=== PATIENT | male | born 1985 | race Caucasian/White ===

== ENCOUNTER 2023-07-17 13:23 | Outpatient (AMB) | payer OTHER, SELFPAY ==
--- NOTE | 2023-07-17 13:49 | AM.OFFWIN_ITS ---
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 Patient is reporting shortness of breath, sore throat. Symptoms present for the past few days. In addition patient has been almost having a panic attack. He reports symptoms of nervousness and difficulty breathing. He was taking Zoloft, gabapentin and clonidine for his symptoms. His insurance changed and he has been out of medications for the past 2 weeks. Has not seen his therapist recently. Physical Exam Vital Signs: Last Vital Signs Temp 97.3 F 07/17/23 13:53 Pulse 119 H 07/17/23 13:53 BP 112/70 07/17/23 13:53 Pulse Ox 85 L 07/17/23 13:53 Oxygen Delivery Method Room Air 07/17/23 13:53 BMI result Body Mass Index 32.1 Const General: cooperative and healthy appearing Nutritional Appearance: well nourished Orientation/consciousness: patient oriented x3 Limitations: no limitations HEENT Head: Yes normal to inspection Eyes General: appearance normal, both eyes and all related structures Neck Neck: Yes normal visual inspection Chest Chest palpation & inspection: normal palpation of entire chest wall Resp Effort & Inspection: normal respiratory effort Cardio Other: S1, S2, tachycardia Neuro General: patient oriented x3 Results AMB Rapid Strep AMB Rapid Strep Positive Last Edit by Hollie Woods MA on 07/17/23 14:10 Results Reviewed Results Reviewed: Laboratory Last Values Strep Scn [facility] Positive 07/17/23 14:09 Assessment & Plan Assessment & Plan (1) Upper respiratory tract infection: Code(s): J06.9 - Acute upper respiratory infection, unspecified Plan: Azithromycin called in. Strep test was positive. (2) Panic attack: Code(s): F41.0 - Panic disorder [episodic paroxysmal anxiety] Plan: His medications were refilled. Patient was seen by the community navigator and advised given. I have agreed to see him as a primary care provider. Patient will see me in the [place] office in the coming 2 weeks. Medications: New clonidine HCl 0.1 mg PO BID 60 tabs 0RF gabapentin 600 mg PO TID 90 tabs 0RF sertraline 100 mg PO QAM 30 tabs 0RF albuterol sulfate 90 mcg/actuation (Ventolin HFA) 1 inh inhalation QID PRN 8.5 grams 1RF shortness of breath or wheezing azithromycin take 500 mg today (day 1), then 250 mg for 4 days (days 2-5) PO 6 tabs 0RF Coding Level of Care Code New Pt Level 4 (95852) Diagnoses Upper respiratory tract infection J06.9 Panic attack F41.0
[2023-07-17 13:53] VITALS: BP 112/70; PULSE 119; TEMP 36.3; O2SAT 85; BMI 32.1
== END 2023-07-17 15:08 | disposition home or self-care (01) ==
PROVIDERS: Visit Provider Internal Medicine
DX: J06.9 Acute upper respiratory infection, unspecified (principal); F41.0 Panic disorder [episodic paroxysmal anxiety]
CPT/HCPCS: 99204

== ENCOUNTER 2023-08-02 10:56 | Outpatient (AMB) | payer OTHER, SELFPAY ==
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
[2023-08-02 11:42] VITALS: BP 100/66; PULSE 95; O2SAT 97; BMI 31.3
== END 2023-08-02 15:45 | disposition home or self-care (01) ==
PROVIDERS: Visit Provider Internal Medicine
DX: F41.1 Generalized anxiety disorder (principal)
CPT/HCPCS: 99214

== ENCOUNTER 2023-08-30 10:36 | Outpatient (AMB) | payer OTHER, SELFPAY ==
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
== END 2023-08-30 14:25 | disposition home or self-care (01) ==
LOC: HO.HOP 10:36
PROVIDERS: PCP Internal Medicine; Visit Provider Clinical Nurse Specialist Psychiatric/Mental Health
DX: F33.1 Major depressive disorder, recurrent, moderate (principal); F41.1 Generalized anxiety disorder; F41.0 Panic disorder [episodic paroxysmal anxiety]; R53.83 Other fatigue
CPT/HCPCS: 99204

== ENCOUNTER → 2023-08-30 10:36 | Outpatient (BNVA) | payer OTHER, SELFPAY | PROVIDERS: PCP Internal Medicine; Visit Provider Clinical Nurse Specialist Psychiatric/Mental Health | DX: F33.1 Major depressive disorder, recurrent, moderate (principal); F41.1 Generalized anxiety disorder; F41.0 Panic disorder [episodic paroxysmal anxiety] | CPT/HCPCS: 99202 ==

== ENCOUNTER 2023-09-05 13:57 | Outpatient (AMB) | payer OTHER, SELFPAY ==
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
[2023-09-05 14:03] VITALS: BP 120/70; PULSE 87; O2SAT 93; BMI 31.9
== END 2023-09-05 14:27 | disposition home or self-care (01) ==
PROVIDERS: PCP Internal Medicine; Visit Provider Internal Medicine
DX: F33.1 Major depressive disorder, recurrent, moderate (principal); M54.50 Low back pain, unspecified; G89.29 Other chronic pain
CPT/HCPCS: 99214; G2211

== ENCOUNTER 2023-09-27 10:43 | Outpatient (AMB) | payer OTHER, SELFPAY ==
--- NOTE | 2023-09-27 11:04 | A.OFFPSYCH_ITS ---
Intake Intake Visit Reasons: Depression Allergies No Known Allergies Allergy (Verified 09/05/23 14:34) Medication List - Last Reconciled 09/28/23 by Layla Harris APRN albuterol sulfate 90 mcg/actuation (Ventolin HFA) 1 inh inhalation QID PRN aripiprazole 2.5 mg (1/2 x 5 mg) PO BID clonazepam 0.5 mg orally take 1/2 tablet in morning if needed and take one tablet at bedtime; clonidine HCl 0.1 mg PO BEDTIME gabapentin 600 mg PO TID sertraline 200 mg (2 x 100 mg) PO QAM HPI- Psychiatric Chief Complaint: Depression HPI Narrative: pt reports improvements in mood and anxiety; feels less overwhelmed and less pressure; he still ruminates and feels bad about himself sometimes but is starting to see how stress and fatigue make that worse; increased self care and ability to verbalize feelings/needs. He reports no side effects. he continues to have anxiety and ruminate especially at [facility]. He is still anxious although the frequency and intensity is less. no SI or HI. no denis; no psychosis. Past Psychiatric History: treated for depression and anxiety at age 21 outpatient for short period Subjective Subjective Subjective Medication Compliance: Yes Side effects from medications: No Review of Systems Medical Review of Systems: unchanged Mental Status Exam Mental Status Exam Patient Appearance: Well Grooomed and Appropriate Patient Orientation: Person, Place, Time and Situation Level of Consciousness: Awake Patient Behavior: Appropriate Mood Description: Anxious Affect Description: Anxious Patient Cognition Impaired: No Ability to Follow Directions: Good Speech Pattern: Clear Memory Description: Intact Hallucinations: None Delusions: Not Present Thought Process: Intact, Rumination and Goal Oriented Thought Content: positive for Intact and positive for Goal Oriented Judgement: Good Assessment and Plan Assessment & Plan (1) Generalized anxiety disorder with panic attacks: Status: Acute Code(s): F41.1 - Generalized anxiety disorder; F41.0 - Panic disorder [episodic paroxysmal anxiety] (2) Major depressive disorder, recurrent, moderate: Status: Acute Code(s): F33.1 - Major depressive disorder, recurrent, moderate (3) Fatigue: Status: Acute Qualifiers: Fatigue type: chronic, unspecified Qualified Code(s): R53.82 - Chronic fatigue, unspecified Code(s): R53.83 - Other fatigue Plan increase zoloft to 200mg daily increase abilify to 2.5 mg BID continue clonidine 0.1mg at bedtime continue gabapentin 600mg tid continue clonazepam 0.5 mg take 1/2 ta in am and 1 tab in PM Medications: Changed From sertraline will need to fill early due to change of dose 150 mg (1.5 x 100 mg) PO QAM 45 tabs 0RF To sertraline will need to fill early due to change of dose 200 mg (2 x 100 mg) PO QAM 60 tabs 0RF From aripiprazole 2.5 mg (1/2 x 5 mg) PO BEDTIME 45 tabs 0RF To aripiprazole 2.5 mg (1/2 x 5 mg) PO BID 90 tabs 1RF Refilled clonidine HCl 0.1 mg PO BEDTIME 30 tabs 0RF clonazepam 0.5 mg orally take 1/2 tablet in morning if needed and take one tablet at bedtime; 45 tabs 0RF gabapentin 600 mg PO TID 90 tabs 0RF Counseling and coordination of Care Pt. Self Management counseling: Maintenance-social rhythm, Mindfulness, Sleep hygiene, Behavior activation and Cognitive restructuring Medication management counseling: Effectiveness, Side effects, Dosing range, Duration, Drug interaction and Adherence Diagnosis and Prognosis Counseling: Accuracy of diagnosis, Prognosis over time, Impact of diagnosis on life functions, Impact of family relationship, Problematic behaviors secondary to diagnosis and Adequacy of current interventions Details: I spent 30 minutes reviewing the record, seeing the patient and documenting in the medical record. Counseling provided to the patient/caregiver as outlined below. Addressed patient/caregiver concerns regarding current medication regime including eff ective adherence. Addressed patient/caregiver concerns regarding diagnosis and prognosis including accuracy of diagnosis, prognosis over time, impact of diagnosis. Addressed patient/caregiver concerns regarding impact of recent stressors. 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 mother very young age 16 when she had pt. bio father when pt age 8. pt oldest of 5 - has 2 sister and 2 brothers. pt graduated from and finished 2.5 yrs at [employer]. 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 He is and has 2 young children age 1.5 and 6 months . Has conflict with ; the family lives with his mother which can be stressful at times. Substance History: no substance abuse hx; uses etoh 1 x every few months, no THC, no opiates, no cocaine or other illicit drugs Trauma History: yes- childhood Coding Level of Care Code Est Pt Level 4 (96373) Diagnoses Generalized anxiety disorder with panic attacks F41.1; F41.0 Major depressive disorder, recurrent, moderate F33.1 Chronic fatigue R53.82 Fatigue type: chronic, unspecified
== END 2023-09-27 12:02 | disposition home or self-care (01) ==
LOC: HO.HOP 10:43
PROVIDERS: PCP Internal Medicine; Visit Provider Clinical Nurse Specialist Psychiatric/Mental Health
DX: F41.1 Generalized anxiety disorder (principal); F41.0 Panic disorder [episodic paroxysmal anxiety]; F33.1 Major depressive disorder, recurrent, moderate; R53.82 Chronic fatigue, unspecified
CPT/HCPCS: 99214

== ENCOUNTER 2023-09-27 10:43 | Outpatient (REF) | payer OTHER, SELFPAY | END 2023-09-27 10:44 | disposition home or self-care (01) | LOC: HO.LAB 10:43 | PROVIDERS: PCP Internal Medicine; Visit Provider Clinical Nurse Specialist Psychiatric/Mental Health | DX: F41.1 Generalized anxiety disorder (principal); F41.0 Panic disorder [episodic paroxysmal anxiety]; F33.1 Major depressive disorder, recurrent, moderate | CPT/HCPCS: 99212 ==

== ENCOUNTER 2023-10-25 10:30 | Outpatient (AMB) | payer OTHER, SELFPAY ==
--- NOTE | 2023-10-25 10:35 | MHC.OFFVISPS ---
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 He is not having any side effects; no sedation no dizziness, no nausea or vomiting. no SI or hI . Did not get blood work done but says he will today Past Psychiatric History: treated for depression and anxiety at age 21 outpatient for short period Subjective Subjective Subjective Medication Compliance: Yes Side effects from medications: No Review of Systems Medical Review of Systems: unchanged Mental Status Exam Mental Status Exam Patient Appearance: Well Grooomed, Perspiring and Appropriate Patient Orientation: Person, Place, Time and Situation Level of Consciousness: Awake Patient Behavior: Appropriate Mood Description: Anxious Affect Description: Anxious Ability to Follow Directions: Good Speech Pattern: Clear and Coherent Memory Description: Intact Hallucinations: None Delusions: Not Present Thought Process: Intact Thought Content: positive for Intact Judgement: Good Assessment and Plan Assessment & Plan (1) Major depressive disorder, recurrent, moderate: Status: Acute Code(s): F33.1 - Major depressive disorder, recurrent, moderate (2) Generalized anxiety disorder with panic attacks: Status: Acute Code(s): F41.1 - Generalized anxiety disorder; F41.0 - Panic disorder [episodic paroxysmal anxiety] Plan move abilify 5 mg to one in am increase clonidine o.1mg to two tabs at bedtime continue zoloft 200mg daily clonazepam 0.5mg take 1/2 qd and 1 at bedtime prn panic gabapentin 600mg tid Medications: Changed From aripiprazole 2.5 mg (1/2 x 5 mg) PO BID 90 tabs 1RF To aripiprazole 5 mg PO DAILY 30 tabs 2RF From clonidine HCl 0.1 mg PO BEDTIME 30 tabs 0RF To clonidine HCl 0.2 mg (2 x 0.1 mg) PO BEDTIME 60 tabs 2RF Refilled clonazepam 0.5 mg orally take 1/2 tablet in morning if needed and take one tablet at bedtime; 45 tabs 1RF gabapentin 600 mg PO TID 90 tabs 0RF On Hold sertraline will need to fill early due to change of dose Hold Comment: no refill need now 200 mg (2 x 100 mg) PO QAM 60 tabs 0RF Orders: Orders Hemoglobin A1c Today F33.1 - Major depressive disorder, recurrent, moderate, Z79.899 - Other intermission coordinator (current) drug therapy Counseling and coordination of Care Pt. Self Management counseling: Mod caffeine/ETOH intake and Sleep hygiene Medication management counseling: Effectiveness, Side effects, Dosing range, Duration, Drug interaction and Adherence Diagnosis and Prognosis Counseling: Accuracy of diagnosis, Prognosis over time and Adequacy of current interventions Details: I spent 30 minutes reviewing the record, seeing the patient and documenting in the medical record. Counseling provided to the patient/caregiver as outlined below. Addressed patient/caregiver concerns regarding current medication regime including effective adherence. Addressed patient/caregiver concerns regarding diagnosis and prognosis including accuracy of diagnosis, prognosis over time, impact of diagnosis. Addressed patient/caregiver concerns regarding impact of recent stressors. 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 mother very young age 17 when she had pt. bio father when pt age 8. pt oldest of 5 - has 2 sister and 2 brothers. pt graduated from and finished 2.5 yrs at [employer]. 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 He is and has 2 young children age 1.5 and 6 months . Has conflict with ; the family lives with his mother which can be stressful at times. Substance History: no substance abuse hx; uses etoh 1 x every few months, no THC, no opiates, no cocaine or other illicit drugs Trauma History: yes- childhood Coding Level of Care Code Est Pt Level 4 (45330) Diagnoses Major depressive disorder, recurrent, moderate F33.1 Generalized anxiety disorder with panic attacks F41.1; F41.0
== END 2023-10-25 10:56 | disposition home or self-care (01) ==
LOC: HO.HOP 10:30
PROVIDERS: PCP Internal Medicine; Visit Provider Clinical Nurse Specialist Psychiatric/Mental Health
DX: F33.1 Major depressive disorder, recurrent, moderate (principal); F41.1 Generalized anxiety disorder; F41.0 Panic disorder [episodic paroxysmal anxiety]
CPT/HCPCS: 99214

== ENCOUNTER 2023-10-25 10:30 | Outpatient (REF) | payer OTHER, SELFPAY | END 2023-10-25 10:31 | disposition home or self-care (01) | LOC: HO.LAB 10:30 | PROVIDERS: PCP Internal Medicine; Visit Provider Clinical Nurse Specialist Psychiatric/Mental Health | DX: F33.1 Major depressive disorder, recurrent, moderate (principal); F41.1 Generalized anxiety disorder; F41.0 Panic disorder [episodic paroxysmal anxiety] | CPT/HCPCS: 99212 ==

== ENCOUNTER 2023-11-03 12:11 | Emergency (ER) | payer OTHER, SELFPAY ==
--- NOTE | ~2023-11-03 | XR_ITS ---
EXAMINATION: XR CHEST CLINICAL INFORMATION: Reason for Exam cough COMPARISON: None TECHNIQUE: 2 views of the chest FINDINGS: Lines and tubes: None. Streaky left basilar airspace opacities likely reflecting atelectasis. No pleural effusion. No pneumothorax. Normal cardiomediastinal silhouette. XR/XR chest 2V IMPRESSION: Streaky left basilar airspace opacities likely reflecting atelectasis.
[2023-11-03 12:21] VITALS: BP 120/54; PULSE 89; RESP 16; TEMP 36.6; O2SAT 96; BMI 32.1
--- NOTE | 2023-11-03 12:21 | ED.URI ---
HPI - URI/Sore Throat General Chief Complaint: General Medical Stated Complaint: Diff breathing Time Seen by Provider: 11/03/23 12:49 Source: patient Mode of arrival: ambulatory Limitations: no limitations History of Present Illness ED Provider: SHORTY KOLB Narrative: 38 yo male with PMH of anxiety, chronic back pain, depression her with c/o 1 week cough, shortness of breath, chills, fatigue. Thought he was getting better but then felt worse again. Has hx of asthma does not have inhaler. Notes he is not feeling well. No travel, no sick contacts. Taking aleve on and off for symptoms. Trying to go to work but is tired. MD elicited complaint: cough Pertinent past history: asthma Onset (ago): week(s) (1) Consistency: intermittent Severity: moderate Description of mucous: clear and watery Able to tolerate fluids by mouth: Yes Exacerbating factors: exertion Relieving factors: nothing Associated symptoms: chills, myalgias, rhinorrhea, cough and shortness of breath Treatments prior to arrival: other (aleve) Related Data Previous Rx's ?Medication ?Instructions ?Recorded albuterol sulfate 90 mcg/actuation 1 inh inhalation QID PRN shortness 07/17/23 aerosol inhaler (Ventolin HFA) of breath or wheezing #8.5 grams aripiprazole 5 mg tablet 5 mg PO DAILY #30 tabs 10/25/23 clonazepam 0.5 mg tablet 0.5 mg PO .COMPLEX #45 tabs 10/25/23 clonidine HCl 0.1 mg tablet 0.2 mg (2 x 0.1 mg) PO BEDTIME #60 10/25/23 tabs gabapentin 600 mg tablet 600 mg PO TID #90 tabs 10/25/23 sertraline 100 mg tablet 200 mg (2 x 100 mg) PO QAM #60 tabs 10/25/23 albuterol sulfate 90 mcg/actuation 2 puff inhalation QID PRN 11/03/23 aerosol inhaler (Ventolin HFA) shortness of breath or wheezing #6.7 grams amoxicillin 875 mg-potassium 1 tab PO BID #14 tabs 11/03/23 clavulanate 125 mg tablet doxycycline hyclate 100 mg capsule 100 mg PO BID 7 days #14 caps 11/03/23 ondansetron 4 mg disintegrating 4 mg PO Q8H PRN nausea and 11/03/23 tablet vomiting #20 tabs prednisone 20 mg tablet 40 mg (2 x 20 mg) PO DAILY 4 days 11/03/23 #8 tabs Allergies Allergy/AdvReac Type Severity Reaction Status Date / Time No Known Allergies Allergy Verified 11/03/23 12:24 Review of Systems Review of Systems: Constitutional : No Fever, pos Chills, pos sweats ENT/Mouth : No Hoarseness, No sore throat, No Rhinorrhea Eyes: No Redness, No Discharge, No Vision Changes Cardiovascular : No Chest Pain, positive SOB, positive Dyspnea on Exertion, No Edema Respiratory : positive Cough, pos Sputum, positive Wheezing, Gastrointestinal : No Nausea, No Vomiting, No Diarrhea, No abdominal Pain Genitourinary : No Dysuria, No Hematuria Musculoskeletal : No joint pain, pos Myalgias Skin : No rash Neuro : pos Weakness, No Numbness, No Headache Psych : No anxiety, depression All other systems reviewed and are negative [facility] Past Medical History Attestation statement: The following information was validated with the patient. Source: old records reviewed Medical History Chronic lower back pain Generalized anxiety disorder Surgical History No pertinent past surgical history Family History Family History Mother Mental health disorder Social History Social History Housing: Apartment Alcohol intake: never Patient Tobacco Use Status: Current everyday Tobacco user Tobacco use type: Cigarette Cigarette Packs Per Day: 0.5 Cigarettes Per Day: 7 Smoked in Last 30 Days: Yes e-Cigarette/Vaping Use: Former Use Second Hand Smoke Exposure: Yes Use of substances other than those prescribed or required for medical reasons: No Advance Directives: No Do you have a plan to hurt others: No Plan service: No Current occupational status: employed 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 Oriented X3. No acute distress. Eyes: Pupils equal, round and reactive to light. ENT: Pharynx normal. Neck: Normal inspection. Neck supple. no tonsilar swelling or exudates CVS: Normal heart rate and rhythm. Pulses normal. Respiratory: No respiratory distress. Breath sounds diminished R base - rales noted Abdomen: Soft and nontender. Skin: Skin warm and dry. mildly pale skin color. Normal skin turgor. Extremities: No lower extremity edema. No calf ttp Neuro: Oriented X 3. No motor deficit. No sensory deficit. Course Course Course Narrative: This is a Rapid Medical Exam performed in triage by Roma Zavala PA-C. Full HPI, ROS and PE to be performed by primary ED provider. 38 year-old M w/ PMHx substance use, BRE, presenting to the ED c/o fatigue, generalized weakness, cough x1 week. Also reports CP, SOB. denies abdominal pain, N/V PE: pale, clammy Plan: Labs, UA, Viral testing, CXR Medications Administered Discontinued Medications Generic Name Dose Route Start Last Admin Trade Name Freq PRN Reason Stop Dose Admin Acetaminophen 975 mg 11/03/23 13:20 11/03/23 13:38 Acetaminophen 325 Mg Tablet PO 11/03/23 13:21 975 mg ONCE ONE Administration Albuterol Sulfate 2 puff 11/03/23 13:20 11/03/23 13:38 Albuterol Sulfate 90 Mcg 8 Gm Inhaler INHALE 11/03/23 13:21 2 puff ONCE ONE Administration Amoxicillin/Clavulanate Potassium 875 mg 11/03/23 14:12 11/03/23 14:19 Amoxicillin/Potassium Clav 875 Mg Tablet PO 11/03/23 14:13 875 mg ONCE ONE Administration Doxycycline Monohydrate 100 mg 11/03/23 14:12 11/03/23 14:19 Doxycycline Monohydrate 100 Mg Capsule PO 11/03/23 14:13 100 mg ONCE ONE Administration Prednisone 40 mg 11/03/23 13:20 11/03/23 13:38 Prednisone 20 Mg Tablet PO 11/03/23 13:21 40 mg ONCE ONE Administration Medical Decision Making Medical Decision Making MDM Narrative: 38 yo male with PMH of anxiety, chronic back pain, depression her with c/o cough, weakness, dyspnea at this time concern for viral syndrome vs pneumonia - will obtain basic labs, CXR, viral panel, start on steroids, inhaler and possible antibiotics. PERC negative Differential Diagnosis Differential Diagnoses: The differential diagnosis associated with the presentation includes viral syndrome, pneumonia Admission/Observation Consideration of admission/observation: Escalation of care including admission/observation considered tolerating, PO not hypoxic can be managed as outpatient Lab Data [facility] Lab Attestation statement: I reviewed the patient's lab results. 11/03/23 13:18 11/03/23 13:18 Labs: Lab Results 11/03/23 11/03/23 Range/Units 13:18 13:28 WBC 10.7 (4.8-10.8) X10*3/uL RBC 4.94 (4.60-5.80) X10*6/uL Hgb 13.3 L (14.0-18.0) g/dl Hct 40.1 L (42.0-52.0) % MCV 81.2 (80.0-98.0) fL MCH 26.9 L (27.0-33.0) pg MCHC 33.2 (31.0-36.0) g/dl RDW 13.2 (11.0-16.0) % Plt Count 346 (160-400) X10*3/uL MPV 8.8 L (9.4-12.4) fL Immature Gran % (Auto) 0.4 (0.0-0.4) % Neut % (Auto) 71.0 (45-73) % Lymph % (Auto) 18.9 L (20-40) % [place] % (Auto) 7.3 (2-11) % Eos % (Auto) 1.5 (0-4) % Baso % (Auto) 0.9 (0-2) % Lymph # (Auto) 2.0 (1.2-4.9) X10*3/uL [place] # (Auto) 0.8 (0.1-1.2) X10*3/uL Eos # (Auto) 0.2 (0.0-0.4) X10*3/uL Baso # (Auto) 0.1 (0.0-0.2) X10*3/uL Abs Immat Gran (auto) 0.04 H (0.00-0.03) X10*3/uL Absolute Neuts (auto) 7.6 (2.0-8.3) x10*3/uL Absolute Nucleated RBC 0.000 (0.0-0.012) X10*3/uL Nucleated RBC % (auto) 0.0 (0.0-0.2) /100WBC Sodium 140 (135-145) mmol/L Potassium 4.4 (3.3-5.1) mmol/L Chloride 104 (96-108) mmol/L Carbon Dioxide 25 (22-29) mmol/L Anion Gap 15 (12-20) BUN 11 (9-16) mg/dL Creatinine 0.88 (0.5-1.4) mg/dL Estim Creat Clear Calc 149.6 Estimated GFR > 60 Random Glucose 108 (60-115) mg/dL Calcium 9.8 (8.4-10.2) mg/dL Magnesium 2.0 (1.6-2.6) mg/dL Total Bilirubin 0.3 (0.0-1.0) mg/dL Direct Bilirubin 0.1 (0.0-0.5) mg/dL AST 17 (5-37) U/L ALT 14 (0-40) U/L Alkaline Phosphatase 84 (39-117) U/L Troponin I High Sens < 2.7 (<3.5-35.0) ng/L Total Protein 8.2 H (6.5-8.0) g/dL Albumin 4.1 (3.5-5.0) g/dL Urine Color Dark Yellow Urine Appearance Clear Urine pH 6.0 (5.0-9.0) Ur Specific [place] 1.025 (1.005-1.025) Urine Protein Negative (Neg-Trace) mg/dL Urine Glucose (UA) Negative (Negative) mg/dL Urine Ketones Trace (Negative) mg/dL Urine Blood Negative (Negative) Urine Nitrite Negative (Negative) Ur Leukocyte Esterase Negative (Negative) Influenza Type A (PCR) NEGATIVE (Negative) Influenza Type B (PCR) NEGATIVE (Negative) RSV RNA Qual (PCR) NEGATIVE (Negative) SARS-CoV-2 RNA (RT-PCR) NEGATIVE (Negative) Independent Interpretation I performed an independent interpretation of an: EKG and Plain X-Ray (pneumonia) Interpretation: Rate: 78 Rhythm: NSR [place]: left Normal P waves. Normal RUSTY. Normal QRS complex. ST T wave : no CODY, flat t waves v1 qTC: 446 prior studies: no acute ischemia The study has been interpreted contemporaneously by me. . Radiology Impression Discussion of test interpretation with radiology: I have reviewed the radiologist's reading. External Record Review External record reviewed: Office record Prescription Management I considered prescription management with: Antibiotic and Other Discharge Plan Discharge Clinical Impression: Pneumonia Qualifiers: Pneumonia type: due to unspecified organism Laterality: right Lung location: lower lobe of lung Qualified Code(s): J18.9 - Pneumonia, unspecified organism Patient Disposition: Home, Self-Care Instructions: Pneumonia (ED) Additional Instructions: labs reassuring CXR concerning for pneumonia flu covid rsv negative EKG and test for heart no acute ischemia rest stay hydrated next dose of antibiotics tonight - take a probiotic next dose of steroids tomorrow On amoxicillin-clavulanate, softer bowel movements are to be expected. Call your provider if you move your bowels more than 4 times a day, your bowel movements are almost all liquid, or you get a rash.? On doxycycline, do not take pills immediately before going to bed and swallow pills with plenty of water. Avoid direct sunlight, iron, antacids, and Pepto Bismol. Call your provider if you develop new ringing in your ears, new problems hearing, dizziness, difficulty swallowing, rash, abdominal discomfort, nausea, or diarrhea.? Prescriptions: New amoxicillin-pot clavulanate 875-125 mg tablet 1 tab PO BID Qty: 14 0RF albuterol sulfate [Ventolin HFA] 90 mcg/actuation HFA aerosol inhaler 2 puff inhalation QID PRN (Reason: shortness of breath or wheezing) Qty: 6.7 1RF doxycycline hyclate 100 mg capsule 100 mg PO BID 7 Days Qty: 14 0RF prednisone 20 mg tablet 40 mg PO DAILY 4 Days Qty: 8 0RF ondansetron 4 mg tablet,disintegrating 4 mg PO Q8H PRN (Reason: nausea and vomiting) Qty: 20 0RF No Action albuterol sulfate [Ventolin HFA] 90 mcg/actuation HFA aerosol inhaler 1 inh inhalation QID PRN (Reason: shortness of breath or wheezing) Qty: 8.5 1RF clonidine HCl 0.1 mg tablet 0.2 mg PO BEDTIME Qty: 60 2RF aripiprazole 5 mg tablet 5 mg PO DAILY Qty: 30 2RF gabapentin 600 mg tablet 600 mg PO TID Qty: 90 0RF sertraline 100 mg tablet 200 mg PO QAM Qty: 60 0RF Hold Instructions: no refill need now Rx Instructions: will need to fill early due to change of dose clonazepam 0.5 mg tablet 0.5 mg PO .COMPLEX Qty: 45 1RF Rx Instructions: 0.5 mg orally take 1/2 tablet in morning if needed and take one tablet at bedtime; Stand Alone Forms: Work/School Release Interventions: ED Discharge Assessment Last Done: 11/03/23 14:44 Discharge Date/Time: 11/03/23 14:45 Print Language: Haitian
--- NOTE | 2023-11-03 12:22 | ECG_ITS ---
Test Reason : cp Blood Pressure : / mmHG Vent. Rate : 078 BPM Atrial Rate : 078 BPM P-R Int : 170 ms QRS Dur : 080 ms QT Int : 392 ms P-R-T Axes : 056 -42 015 degrees QTc Int : 446 ms Normal sinus rhythm Left axis deviation Inferior infarct , age undetermined Abnormal ECG No previous ECGs available Referred By: Roma Zavala Electronically Signed By:MARTHA JEFFREY
[2023-11-03 12:39] VITALS: BP 120/54; PULSE 89; RESP 16; TEMP 36.6; O2SAT 96
--- NOTE | 2023-11-03 13:02 | PC.NURSE ---
Pt comes to ED with c/o difficulty breathing and chest pain from coughing. Pt smoke 1/5 ppd. VSS, afebrile, A&Ox3 CXR done, awaiting results. Pt with poor vascular access, heat pack in place to attempteding
--- NOTE | 2023-11-03 13:09 | PC.NURSE ---
Pt comes to ED with c/o difficulty breathing and chest pain from coughing. Pt smoke 1/5 ppd. VSS, afebrile, A&Ox3 CXR done, awaiting results. Pt with poor vascular access, heat pack in place for re-attempt at obtaining blood labs.
[2023-11-03 13:22] LABS: MANUAL DIFF FLAG NO
[2023-11-03 13:23] LABS: Basophils Absolute Auto 0.1 X10*3/uL (0.0-0.2); Basophils Percent Auto 0.9 % (0-2); Eosinophils Absolute Auto 0.2 X10*3/uL (0.0-0.4); Eosinophils Percent Auto 1.5 % (0-4); Hematocrit 40.1 % (42.0-52.0); Hemoglobin 13.3 g/dl (14.0-18.0); Imm Gran Abs Auto 0.04 X10*3/uL (0.00-0.03); Imm Gran Pct Auto 0.4 % (0.0-0.4); Lymphocytes Percent Auto 18.9 % (20-40); Mean Corpuscular HGB Conc 33.2 g/dl (31.0-36.0); Mean Corpuscular Hemoglobin 26.9 pg (27.0-33.0); Mean Corpuscular Volume 81.2 fL (80.0-98.0); Mean Platelet Volume 8.8 fL (9.4-12.4); Monocytes Absolute Auto 0.8 X10*3/uL (0.1-1.2); Monocytes Percent Auto 7.3 % (2-11); Neutrophils Absolute Auto 7.6 x10*3/uL (2.0-8.3); Platelet Count 346 X10*3/uL (160-400); Red Blood Count 4.94 X10*6/uL (4.60-5.80); Red Cell Distribution Width 13.2 % (11.0-16.0); White Blood Count 10.7 X10*3/uL (4.8-10.8)
[2023-11-03 13:36] LABS: Appearance Urine Clear; Color Urine Dark Yellow; Glucose Urine UA Negative (Negative); Leukocyte Esterase Urine Negative (Negative); Nitrite Urine Negative (Negative); Specific Gravity - Urine 1.025 (1.005-1.025); Urine Blood Negative (Negative); Urine Ketones Trace mg/dL (Negative); Urine Protein Negative (Neg-Trace)
[2023-11-03] MEDS: predniSONE 20 MG TABLET 40 MG PO (13:38)
[2023-11-03] MEDS: Acetaminophen 325 MG TABLET 975 MG PO (13:38)
[2023-11-03] MEDS: Albuterol Sulfate 90 MCG 8 GM INHALER 2 PUFF INHALE (13:38)
[2023-11-03 13:49] LABS: Alanine Aminotransferase 14 U/L (0-40); Albumin Level 4.1 g/dL (3.5-5.0); Alkaline Phosphatase 84 U/L (39-117); Anion Gap 15 (12-20); Aspartate Amino Transferase 17 U/L (5-37); Bilirubin Direct 0.1 mg/dL (0.0-0.5); Bilirubin Total 0.3 mg/dL (0.0-1.0); Blood Urea Nitrogen 11 mg/dL (9-16); Calcium 9.8 mg/dL (8.4-10.2); Carbon Dioxide 25 mmol/L (22-29); Chloride 104 mmol/L (96-108); Creatinine Clr Calc Pharmacy 149.6; Estimated Glomerular Filt Rate > 60; Glucose Random 108 mg/dL (60-115); Potassium 4.4 mmol/L (3.3-5.1); Sodium 140 mmol/L (135-145); Total Protein 8.2 g/dL (6.5-8.0)
[2023-11-03 13:58] LABS: Troponin-I High Sensitivity < 2.7 ng/L (<3.5-35.0)
[2023-11-03 13:59] LABS: Influenza A PCR NEGATIVE (Negative); Influenza B PCR NEGATIVE (Negative); Resp Syncy Virus RNA Qual PCR NEGATIVE (Negative); SARS COV2 PCR INHOUSE NEGATIVE (Negative)
[2023-11-03] MEDS: Amoxicillin/Potassium Clav 875 MG TABLET PO (14:19)
[2023-11-03] MEDS: Doxycycline Monohydrate 100 MG CAPSULE PO (14:19)
[2023-11-03 14:32] VITALS: BP 107/62; PULSE 64; RESP 14; O2SAT 91
[2023-11-03 14:44] VITALS: BP 113/64; PULSE 76; RESP 16; TEMP 36.9; O2SAT 96
== END 2023-11-03 14:45 | disposition home or self-care (01) ==
PROVIDERS: Physician Assistant; Emergency Provider Emergency Medicine; PCP Internal Medicine
DX: J18.9 Pneumonia, unspecified organism (principal); R06.02 Shortness of breath; Z03.818 Encounter for observation for suspected exposure to other biological agents ruled out; R05.9 Cough, unspecified; F17.210 Nicotine dependence, cigarettes, uncomplicated; Z79.899 Other long term (current) drug therapy
CPT/HCPCS: 0241U; 71046; 80048; 80076; 81003; 83735; 84484; 85025; 93005; 99284; 99285

== ENCOUNTER → 2023-11-03 12:22 | Outpatient (BNV) | payer OTHER, SELFPAY | PROVIDERS: Emergency Provider Emergency Medicine; PCP Internal Medicine; Visit Provider Internal Medicine | DX: R07.9 Chest pain, unspecified (principal); R94.31 Abnormal electrocardiogram [ECG] [EKG] | CPT/HCPCS: 93010 ==

== ENCOUNTER 2023-12-13 13:00 | Outpatient (AMB) | payer OTHER, SELFPAY ==
--- NOTE | 2023-12-13 13:09 | MHC.OFFVISPS ---
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 Required: No Allergies No Known Allergies Allergy (Verified 11/03/23 12:24) Medication List - Last Reconciled 12/13/23 by Layla Harris APRN albuterol sulfate 90 mcg/actuation (Ventolin HFA) 2 puffs inhalation QID PRN albuterol sulfate 90 mcg/actuation (Ventolin HFA) 1 inh inhalation QID PRN amoxicillin-pot clavulanate 875-125 mg 1 tab PO BID aripiprazole 5 mg PO DAILY clonazepam 0.5 mg orally take 1/2 tablet in morning if needed and take one tablet at bedtime; clonidine HCl 0.2 mg (2 x 0.1 mg) PO BEDTIME doxycycline hyclate 100 mg PO BID 7 days gabapentin 600 mg PO TID ondansetron 4 mg PO Q8H PRN prednisone 40 mg (2 x 20 mg) PO DAILY 4 days sertraline 200 mg (2 x 100 mg) PO QAM HPI- Psychiatric Chief Complaint: depression HPI Narrative: pt reports improved mood overall; he continues to ruminate daily; he sometimes has trouble falling asleep due to worrying. He has less anxiety but still has periods when he feels panicky. He utilizes the clonazepam prn with good relief; he recently flew on a plane and took 1mg clonazepam due to severe anxiety but did not continue taking 1mg . Discussed importance of taking the lowest possible amount and he verbalized agreement and understanding. No SI no HI. discussed increasing abilify to 7.5mg daily for ruminating and he agrees Past Psychiatric History: treated for depression and anxiety at age 21 outpatient for short period Subjective Subjective Subjective Medication Compliance: Yes Side effects from medications: No Review of Systems Medical Review of Systems: unchanged Mental Status Exam Mental Status Exam Patient Appearance: Well Grooomed and Appropriate Patient Orientation: Person, Place, Time and Situation Level of Consciousness: Awake and Appropriate Patient Behavior: Appropriate Mood Description: Anxious (slightly) Affect Description: Anxious (slightly) Patient Cognition Impaired: No Ability to Follow Directions: Good Speech Pattern: Clear Hallucinations: None Delusions: Not Present Thought Process: Intact and Rumination Thought Content: positive for Intact and positive for Preoccupation (worry) Judgement: Fair Assessment and Plan Assessment & Plan (1) Major depressive disorder, recurrent, moderate: Status: Acute Code(s): F33.1 - Major depressive disorder, recurrent, moderate (2) Generalized anxiety disorder with panic attacks: Status: Acute Code(s): F41.1 - Generalized anxiety disorder; F41.0 - Panic disorder [episodic paroxysmal anxiety] Plan increase aripiprazole to 7.5 mg daily Medications: New aripiprazole 7.5 mg (1/2 x 15 mg) PO DAILY 45 tabs 2RF Refilled sertraline will need to fill early due to change of dose 200 mg (2 x 100 mg) PO QAM 60 tabs 2RF gabapentin 600 mg PO TID 90 tabs 2RF clonazepam 0.5 mg orally take 1/2 tablet in morning if needed and take one tablet at bedtime; 45 tabs 2RF clonidine HCl 0.2 mg (2 x 0.1 mg) PO BEDTIME 60 tabs 2RF Discontinued aripiprazole Discontinued Reason: Doctor's Order 5 mg PO DAILY 30 tabs 2RF Counseling and coordination of Care Pt. Self Management counseling: Maintenance-social rhythm, Mod caffeine/ETOH intake, Sleep hygiene, Behavior activation and General coping skills Medication management counseling: Effectiveness, Side effects, Dosing range, Duration, Drug interaction and Adherence Diagnosis and Prognosis Counseling: Accuracy of diagnosis, Prognosis over time, Impact of diagnosis on life functions, Impact of family relationship, Problematic behaviors secondary to diagnosis and Adequacy of current interventions Details: I spent 30 minutes reviewing the record, seeing the patient and documenting in the medical record. Counseling provided to the patient/caregiver as outlined below. Addressed patient/caregiver concerns regarding current medication regime including effective adherence. Addressed patient/caregiver concerns regarding diagnosis and prognosis including accuracy of diagnosis, prognosis over time, impact of diagnosis. Addressed patient/caregiver concerns regarding impact of recent stressors. 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 mother very young age 16 when she had pt. bio father when pt age 8. pt oldest of 5 - has 2 sister and 2 brothers. pt graduated from and finished 2.5 yrs at [employer]. 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 He is and has 2 young children age 1.5 and 6 months . Has conflict with ; the family lives with his mother which can be stressful at times. Substance History: no substance abuse hx; uses etoh 1 x every few months, no THC, no opiates, no cocaine or other illicit drugs Trauma History: yes- childhood Coding Level of Care Code Est Pt Level 4 (79725) Diagnoses Major depressive disorder, recurrent, moderate F33.1 Generalized anxiety disorder with panic attacks F41.1; F41.0
== END 2023-12-13 13:56 | disposition home or self-care (01) ==
LOC: HO.HOP 13:01
PROVIDERS: PCP Internal Medicine; Visit Provider Clinical Nurse Specialist Psychiatric/Mental Health
DX: F33.1 Major depressive disorder, recurrent, moderate (principal); F41.1 Generalized anxiety disorder; F41.0 Panic disorder [episodic paroxysmal anxiety]
CPT/HCPCS: 99214

== ENCOUNTER → 2023-12-13 13:00 | Outpatient (BNVA) | payer OTHER, SELFPAY | PROVIDERS: PCP Internal Medicine; Visit Provider Clinical Nurse Specialist Psychiatric/Mental Health | DX: F33.1 Major depressive disorder, recurrent, moderate (principal); F41.1 Generalized anxiety disorder; F41.0 Panic disorder [episodic paroxysmal anxiety]; Z71.89 Other specified counseling; Z79.899 Other long term (current) drug therapy | CPT/HCPCS: 99212 ==

== ENCOUNTER 2024-03-20 15:38 | Outpatient (AMB) | payer OTHER, SELFPAY ==
--- NOTE | 2024-03-20 17:15 | A.OFFPSYCH_ITS ---
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 Allergies No Known Allergies Allergy (Verified 11/03/23 12:24) Medication List - Last Reconciled 03/21/24 by Layla Harris APRN albuterol sulfate 90 mcg/actuation (Ventolin HFA) 2 puffs inhalation QID PRN albuterol sulfate 90 mcg/actuation (Ventolin HFA) 1 inh inhalation QID PRN amoxicillin-pot clavulanate 875-125 mg 1 tab PO BID aripiprazole 7.5 mg (1/2 x 15 mg) PO DAILY clonazepam 0.5 mg orally take 1/2 tablet in morning if needed and take one tablet at bedtime; clonidine HCl 0.2 mg PO BEDTIME doxycycline hyclate 100 mg PO BID 7 days gabapentin 600 mg PO TID ondansetron 4 mg PO Q8H PRN prednisone 40 mg (2 x 20 mg) PO DAILY 4 days sertraline 200 mg (2 x 100 mg) PO QAM HPI- Psychiatric Chief Complaint: consult follow up HPI Narrative: pt reports he is stable. reports medication are helping; denies side effects. He reports he is participating in therapy. Past Psychiatric History: treated for depression and anxiety at age 21 outpatient for short period Subjective Subjective Subjective Medication Compliance: Yes Side effects from medications: No Review of Systems Medical Review of Systems: unchanged Mental Status Exam Mental Status Exam Patient Orientation: Person, Place, Time and Situation Level of Consciousness: Appropriate Patient Behavior: Appropriate Mood Description: Calm Affect Description: Calm Patient Cognition Impaired: No Ability to Follow Directions: Good Speech Pattern: Clear Memory Description: Intact Hallucinations: None Delusions: Not Present Thought Process: Intact and Goal Oriented Thought Content: positive for Intact and positive for Goal Oriented Judgement: Good Telehealth Telehealth Telehealth Platform: Telephone Location of provider rendering services: practice address Location of patient: other (work in the [facility] [employer], [facility]) Patient Identification confirmed using: Name, : Yes Telehealth method: voice only Patient verbally consented to treatment: Yes Patient verbally consented to billing insurance company: Yes Patient informed of any privacy concerns related to visit: Yes Minutes spent on Phone/Video with Pt.: 15 Assessment and Plan Assessment & Plan (1) Major depressive disorder, recurrent, moderate: Status: Acute Code(s): F33.1 - Major depressive disorder, recurrent, moderate (2) Generalized anxiety disorder with panic attacks: Status: Acute Code(s): F41.1 - Generalized anxiety disorder; F41.0 - Panic disorder [episodic paroxysmal anxiety] Medications: Changed From sertraline will need to fill early due to change of dose 200 mg (2 x 100 mg) PO QAM 60 tabs 2RF To sertraline 200 mg (2 x 100 mg) PO QAM 60 tabs 2RF Refilled clonidine HCl 0.2 mg PO BEDTIME 30 tabs 2RF gabapentin 600 mg PO TID 90 tabs 2RF Counseling and coordination of Care Pt. Self Management counseling: Sleep hygiene and General coping skills Medication management counseling: Effectiveness, Side effects, Dosing range, Duration, Drug interaction and Adherence Diagnosis and Prognosis Counseling: Accuracy of diagnosis, Prognosis over time, Impact of diagnosis on life functions and Adequacy of current interventions Details: I spent 25 minutes reviewing the record, seeing the patient and documenting in the medical record. Counseling provided to the patient/caregiver as outlined below. Addressed patient/caregiver concerns regarding current medication regime including effective adherence. Addressed patient/caregiver concerns regarding diagnosis and prognosis including accuracy of diagnosis, prognosis over time, impact of diagnosis. Addressed patient/caregiver concerns regarding impact of recent stressors. 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 mother very young age 16 when she had pt. bio father when pt age 8. pt oldest of 5 - has 2 sister and 2 brothers. pt graduated from and finished 2.5 yrs at [employer]. 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 He is and has 2 young children age 1.5 and 6 months . Has conflict with ; the family lives with his mother which can be stressful at times. Substance History: no substance abuse hx; uses etoh 1 x every few months, no THC, no opiates, no cocaine or other illicit drugs Trauma History: yes- childhood Coding Level of Care Code Tele Est Pt Level 3 (79206) Diagnoses Major depressive disorder, recurrent, moderate F33.1 Generalized anxiety disorder with panic attacks F41.1; F41.0
== END 2024-03-20 15:42 | disposition home or self-care (01) ==
LOC: HO.HOP 15:38
PROVIDERS: PCP Internal Medicine; Visit Provider Clinical Nurse Specialist Psychiatric/Mental Health
DX: F33.1 Major depressive disorder, recurrent, moderate (principal); F41.1 Generalized anxiety disorder; F41.0 Panic disorder [episodic paroxysmal anxiety]
CPT/HCPCS: 99213

== ENCOUNTER → 2024-05-15 11:58 | Outpatient (BNVA) | payer OTHER, SELFPAY | PROVIDERS: PCP Internal Medicine; Visit Provider Clinical Nurse Specialist Psychiatric/Mental Health | DX: F33.1 Major depressive disorder, recurrent, moderate (principal); F41.1 Generalized anxiety disorder; F41.0 Panic disorder [episodic paroxysmal anxiety]; Z71.89 Other specified counseling | CPT/HCPCS: 99212 ==

== ENCOUNTER 2024-06-30 14:36 | Emergency (ER) | payer OTHER, SELFPAY ==
--- NOTE | ~2024-06-30 | XR_ITS ---
CLINICAL HISTORY: cough 1 view chest x-ray Comparison: CR/SD/SR - XR CHEST 2V - 11/03/23 12:36 EDT Findings: Bronchial wall thickening, which can be seen with asthma, reactive airways process or viral illness. Patchy opacities in the left lower lobe and lingula suggesting infiltrates. Heart size is normal. No acute fracture. IMPRESSION: 1. Patchy opacities in the left lower lobe and lingula suggesting infiltrates. 2. Mild central bronchial wall thickening. This document has been electronically signed by: Lyn Levy DO on 06/30/2024 16:52:28
[2024-06-30 15:36] VITALS: BP 122/52; PULSE 71; RESP 18; TEMP 37.1; O2SAT 98; BMI 31.5
--- NOTE | 2024-06-30 15:38 | ED.GENADULT ---
HPI - General Adult General Chief complaint: Upper Respiratory Symptoms Stated complaint: diff breathing Time Seen by Provider: 06/30/24 19:54 Related Data Previous Rx's ?Medication ?Instructions ?Recorded albuterol sulfate 90 mcg/actuation 1 inh inhalation QID PRN shortness 07/17/23 aerosol inhaler (Ventolin HFA) of breath or wheezing #8.5 grams albuterol sulfate 90 mcg/actuation 2 puff inhalation QID PRN 11/03/23 aerosol inhaler (Ventolin HFA) shortness of breath or wheezing #6.7 grams amoxicillin 875 mg-potassium 1 tab PO BID #14 tabs 11/03/23 clavulanate 125 mg tablet doxycycline hyclate 100 mg capsule 100 mg PO BID 7 days #14 caps 11/03/23 prednisone 20 mg tablet 40 mg (2 x 20 mg) PO DAILY 4 days 11/03/23 #8 tabs ondansetron 4 mg disintegrating 4 mg PO Q8H PRN nausea and 11/20/23 tablet vomiting #20 tabs aripiprazole 15 mg tablet 7.5 mg (1/2 x 15 mg) PO DAILY #45 05/15/24 tabs clonazepam 0.5 mg tablet 0.5 mg PO .COMPLEX #45 tabs 05/15/24 clonidine HCl 0.2 mg tablet 0.2 mg PO BEDTIME #30 tabs 05/15/24 gabapentin 600 mg tablet 600 mg PO TID #90 tabs 05/15/24 sertraline 100 mg tablet 200 mg (2 x 100 mg) PO QAM #60 tabs 05/15/24 Allergies Allergy/AdvReac Type Severity Reaction Status Date / Time No Known Allergies Allergy Verified 06/30/24 15:37 [facility] Past Medical History Medical History (Updated 06/30/24 @ 20:15 by WINTER Nash) 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 Chronic lower back pain Surgical History No pertinent past surgical history Family History Family History Mother Mental health disorder Social History Social History Housing: Apartment Alcohol intake: never Patient Tobacco Use Status: Current everyday Tobacco user Tobacco use type: Cigarette Cigarette Packs Per Day: 0.5 Cigarettes Per Day: 7 e-Cigarette/Vaping Use: Former Use Second Hand Smoke Exposure: Yes service: No Current occupational status: employed 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 The patient is a 39-year-old male with a history of tobacco abuse, anxiety, depression who presents with cough x1 month. Patient states the cough is worsened over the past 2 weeks. He does not have a formal diagnosis of asthma or COPD. On exam was lungs are clear, has an active cough that is dry. We will be screening basic labs a viral panel and a chest x-ray. The patient is stable and can return to the waiting room pending his full medical assessment. Medical Decision Making Lab Data 06/30/24 16:06 06/30/24 16:06 Labs: Lab Results 06/30/24 Range/Units 16:06 WBC 7.8 (4.8-10.8) X10*3/uL RBC 4.70 (4.60-5.80) X10*6/uL Hgb 12.0 L (14.0-18.0) g/dl Hct 37.8 L (42.0-52.0) % MCV 80.4 (80.0-98.0) fL MCH 25.5 L (27.0-33.0) pg MCHC 31.7 (31.0-36.0) g/dl RDW 14.2 (11.0-16.0) % Plt Count 283 (160-400) X10*3/uL MPV 8.7 L (9.4-12.4) fL Immature Gran % (Auto) 0.3 (0.0-0.4) % Neut % (Auto) 58.5 (45-73) % Lymph % (Auto) 30.5 (20-40) % [place] % (Auto) 6.3 (2-11) % Eos % (Auto) 3.4 (0-4) % Baso % (Auto) 1.0 (0-2) % Lymph # (Auto) 2.4 (1.2-4.9) X10*3/uL [place] # (Auto) 0.5 (0.1-1.2) X10*3/uL Eos # (Auto) 0.3 (0.0-0.4) X10*3/uL Baso # (Auto) 0.1 (0.0-0.2) X10*3/uL Abs Immat Gran (auto) 0.02 (0.00-0.03) X10*3/uL Absolute Neuts (auto) 4.6 (2.0-8.3) x10*3/uL Absolute Nucleated RBC 0.000 (0.0-0.012) X10*3/uL Nucleated RBC % (auto) 0.0 (0.0-0.2) /100WBC Sodium 139 (135-145) mmol/L Potassium 4.1 (3.3-5.1) mmol/L Chloride 104 (96-108) mmol/L Carbon Dioxide 26 (22-29) mmol/L Anion Gap 13 (12-20) BUN 10 (9-16) mg/dL Creatinine 0.78 (0.5-1.4) mg/dL Estim Creat Clear Calc 170.5 Estimated GFR > 60 Random Glucose 139 H (60-115) mg/dL Calcium 9.0 D (8.4-10.2) mg/dL Magnesium 2.0 (1.6-2.6) mg/dL Total Bilirubin 0.2 (0.0-1.0) mg/dL AST 31 (5-37) U/L ALT 29 (0-40) U/L Alkaline Phosphatase 76 (39-117) U/L Total Protein 7.9 (6.5-8.0) g/dL Albumin 3.9 (3.5-5.0) g/dL Influenza Type A (PCR) NEGATIVE (Negative) Influenza Type B (PCR) NEGATIVE (Negative) RSV RNA Qual (PCR) NEGATIVE (Negative) SARS-CoV-2 RNA (RT-PCR) NEGATIVE (Negative) Discharge Plan Discharge Clinical Impression: Cough Patient Disposition: Left Without Being Seen Prescriptions: No Action ondansetron 4 mg tablet,disintegrating 4 mg PO Q8H PRN (Reason: nausea and vomiting) Qty: 20 0RF amoxicillin-pot clavulanate 875-125 mg tablet 1 tab PO BID Qty: 14 0RF albuterol sulfate [Ventolin HFA] 90 mcg/actuation HFA aerosol inhaler 2 puff inhalation QID PRN (Reason: shortness of breath or wheezing) Qty: 6.7 1RF doxycycline hyclate 100 mg capsule 100 mg PO BID 7 Days Qty: 14 0RF prednisone 20 mg tablet 40 mg PO DAILY 4 Days Qty: 8 0RF albuterol sulfate [Ventolin HFA] 90 mcg/actuation HFA aerosol inhaler 1 inh inhalation QID PRN (Reason: shortness of breath or wheezing) Qty: 8.5 1RF aripiprazole 15 mg tablet 7.5 mg PO DAILY Qty: 45 2RF clonazepam 0.5 mg tablet 0.5 mg PO .COMPLEX Qty: 45 2RF Rx Instructions: 0.5 mg orally take 1/2 tablet in morning if needed and take one tablet at bedtime; clonidine HCl 0.2 mg tablet 0.2 mg PO BEDTIME Qty: 30 2RF gabapentin 600 mg tablet 600 mg PO TID Qty: 90 2RF sertraline 100 mg tablet 200 mg PO QAM Qty: 60 2RF Print Language: Egyptian
[2024-06-30 16:15] LABS: MANUAL DIFF FLAG NO
[2024-06-30 16:16] LABS: Basophils Absolute Auto 0.1 X10*3/uL (0.0-0.2); Eosinophils Absolute Auto 0.3 X10*3/uL (0.0-0.4); Eosinophils Percent Auto 3.4 % (0-4); Hematocrit 37.8 % (42.0-52.0); Imm Gran Abs Auto 0.02 X10*3/uL (0.00-0.03); Imm Gran Pct Auto 0.3 % (0.0-0.4); Lymphocytes Absolute Auto 2.4 X10*3/uL (1.2-4.9); Lymphocytes Percent Auto 30.5 % (20-40); Mean Corpuscular HGB Conc 31.7 g/dl (31.0-36.0); Mean Corpuscular Hemoglobin 25.5 pg (27.0-33.0); Mean Corpuscular Volume 80.4 fL (80.0-98.0); Mean Platelet Volume 8.7 fL (9.4-12.4); Monocytes Absolute Auto 0.5 X10*3/uL (0.1-1.2); Monocytes Percent Auto 6.3 % (2-11); Neutrophils Absolute Auto 4.6 x10*3/uL (2.0-8.3); Neutrophils Percent Auto 58.5 % (45-73); Platelet Count 283 X10*3/uL (160-400); Red Cell Distribution Width 14.2 % (11.0-16.0); White Blood Count 7.8 X10*3/uL (4.8-10.8)
[2024-06-30 16:35] LABS: Alanine Aminotransferase 29 U/L (0-40); Albumin Level 3.9 g/dL (3.5-5.0); Anion Gap 13 (12-20); Aspartate Amino Transferase 31 U/L (5-37); Bilirubin Total 0.2 mg/dL (0.0-1.0); Blood Urea Nitrogen 10 mg/dL (9-16); Carbon Dioxide 26 mmol/L (22-29); Chloride 104 mmol/L (96-108); Creatinine Clr Calc Pharmacy 170.5; Estimated Glomerular Filt Rate > 60; Glucose Random 139 mg/dL (60-115); Potassium 4.1 mmol/L (3.3-5.1); Sodium 139 mmol/L (135-145); Total Protein 7.9 g/dL (6.5-8.0)
[2024-06-30 16:40] LABS: Alkaline Phosphatase 76 U/L (39-117)
[2024-06-30 16:53] LABS: Influenza A PCR NEGATIVE (Negative); Influenza B PCR NEGATIVE (Negative); Resp Syncy Virus RNA Qual PCR NEGATIVE (Negative); SARS COV2 PCR INHOUSE NEGATIVE (Negative)
== END 2024-06-30 21:55 | disposition left against medical advice (07) ==
LOC: HO.ED 21:53
PROVIDERS: Physician Assistant Medical; Emergency Provider Emergency Medicine; PCP Internal Medicine
DX: R05.9 Cough, unspecified (principal); Z03.818 Encounter for observation for suspected exposure to other biological agents ruled out; F17.210 Nicotine dependence, cigarettes, uncomplicated
CPT/HCPCS: 0241U; 71045; 80053; 83735; 85025; 99281; 99283

== ENCOUNTER → 2024-06-30 15:37 | Outpatient (BNV) | payer OTHER, SELFPAY | PROVIDERS: PCP Internal Medicine; Visit Provider Radiology Diagnostic Radiology | DX: R05.9 Cough, unspecified (principal) | CPT/HCPCS: 71045 ==

== ENCOUNTER 2025-02-02 16:44 | Inpatient (IN) | payer OTHER, SELFPAY ==
[2025-02-02] VITALS (24 sets, daily range): BP systolic 81–153; BP diastolic 40–80; PULSE 76–123; RESP 18–33; TEMP 36.7–38.9; O2SAT 73–95; BMI 34.5; BMI 36.2; BMI 33.6
--- NOTE | ~2025-02-02 | XR_ITS ---
CLINICAL HISTORY: ETT OGT placement 1 view chest x-ray Comparison: CR - XR CHEST 1V - 02/02/25 16:54 EDT CR - XR CHEST 1V - 06/30/24 16:26 EDT Findings: Low lung volume. Diffuse consolidation of the left lung. Possible small bilateral pleural effusions. ET tube is approximately 5.7 cm above the jacinto. The enteric tube tip and side port is within the region of gastric fundus. Normal size heart. No acute fracture. IMPRESSION: 1. ET tube is approximately 5.7 cm above the jacinto. 2. Satisfactory placement of the enteric tube. 3. Diffuse left lung consolidation may represent pneumonia. Low lung volume. Possible small bilateral pleural effusions. This document has been electronically signed by: Anna Marie Zamora MD on 02/02/2025 22:40:52
--- NOTE | ~2025-02-02 | XR_ITS ---
CLINICAL HISTORY: sob 1 view chest x-ray Comparison: CR - XR CHEST 1V - 06/30/24 16:26 EDT Findings: Low lung volume. Diffuse consolidation of the left lung. Possible small bilateral pleural effusions. ET tube is approximately 5.7 cm above the jacinto. The enteric tube tip and side port is within the region of gastric fundus. Normal size heart. No acute fracture. IMPRESSION: 1. ET tube is approximately 5.7 cm above the jacinto. 2. Satisfactory placement of the enteric tube. 3. Diffuse left lung consolidation may represent pneumonia. Low lung volume. Possible small bilateral pleural effusions. This document has been electronically signed by: Anna Marie Zamora MD on 02/02/2025 22:24:44
--- NOTE | ~2025-02-02 | CT_ITS ---
CLINICAL HISTORY: New onset seizures CT head without contrast Comparison: None provided Findings: No acute intracranial fluid collection or hematoma. No acute process in sinuses or mastoids. No acute bony abnormality. Impression: No acute intracranial process This document has been electronically signed by: Cleve Cox MD on 02/08/2025 23:37:47
--- NOTE | ~2025-02-02 | XR_ITS ---
CLINICAL HISTORY: possible aspiration 1 view chest x-ray Comparison: 02/02/2025 Findings: Improving bilateral consolidation. Residual patchy bilateral consolidation. No pneumothorax. Heart size normal. No acute bony abnormalities. Impression: Improving bilateral consolidation with residual densities This document has been electronically signed by: Cleve Cox MD on 02/08/2025 22:51:25
--- NOTE | ~2025-02-02 | XR_ITS ---
EXAMINATION: XR CHEST 1 VIEW HISTORY: ?aspiration COMPARISON: Comparison is made with the prior examination dated 02/08/2025. FINDINGS: A single AP portable view of the chest performed at 8:54 AM is submitted. There are low lung volumes. There are persistent patchy opacities in both lungs. There is no pleural effusion, pneumothorax, or pulmonary vascular congestion. The heart is normal in size. The bones are intact. XR/XR chest 1V IMPRESSION: Patchy opacities in both lungs without change. Electronically signed by: Rei Bello MD 02/09/2025 08:35 AM [facility] [place]
--- NOTE | ~2025-02-02 | MR_ITS ---
EXAMINATION: MR BRAIN WITHOUT CONTRAST CLINICAL INFORMATION: New onset seizures. COMPARISON: No prior MRI. CT head dated prior day. TECHNIQUE: MRI of the brain was obtained using routine sequences without contrast. Examination performed on a 1.5 Carla Siemens high-field unit. FINDINGS: There is no diffusion restriction. There is no intracranial hemorrhage, acute infarction, mass effect, or edema. No extra-axial collection. Ventricles, sulci, and cisterns are normal in size and configuration for patient age. Prominent cisterna magna, normal variant. No shift of midline. No abnormal hemosiderin deposition is identified. There are no significant white matter signal abnormalities. There is no evidence of hippocampal atrophy, or abnormal hippocampal signal. No evidence of heterotopic hernadez matter or cortical dysplasia identified. Midline structures appear normally formed. Partial empty sella noted. Posterior fossa structures appear normal. Cerebellar tonsils are appropriately located. Major flow voids are preserved within the skull base. The globes and orbital contents demonstrate no abnormalities. Paranasal sinuses are clear bilaterally. Nasal septum is midline without spur. There is a small amount of fluid in the right mastoid air cells. Mastoids and tympanic cavities are otherwise normally aerated. Extracranial soft tissues demonstrate no abnormalities. No suspicious bone marrow changes are evident. Atlantoaxial joint is normal. MR/MR head/brain wo con IMPRESSION: 1. No evidence of intracranial hemorrhage, acute infarction, mass effect, or edema. 2. No evidence of hippocampal atrophy or signal abnormality. No heterotopic hernadez matter or cortical dysplasia identified. Electronically signed by: Roland Sampson MD 02/09/2025 03:10 PM [facility] [place]
--- NOTE | ~2025-02-02 | XR_ITS ---
CLINICAL HISTORY: abdominal fullness 1 view abdomen Comparison: None provided Findings: Normally air-filled loops of bowel are demonstrated throughout the upper to mid abdomen. Minimal air visualized in the distal colon and rectum. No pneumoperitoneum or pneumatosis. No abnormal calcifications. No acute fractures. IMPRESSION: Bowel-gas pattern is within normal limits. This document has been electronically signed by: Gian Swanson MD on 02/08/2025 12:05:36
--- NOTE | 2025-02-02 16:50 | ECG_ITS ---
Test Reason : SOB Blood Pressure : */* mmHG Vent. Rate : 113 BPM Atrial Rate : 113 BPM P-R Int : 138 ms QRS Dur : 86 ms QT Int : 314 ms P-R-T Axes : 45 -37 54 degrees QTcB Int : 430 ms Sinus tachycardia Left axis deviation Abnormal ECG When compared with ECG of 03-Nov-2023 12:23, No significant change was found Referred By: Maggi Gonzalez Electronically Signed By: MARTHA JEFFREY
--- NOTE | 2025-02-02 16:54 | ED.GENADULT ---
[facility] - General Adult General Chief complaint: Dyspnea Stated complaint: not feeling well, cant breathe Time Seen by Provider: 02/02/25 16:49 Source: patient Mode of arrival: ambulatory Limitations: no limitations History of Present Illness ED Provider: Dr. Gonzalez HPI narrative: 40-year-old male history of tobacco use via smoking presented hospital today for evaluation of hypoxia. Patient was saturating at 70 % on room air. Not normally on oxygen. Patient is also noted to be febrile and tachycardic. Patient has no history of asthma COPD in the past. Stated that he has been feeling sick therefore he presents to the ER for evaluation. No chest pain Related Data Home Medications ?Medication ?Instructions ?Recorded ?Confirmed aripiprazole 20 mg tablet 20 mg PO BEDTIME 02/02/25 02/02/25 clonazepam 0.5 mg tablet 0.5 mg PO BID 02/02/25 gabapentin 800 mg tablet 800 mg PO TID 02/02/25 Previous Rx's ?Medication ?Instructions ?Recorded albuterol sulfate 90 mcg/actuation 1 inh inhalation QID PRN shortness 07/17/23 aerosol inhaler (Ventolin HFA) of breath or wheezing #8.5 grams albuterol sulfate 90 mcg/actuation 2 puff inhalation QID PRN 11/03/23 aerosol inhaler (Ventolin HFA) shortness of breath or wheezing #6.7 grams amoxicillin 875 mg-potassium 1 tab PO BID #14 tabs 11/03/23 clavulanate 125 mg tablet doxycycline hyclate 100 mg capsule 100 mg PO BID 7 days #14 caps 11/03/23 prednisone 20 mg tablet 40 mg (2 x 20 mg) PO DAILY 4 days 11/03/23 #8 tabs ondansetron 4 mg disintegrating 4 mg PO Q8H PRN nausea and 11/20/23 tablet vomiting #20 tabs clonidine HCl 0.2 mg tablet 0.2 mg PO BEDTIME #30 tabs 05/15/24 sertraline 100 mg tablet 200 mg (2 x 100 mg) PO QAM #60 tabs 09/17/24 Allergies Allergy/AdvReac Type Severity Reaction Status Date / Time No Known Allergies Allergy Verified 02/02/25 16:51 Review of Systems Review of Systems: Pertinent review of systems as mentioned in HPI. All other system otherwise negative. [facility] Past Medical History [facility] Narrative: Medical history as mentioned in HPI Medical History (Updated 02/02/25 @ 18:40 by Farideh Galo MD) [facility] use of drug Chronic lower back pain Surgical History No pertinent past surgical history Family History Family History Mother Mental health disorder Social History Social History Housing: Apartment Alcohol intake: never Patient Tobacco Use Status: Current everyday Tobacco user Tobacco use type: Cigarette Cigarette Packs Per Day: 0.5 Cigarettes Per Day: 7 Smoked in Last 30 Days: Yes e-Cigarette/Vaping Use: Former Use Second Hand Smoke Exposure: Yes Use of substances other than those prescribed or required for medical reasons: No Advance Directives: No Advance Directives Information Provided: No Do you have a plan to hurt others: No Plan service: No Current occupational status: employed 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 Cognitive needs: No Hearing needs: No Vision needs: No Physical Exam ED Exam Exam: General: Appears toxic, tachypneic Head: Normacephalic, atraumatic ENT: oral mucosa moist, neck supple, no tracheal deviation Cardiovascular: Tachycardic rate, regular rhythm, no murmurs, rubbing, gallops Respiratory: Crackles in the left side diminished lung sounds throughout Gastrointestinal: Soft, non distended, non tender, non guarding Extremities: No limb pain or swelling, no calf tenderness Neurological: Awake and alert, no facial droop noted Skin: Warm and dry Psychiatric: Appropriate mood and thoughts Vital Signs: Vital Signs - 24 hr 02/02/25 16:50 02/02/25 17:07 02/02/25 17:09 Temperature 100.6 F H Pulse Rate 123 H 120 H 122 H Respiratory Rate 33 H 22 H 20 Blood Pressure 114/57 L 93/53 L Pulse Oximetry 73 L 92 Oxygen Delivery Method Room Air High Flow Nasal Cannula Oxygen Flow Rate Fraction of Inspired Oxygen 55 02/02/25 17:31 02/02/25 17:45 02/02/25 17:55 Temperature 99.1 F Pulse Rate 108 H 116 H Respiratory Rate 24 H 22 H 21 H Blood Pressure 91/48 L 96/73 Pulse Oximetry 92 95 Oxygen Delivery Method High Flow Nasal Cannula BiPAP Oxygen Flow Rate 80 Fraction of Inspired Oxygen 02/02/25 18:14 02/02/25 18:19 Temperature 102.0 F H Pulse Rate 113 H 115 H Respiratory Rate 22 H 24 H Blood Pressure 101/52 L 99/40 L Pulse Oximetry 94 90 L Oxygen Delivery Method BiPAP BiPAP Oxygen Flow Rate 80 Fraction of Inspired Oxygen BMI result Body Mass Index 34.5 Medications Administered Generic Name Dose Route Start Last Admin Trade Name Freq PRN Reason Stop Dose Admin Enoxaparin Sodium 40 mg 02/02/25 18:30 02/02/25 18:45 Enoxaparin Sodium 40 Mg/0.4 Ml Syringe SUBCUT 40 mg Q24H SILVER Administration Norepinephrine Bitartrate 8 mg in 250 mls @ 0 mls/hr 02/02/25 18:30 02/02/25 19:27 Levophed IV 0.01 mcg/kg/min .Q0M SILVER 2.22 mls/hr Protocol Titration Per Protocol Discontinued Medications Generic Name Dose Route Start Last Admin Trade Name Freq PRN Reason Stop Dose Admin Acetaminophen 975 mg 02/02/25 16:49 02/02/25 17:03 Acetaminophen 325 Mg Tablet PO 02/02/25 16:50 975 mg ONCE ONE Administration Albuterol Sulfate 2.5 mg/ 0 mg 02/02/25 17:09 02/02/25 17:11 Albuterol/Ipratropium 3 ml INHALE 02/02/25 17:10 5 dose ONCE ONE Administration Sodium Chloride 1,000 mls @ 999 mls/hr 02/02/25 17:00 02/02/25 17:32 Ns IV 02/02/25 18:00 Infused .Q1H1M SILVER Infusion Ceftriaxone Sodium 2 gm/ 50 mls @ 100 mls/hr 02/02/25 16:53 02/02/25 17:34 Sodium Chloride IV 02/02/25 17:22 Infused ONCE ONE Infusion Vancomycin HCl 2,000 mg in 500 mls @ 250 mls/hr 02/02/25 17:14 02/02/25 18:27 Vancomycin/Ns IV 02/02/25 19:13 250 mls/hr ONCE ONE Administration Piperacillin Sod/Tazobactam 100 mls @ 200 mls/hr 02/02/25 17:14 02/02/25 18:19 Sod 4.5 gm/ Sodium Chloride IV 02/02/25 17:43 Infused ONCE ONE Infusion Sodium Chloride 3,558 mls @ 3,558 mls/hr 02/02/25 17:15 02/02/25 18:54 Ns 30 ml/kg infuse over 1 hr (3558 ml) 02/02/25 18:14 Infused IV Infusion .Q1H STA Medical Decision Making Medical Decision Making [facility] Narrative: 40-year-old male history of tobacco use disorder presented hospital today for shortness of breath and hypoxia. Patient isn't hypoxic respiratory failure. Patient will be placed on high-flow nasal cannula. We will plan to provide breathing treatment to the patient as well. Portable x-ray will be obtained. CBC CMP lactic acid blood culture and VBG will be obtained. Broad-spectrum antibiotic ceftriaxone azithromycin will be provided. High suspicion for pneumonia. COVID flu swab will be obtained as well. Continue to monitor the patient at this time. Patient does meet sepsis criteria. Assessment is sepsis alert will be called. Patient's O2 saturation did drop to admit 86. Patient is transitioned to BiPAP. No sign of leukocytosis however patient's lab work did show 36% bands. The patient does have elevated lactic acid. Patient meets criteria for sepsis at this time. We will plan to admit patient to ICU. Patient is requiring BiPAP at this time. IV vancomycin and IV Zosyn was initiated due to hypotension and significant sepsis. Patient has received 30 cc/kg IV fluid. Patient's blood pressure has improved after IV fluid hydration. Patient is admitted to ICU. Differential Diagnosis Differential Diagnoses: The differential diagnosis associated with the presentation includes URI, COVID, pneumonia, COPD, asthma, sepsis Consult Healthcare Provider Management of the patient was discussed with: Study Hall Supervisor (ICU) Lab Data [facility] Lab Attestation statement: I reviewed the patient's lab results. 02/02/25 17:01 02/02/25 17:01 Labs: Lab Results 02/02/25 02/02/25 02/02/25 Range/Units 17:01 17:02 17:07 WBC 6.8 (4.8-10.8) X10*3/uL RBC 4.50 L (4.60-5.80) X10*6/uL Hgb 11.9 L (14.0-18.0) g/dl Hct 36.8 L (42.0-52.0) % MCV 81.8 (80.0-98.0) fL MCH 26.4 L (27.0-33.0) pg MCHC 32.3 (31.0-36.0) g/dl RDW 14.1 (11.0-16.0) % Plt Count 236 (160-400) X10*3/uL MPV 8.7 L (9.4-12.4) fL Immature Gran % (Auto) Cancelled Neut % (Auto) Cancelled Lymph % (Auto) Cancelled [place] % (Auto) Cancelled Eos % (Auto) Cancelled Baso % (Auto) Cancelled Lymph # (Auto) Cancelled [place] # (Auto) Cancelled Eos # (Auto) Cancelled Baso # (Auto) Cancelled Abs Immat Gran (auto) Cancelled Absolute Neuts (auto) Cancelled Absolute Nucleated RBC 0.000 (0.0-0.012) X10*3/uL Nucleated RBC % (auto) 0.0 (0.0-0.2) /100WBC Neutrophils % (Manual) 54 (45-73) % Band Neutrophils % 36 H (3-5) % Lymphocytes % (Manual) 5 L (20-40) % Monocytes % (Manual) 5 (2-11) % Abs Neuts (Manual) 6.1 (2.0-8.3) X10*3/uL Lymphocytes # (Manual) 0.3 L (1.2-4.9) X10*3/uL Monocytes # (Manual) 0.3 (0.1-1.2) X10*3/uL Toxic Vacuolation PRESENT Dohle Bodies PRESENT Platelet Estimate NORMAL (NORMAL) Large Platelets PRESENT Giant Platelets PRESENT Plt Morphology Comment NOTED RBC Morphology NOTED Polychromasia 1+ (0-2) /OIF VBG pH 7.45 H (7.32-7.43) VBG pCO2 35 mmHg VBG pO2 75 mmHg VBG HCO3 25 (22-26) mmol/L VBG O2 Saturation 97.0 % VBG Base Excess 1.6 mmol/L Sodium 137 (135-145) mmol/L Potassium 4.1 (3.3-5.1) mmol/L Chloride 104 (96-108) mmol/L Carbon Dioxide 23 (22-29) mmol/L Anion Gap 14 (12-20) BUN 14 (9-16) mg/dL Creatinine 0.94 (0.5-1.4) mg/dL Estim Creat Clear Calc 142.3 Estimated GFR > 60 Random Glucose 179 H (60-115) mg/dL Lactic Acid 2.9 H* (0.5-2.0) mmol/L Calcium 8.6 (8.4-10.2) mg/dL Total Bilirubin 0.9 (0.0-1.0) mg/dL AST 52 H (5-37) U/L ALT 44 H (0-40) U/L Alkaline Phosphatase 65 (39-117) U/L Total Protein 7.3 (6.5-8.0) g/dL Albumin 3.9 (3.5-5.0) g/dL COVID-19 (JESS) Negative (Negative) COVID-19 Clin Com See Note Influenza Type A (SCOTT) Negative (Negative) Influenza Type B (SCOTT) Negative (Negative) Influenza A & B Note See Note Independent Interpretation I performed an independent interpretation of an: Plain X-Ray Radiology Impression Discussion of test interpretation with radiology: I have reviewed the radiologist's reading. Critical Care Time Critical Care Time Critical Care Time: Yes Total Critical Care Time: 38 Attestation: Time is exclusive of separately billable procedures. Time includes: direct patient care, patient reassessment, coordination of patient care, interpretation of data (laboratory data, pulse oximetry, arterial blood gases and chest xrays), review of patient's medical records, medical consultation and documentation of patient care. Procedures excluded from critical care time: central intravenous line placement and electrocardiography. Discharge Plan Discharge Clinical Impression: Pneumonia Qualifiers: Pneumonia type: due to unspecified organism Laterality: left Lung location: lower lobe of lung Qualified Code(s): J18.9 - Pneumonia, unspecified organism Sepsis Qualifiers: Sepsis type: sepsis due to unspecified organism Sepsis acute organ dysfunction status: with acute organ dysfunction Severe sepsis acute organ dysfunction type: acute respiratory failure Acute respiratory failure type: with hypoxia Severe sepsis shock status: unspecified Qualified Code(s): A41.9 - Sepsis, unspecified organism Respiratory failure Qualifiers: Chronicity: acute Respiratory failure complication: hypoxia Qualified Code(s): J96.01 - Acute respiratory failure with hypoxia Patient Disposition: Admitted As Inpatient Interventions: Admission Worksheet (ED) Last Done: 02/02/25 19:16 Discharge Date/Time: 02/02/25 19:16
[2025-02-02 17:11] LABS: Hematocrit 36.8 % (42.0-52.0); Hemoglobin 11.9 g/dl (14.0-18.0); Mean Corpuscular HGB Conc 32.3 g/dl (31.0-36.0); Mean Corpuscular Hemoglobin 26.4 pg (27.0-33.0); Mean Corpuscular Volume 81.8 fL (80.0-98.0); NRBC Abs Auto 0.000 X10*3/uL (0.0-0.012); NRBC Pct Auto 0.0 /100WBC (0.0-0.2); Platelet Count 236 X10*3/uL (160-400); Red Blood Count 4.50 X10*6/uL (4.60-5.80); White Blood Count 6.8 X10*3/uL (4.8-10.8)
[2025-02-02] MEDS: Albuterol Sulfate 2.5 MG, Albuterol/Iprat 2.5/0.5MG 3 ML 3 ML INHALE (17:11)
[2025-02-02 17:12] LABS: Venous Blood Gas Refer to POC result
[2025-02-02 17:14] LABS: VBG HCO3 25 mmol/L (22-26); VBG O2 % Saturation 97.0 %
[2025-02-02 17:25] LABS: COVID-19 Test Negative (Negative); IDNOW Serial# 55D5AD1C
[2025-02-02 17:26] LABS: IDNOW Serial# 6674DD1D; Influenza B2 Negative (Negative)
[2025-02-02 17:26] LABS: Alanine Aminotransferase 44 U/L (0-40); Albumin Level 3.9 g/dL (3.5-5.0); Alkaline Phosphatase 65 U/L (39-117); Anion Gap 14 (12-20); Aspartate Amino Transferase 52 U/L (5-37); Blood Urea Nitrogen 14 mg/dL (9-16); Calcium 8.6 mg/dL (8.4-10.2); Carbon Dioxide 23 mmol/L (22-29); Chloride 104 mmol/L (96-108); Creatinine Clr Calc Pharmacy 142.3; Estimated Glomerular Filt Rate > 60; Potassium 4.1 mmol/L (3.3-5.1); Sodium 137 mmol/L (135-145); Total Protein 7.3 g/dL (6.5-8.0)
--- NOTE | 2025-02-02 17:45 | PC.NURSE ---
pt's oxygen saturation is dropping on the high flow to 86-87% on 75/55%l fiot plan to put the pt on bipap pt changed over into bipap 16/8EPAP/80%oxygen and tolerating well sating 92% at this time
[2025-02-02 17:49] LABS: Neutrophils Percent Manual 54 % (45-73)
[2025-02-02 17:50] LABS: Band Neutrophils Percent 36 % (3-5); Lymphocytes Absolute Manual 0.3 X10*3/uL (1.2-4.9); Lymphocytes Percent Manual 5 % (20-40); Monocytes Absolute Manual 0.3 X10*3/uL (0.1-1.2); Monocytes Percent Manual 5 % (2-11); Neutrophils Absolute Manual 6.1 X10*3/uL (2.0-8.3)
[2025-02-02 17:51] LABS: Dohle Bodies PRESENT; Large Platelet PRESENT; Polychromasia 1+ (0-2) /OIF; RBC Morphology NOTED; Toxic Vacuolation PRESENT
--- NOTE | 2025-02-02 18:25 | PM.CCHP ---
History of Present Illness Date of Service: 02/02/25 <Farideh Galo MD - Last Filed: 02/03/25 07:56> Attending physician on admission: Farideh Galo <Farideh Galo MD - Last Filed: 02/03/25 07:56> Chief Complaint: Pneumonia <Farideh Galo MD - Last Filed: 02/03/25 07:56> Patient is a 40 Y M w/ tobacco use and prior pneumonia presenting to ED on 02/02 w/ dyspnea, found to be in acute hypoxic respiratory failure necessitating HFNC and hypotension; ED work-up suggestive of L pneumonia <Farideh Galo MD - Last Filed: 02/03/25 07:56> Review of Systems Review of Systems: Yes all other systems are reviewed and are negative <Farideh Galo MD - Last Filed: 02/03/25 07:56> PMFSH Past Medical History Medical History: 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 Chronic lower back pain <Farideh Galo MD - Last Filed: 02/03/25 07:56> Family History Family History: Family History Mother Mental health disorder <Farideh Galo MD - Last Filed: 02/03/25 07:56> Surgical History Surgical History: Surgical History No pertinent past surgical history <Farideh Galo MD - Last Filed: 02/03/25 07:56> Social History Social History: Social History Household Members: Family Housing: Unknown / Unable to assess Do you presently have visiting nurse or other home services: No Alcohol intake: never Patient Tobacco Use Status: Current everyday Tobacco user Tobacco use type: Cigarette Cigarette Packs Per Day: 0.5 Cigarettes Per Day: 7 Smoked in Last 30 Days: Yes e-Cigarette/Vaping Use: Former Use Second Hand Smoke Exposure: Yes Use of substances other than those prescribed or required for medical reasons: No Currently Displaying Signs/Symptoms of Drug Intoxication Withdrawal: No Advance Directives: No Advance Directives Information Provided: No Do you have a plan to hurt others: No Plan Recently lost weight without trying: Unsure How much weight loss: Unsure Nutrition Risks: On aspiration precautions Poor oral hygiene: No service: No Current occupational status: employed 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 Cognitive needs: No Hearing needs: No Vision needs: No <Farideh Galo MD - Last Filed: 02/03/25 07:56> Meds Allergies/Adverse reactions: Allergies Allergy/AdvReac Type Severity Reaction Status Date / Time No Known Allergies Allergy Verified 02/02/25 16:51 <Farideh Galo MD - Last Filed: 02/03/25 07:56> Active Medications: Current Medications Enoxaparin Sodium (Enoxaparin Sodium 40 Mg/0.4 Ml Syringe) 40 mg SUBCUT Q24H SILVER Vancomycin HCl (Vancomycin/Ns) 2,000 mg in 500 mls @ 250 mls/hr IV ONCE ONE Stop: 02/02/25 19:13 Norepinephrine Bitartrate (Levophed) 8 mg in 250 mls @ 0 mls/hr IV .Q0M SILVER; Protocol <Farideh Galo MD - Last Filed: 02/03/25 07:56> Home medications: Home Medications ?Medication ?Instructions ?Recorded ?Confirmed ?Last Taken ?Type aripiprazole 20 mg tablet 20 mg PO BEDTIME 02/02/25 02/02/25 Unknown History clonazepam 0.5 mg tablet 0.5 mg PO BID 02/02/25 Unknown History gabapentin 800 mg tablet 800 mg PO TID 02/02/25 Unknown History clonidine HCl 0.2 mg tablet 0.2 mg PO BEDTIME PRN Anxiety 02/03/25 Unknown History sertraline 100 mg tablet 200 mg PO DAILY 02/03/25 Unknown History <Farideh Galo MD - Last Filed: 02/03/25 07:56> Physical Exam Vital Signs: Vital Signs: Last Vital Signs Temp 99.1 F 02/02/25 17:31 Pulse 113 H 02/02/25 18:14 Resp 22 H 02/02/25 18:14 BP 101/52 L 02/02/25 18:14 Pulse Ox 94 02/02/25 18:14 O2 Del Method BiPAP 02/02/25 18:14 O2 Flow Rate 80 02/02/25 17:55 FiO2 55 02/02/25 17:07 BMI result Body Mass Index 34.5 <Farideh Galo MD - Last Filed: 02/03/25 07:56> Const: General: no acute distress and alert <Shalini Sahni NP - Last Filed: 02/03/25 05:52> Orientation/consciousness: patient oriented x3 (answering appropriately.) <Shalini Sahni NP - Last Filed: 02/03/25 05:52> HEENT: Head: Yes normocephalic and Yes atraumatic <Shalini Sahni NP - Last Filed: 02/03/25 05:52> General nose exam: Normal external nose present (Nares patent, septum midline, sinuses nontender bilaterally.) <Shalini Sahni NP - Last Filed: 02/03/25 05:52> Mouth: Normal oral and palatal mucosa present (No thrush, tongue in midline, mucosa moist.) <Shalini Sahni NP - Last Filed: 02/03/25 05:52> Throat: Yes other (No erythema, no exudate.) <Shalini Sahni NP - Last Filed: 02/03/25 05:52> Neck: Neck: Yes supple (no thyromegaly, trachea midline.) <Shalini Sahni NP - Last Filed: 02/03/25 05:52> Carotids: normal carotid upstroke <Shalini Sahni NP - Last Filed: 02/03/25 05:52> Resp: Auscultation: crackles on the left in the lower lung alcocer and 1/[address] up and diminished lung sounds diffuse <Shalini Sahni NP - Last Filed: 02/03/25 05:52> Cardio: Jugular venous distension: no JVD <Shalini Sahni NP - Last Filed: 02/03/25 05:52> Rate: regular rate <Shalini Sahni NP - Last Filed: 02/03/25 05:52> Rhythm: regular rhythm <Shalini Sahni NP - Last Filed: 02/03/25 05:52> Heart sounds: no gallops, no murmurs and no rubs <Shalini Sahni NP - Last Filed: 02/03/25 05:52> Peripheral pulses: Peripheral pulses 2+ throughout <Shalini Sahni NP - Last Filed: 02/03/25 05:52> GI: Palpation (GI): Soft to palpation (nondistended.) and nontender <Shalini Sahni NP - Last Filed: 02/03/25 05:52> Neuro: General: patient oriented x3 (answering appropriately.) <Shalini Sahni NP - Last Filed: 02/03/25 05:52> Extrem: General: Yes full ROM, Yes capillary refill normal and Yes no clubbing, cyanosis or edema <Shalini Sahni NP - Last Filed: 02/03/25 05:52> Psych: Affect: normal affect <Shalini Sahni NP - Last Filed: 02/03/25 05:52> Attitude: cooperative <Shalini Sahni NP - Last Filed: 02/03/25 05:52> Results Labs CBC and Chem 7: 02/03/25 04:52 02/03/25 04:52 <Farideh Galo MD - Last Filed: 02/03/25 07:56> Labs: Laboratory Results - last 24 hr 02/02/25 02/02/25 02/02/25 17:01 17:02 17:07 MCV 81.8 MCH 26.4 L MCHC 32.3 RDW 14.1 Plt Count 236 MPV 8.7 L Immature Gran % (Auto) Cancelled Neut % (Auto) Cancelled Lymph % (Auto) Cancelled [place] % (Auto) Cancelled Eos % (Auto) Cancelled Baso % (Auto) Cancelled Lymph # (Auto) Cancelled [place] # (Auto) Cancelled Eos # (Auto) Cancelled Baso # (Auto) Cancelled Abs Immat Gran (auto) Cancelled Absolute Neuts (auto) Cancelled Absolute Nucleated RBC 0.000 Nucleated RBC % (auto) 0.0 Neutrophils % (Manual) 54 Band Neutrophils % 36 H Lymphocytes % (Manual) 5 L Monocytes % (Manual) 5 Abs Neuts (Manual) 6.1 Lymphocytes # (Manual) 0.3 L Monocytes # (Manual) 0.3 Toxic Vacuolation PRESENT Dohle Bodies PRESENT Platelet Estimate NORMAL Large Platelets PRESENT Giant Platelets PRESENT Plt Morphology Comment NOTED RBC Morphology NOTED Polychromasia 1+ (0-2) VBG pH 7.45 H VBG pCO2 35 VBG pO2 75 VBG HCO3 25 VBG O2 Saturation 97.0 VBG Base Excess 1.6 Anion Gap 14 Estim Creat Clear Calc 142.3 Estimated GFR > 60 Random Glucose 179 H Lactic Acid 2.9 H* Calcium 8.6 Total Bilirubin 0.9 AST 52 H ALT 44 H Alkaline Phosphatase 65 Total Protein 7.3 Albumin 3.9 COVID-19 (JESS) Negative COVID-19 Clin Com See Note Influenza Type A (SCOTT) Negative Influenza Type B (SCOTT) Negative Influenza A & B Note See Note <Farideh Galo MD - Last Filed: 02/03/25 07:56> Assessment and Plan (1) Pneumonia: Qualifiers: Laterality: left Lung location: lower lobe of lung Pneumonia type: due to unspecified organism Qualified Code(s): J18.9 - Pneumonia, unspecified organism <Farideh Galo MD - Last Filed: 02/03/25 07:56> Status: Acute <Farideh Galo MD - Last Filed: 02/03/25 07:56> (2) Acute respiratory failure with hypoxia: Status: Acute <Farideh Galo MD - Last Filed: 02/03/25 07:56> Patient is a 40 Y M w/ tobacco use and prior pneumonia presenting to ED on 02/02 w/ dyspnea, found to be in acute hypoxic respiratory failure necessitating HFNC and hypotension; ED work-up suggestive of L pneumonia N: no acute issues CV: hypotension, c/f developing septic shock, norepinephrine gtt as needed R: pneumonia c/b acute hypoxic respiratory failure, HFNC, wean as tolerated GI: NPO while on high HFNC settings, otherwise advance as tolerated : no acute issues H: no acute issues; chemical DVT prophylaxis ID: c/f pneumonia, empiric vanc/zosyn, to follow-up BCx 02/02, MRSA swab E: no acute issues; to monitor hypo-/hyper-glycemia P: no acute issues <Farideh Galo MD - Last Filed: 02/03/25 07:56>
[2025-02-02] MEDS: vancomycin/NS 2,000 MG/500 ML PLAST..BAG 250 MG IV (18:27)
--- NOTE | 2025-02-02 18:37 | PHA.PROG ---
Admission Date/Time: February 02, 2025 18:21 Indication: EMPIRIC Weight in k.6 kg Adjusted body weight in Kg: Rough And Ready body weight in Kg: Obesity Dosing Indication % IBW: Serum Creatinine - Last 168 Hours 02/02/25 17:01 Creatinine 0.94 Estimated CrCl and GFR - Last 168 Hours 02/02/25 17:01 Estim Creat Clear Calc 142.3 Estimated GFR > 60 Vancomycin Loading Dose: 2000 MG Current Vancomycin Dosing Regimen:1500 MG Q 12 HOURS Vancomycin Monitoring using AUC goal of 400 - 600 range with trough as surrogate marker: Date and Time for next Vancomycin Level to be drawn:02/04/25 0400 Pharmacist Comments on Vancomycin Plan: Vancomycin dosing will take advantage of [employer] as a clinical decision support tool that uses Bayesian modeling to calculate individual patient's pharmacokinetic parameters and forecast the patient's drug concentration time course with the target goal AUC 24 range of 400 - 600 mg/L/hr.
--- NOTE | 2025-02-02 18:55 | PC.NURSE ---
moved the pt to ICU
[2025-02-02 19:06] LABS: Reflex Lactate? Lactic Acid Added
[2025-02-02 19:49] LABS: ~Lactic Acid-LAB USE ONLY 2.1 mmol/L (0.5-2.0)
[2025-02-02] MEDS: Albuterol/Iprat 2.5/0.5MG 3 ML AMPUL.NEB INHALE (20:22)
[2025-02-02 21:22] LABS: Reflex Lactate? 2 Y
--- NOTE | 2025-02-02 21:57 | W.PM.CCHP ---
Procedures Date of Service Date of Service: 02/02/25 Intubation Intubation Comments: The patient developed progressive respiratory fatigue, lethargy, and worsening hypoxemia, despite BiPAP 100% FiO2. Voluminous amount tenacious brown sputum was present in the oropharanyx prior to intubation requiring suction to visualize the glottis. Immediately on intubation, additional hi secretions were removed via the in-line catheter. SpO2 pola to low 90's after suctioning. The ETT was advanced from 25cm to 28 cm at the upper lip d/t position noted on CXR. Consent for Procedure: Emergent-no informed consent obtained Time out performed: Yes Sedative: propofol Mg given: 300 Paralytic: rocuronium Mg given: 50 Laryngoscope: fiber optic video scope ET tube size: 7.5 ET tube uncuffed: No Tube secured depth (cm): 28 Tube secured location: lips Tube placement confirmation: visualized tube passing through cords, equal breath sounds bilaterally, no breath sounds over epigastrium and confirmation by capnometry Patient tolerated procedure: well and no complications Intubation complications: none
[2025-02-02] MEDS: fentaNYL citrate/NS 1,000 MCG/100 ML PLAST..BAG 5 MCG IVCONT (22:00)
[2025-02-02] MEDS: Chlorhexidine Gluc Oral Rinse 15 ML MOUTHWASH BUCCAL (22:59)
[2025-02-02 23:04] LABS: ~Lactic Acid-LAB USE ONLY 2.2 mmol/L (0.5-2.0)
[2025-02-02 23:05] LABS: ABG HCO3 23 mmol/L (22-26); ABG O2 % Saturation 96.0 %
[2025-02-02 23:09] LABS: Cannabinoid Screen Urine Not Detected (Not Detect)
[2025-02-02] MEDS: Lactated Ringers 1,000 ML 999 ML IV (23:17)
[2025-02-02 23:33] LABS: ABG Refer to POC result
[2025-02-03] VITALS (45 sets, daily range): BP systolic 82–141; BP diastolic 34–84; PULSE 70–86; RESP 19–21; TEMP 34.9–38; O2SAT 90–98; BMI 33.6
[2025-02-03] MEDS: 0.9 % Sodium Chloride Flush 3 ML SYRINGE IVFLUSH ×4 (00:04→23:03)
[2025-02-03 05:03] LABS: VBG HCO3 22 mmol/L (22-26); VBG O2 % Saturation 95.0 %; Venous Blood Gas Refer to POC result
[2025-02-03 05:48] LABS: Albumin Level 3.1 g/dL (3.5-5.0); Anion Gap 14 (12-20); Blood Urea Nitrogen 12 mg/dL (9-16); Calcium 8.1 mg/dL (8.4-10.2); Carbon Dioxide 23 mmol/L (22-29); Chloride 112 mmol/L (96-108); Creatinine Clr Calc Pharmacy 171.5; Estimated Glomerular Filt Rate > 60; Magnesium 1.7 mg/dL (1.6-2.6); Potassium 3.9 mmol/L (3.3-5.1); Sodium 145 mmol/L (135-145)
[2025-02-03 05:49] LABS: Hematocrit 31.8 % (42.0-52.0); Hemoglobin 10.4 g/dl (14.0-18.0); Mean Corpuscular HGB Conc 32.7 g/dl (31.0-36.0); Mean Corpuscular Hemoglobin 26.6 pg (27.0-33.0); Mean Corpuscular Volume 81.3 fL (80.0-98.0); NRBC Abs Auto 0.000 X10*3/uL (0.0-0.012); NRBC Pct Auto 0.0 /100WBC (0.0-0.2); Platelet Count 210 X10*3/uL (160-400); Red Blood Count 3.91 X10*6/uL (4.60-5.80); White Blood Count 9.0 X10*3/uL (4.8-10.8)
[2025-02-03 06:07] LABS: Band Neutrophils Percent 29 % (3-5); Basophils Abs Manual 0.1 X10*3/uL (0.0-0.2); Basophils Percent Manual 1 % (0-2); Eosinophils Absolute Manual 0.1 X10*3/uL (0.0-0.4); Eosinophils Percent Manual 1 % (0-4); Lymphocytes Absolute Manual 0.6 X10*3/uL (1.2-4.9); Lymphocytes Percent Manual 7 % (20-40); Monocytes Absolute Manual 0.5 X10*3/uL (0.1-1.2); Monocytes Percent Manual 6 % (2-11); Neutrophils Absolute Manual 7.7 X10*3/uL (2.0-8.3); Neutrophils Percent Manual 56 % (45-73)
[2025-02-03 06:10] LABS: RBC Morphology NOTED
[2025-02-03 06:11] LABS: Burr Cells 1+ (0-2) /OIF; Dohle Bodies PRESENT; Large Platelet PRESENT; Ovalocytes 1+ (5-14) /OIF; Toxic Vacuolation PRESENT
--- NOTE | 2025-02-03 06:12 | PC.NURSE ---
Pt on Bipap 100% FiO2, becoming increasingly lethargic. Approx 2129 - decision to intubate by FLORENCIO Sahni. Propofol, Fentanyl, and Rocuronium administered for RSI - see JUN. Propofol gtt?administered and infusing per JUN. ETT #7.5, 26 cm?@ lip. Cxr completed. ETT advanced to 28 cm?@ lip per RT. On AC settings - see vent assessment. Suctioned for large amounts of thick hi secretions - sputum sample sent. SR on tele, HR 70-80s. MAP > 65, Levophed titrated per JUN.? OGT placed, 58 cm?@ lip. Jones placed per FLORENCIO Sahni, draining clear yellow urine. Protective foam placed to coccyx. Skin intact. CHG bath/oral care provided. Repositioned Q2H. Family updated.?
[2025-02-03] MEDS: Potassium Phosphate/NS 15 MMOL/250 ML PLAST..BAG 62.5 MMOL IV (07:59)
[2025-02-03] MEDS: Chlorhexidine Gluc Oral Rinse 15 ML MOUTHWASH BUCCAL ×3 (08:00→20:51)
--- NOTE | 2025-02-03 08:07 | PM.CCPN ---
Subjective Subjective Date of Service: 02/03/25 Interval History: admitted ICU 02/02 PM, persistent and worsening acute hypoxic respiratory failure necessitating intubation; ongoing critical and guarded clinical status Critical Care Time (minutes): 60 Physical Exam Vital Signs: Vital Signs: Last Vital Signs Temp 99.7 F 02/03/25 07:00 Pulse 76 02/03/25 07:00 Resp 20 02/03/25 07:00 BP 120/48 L 02/03/25 07:00 Pulse Ox 96 02/03/25 07:00 O2 Del Method Mechanical Ventil ation 02/03/25 07:00 O2 Flow Rate 80 02/02/25 18:55 FiO2 90 02/03/25 07:52 BMI result Body Mass Index 33.6 Const: Other: intubated, sedated; no appreciable spontaneous movements General: no acute distress and well developed HEENT: Head: Yes normal to inspection, Yes normocephalic and Yes atraumatic Eyes: General: appearance normal, both eyes and all related structures Neck: Neck: Yes normal visual inspection, Yes full ROM, Yes no meningeal signs, Yes trachea midline and Yes supple Resp: Other: appreciable rales and rhonchi L lung alcocer; no appreciable overt wheezing Effort & Inspection: normal respiratory effort Cardio: Rate: regular rate Rhythm: regular rhythm GI: Inspection: Yes normal to inspection, No Abdominal wall edema and No distended Palpation (GI): Soft to palpation, not firm, nontender, no guarding and not rigid Skin: General skin exam: no rashes or lesions noted Neuro: General: tone normal and no meningeal signs Extrem: General: Yes normal to inspection, Yes full ROM, Yes capillary refill normal and Yes no clubbing, cyanosis or edema Psych: Other: unable to assess Objective Data Labs 02/03/25 04:52 02/03/25 04:52 Labs: Laboratory Results - last 24 hr 02/02/25 02/02/25 02/02/25 17:01 17:02 17:07 WBC 6.8 RBC 4.50 L Hgb 11.9 L Hct 36.8 L MCV 81.8 MCH 26.4 L MCHC 32.3 RDW 14.1 Plt Count 236 MPV 8.7 L Immature Gran % (Auto) Cancelled Neut % (Auto) Cancelled Lymph % (Auto) Cancelled [place] % (Auto) Cancelled Eos % (Auto) Cancelled Baso % (Auto) Cancelled Lymph # (Auto) Cancelled [place] # (Auto) Cancelled Eos # (Auto) Cancelled Baso # (Auto) Cancelled Abs Immat Gran (auto) Cancelled Absolute Neuts (auto) Cancelled Absolute Nucleated RBC 0.000 Nucleated RBC % (auto) 0.0 Neutrophils % (Manual) 54 Band Neutrophils % 36 H Lymphocytes % (Manual) 5 L Monocytes % (Manual) 5 Eosinophils % (Manual) Basophils % (Manual) Abs Neuts (Manual) 6.1 Lymphocytes # (Manual) 0.3 L Monocytes # (Manual) 0.3 Eosinophils # (Manual) Basophils # (Manual) Toxic Vacuolation PRESENT Dohle Bodies PRESENT Platelet Estimate NORMAL Large Platelets PRESENT Giant Platelets PRESENT Plt Morphology Comment NOTED RBC Morphology NOTED Polychromasia 1+ (0-2) Ovalocytes [place] Cells O2 Saturation ABG pH at Pt Temp ABG pCO2 at Pt Temp ABG pO2 at Pt Temp ABG HCO3 ABG Base Excess (Actual) VBG pH 7.45 H VBG pCO2 35 VBG pO2 75 VBG HCO3 25 VBG O2 Saturation 97.0 VBG Base Excess 1.6 Sodium 137 Potassium 4.1 Chloride 104 Carbon Dioxide 23 Anion Gap 14 BUN 14 Creatinine 0.94 Estim Creat Clear Calc 142.3 Estimated GFR > 60 Random Glucose 179 H Lactic Acid 2.9 H* Lactic Acid F/U @ 2Hr Lactic Acid F/U @ 4Hr Calcium 8.6 Phosphorus Magnesium Total Bilirubin 0.9 AST 52 H ALT 44 H Alkaline Phosphatase 65 Total Protein 7.3 Albumin 3.9 Urine Opiates Screen Ur Buprenorphine Scrn Ur Oxycodone Screen Urine Methadone Screen Urine Fentanyl Screen Ur Barbiturates Screen Ur Phencyclidine Scrn Ur Amphetamines Screen U Benzodiazepines Scrn Urine Cocaine Screen U Marijuana (THC) Screen COVID-19 (JESS) Negative COVID-19 Clin Com See Note Influenza Type A (SCOTT) Negative Influenza Type B (SCOTT) Negative Influenza A & B Note See Note 02/02/25 02/02/25 02/02/25 19:17 22:39 22:50 WBC RBC Hgb Hct MCV MCH MCHC RDW Plt Count MPV Immature Gran % (Auto) Neut % (Auto) Lymph % (Auto) [place] % (Auto) Eos % (Auto) Baso % (Auto) Lymph # (Auto) [place] # (Auto) Eos # (Auto) Baso # (Auto) Abs Immat Gran (auto) Absolute Neuts (auto) Absolute Nucleated RBC Nucleated RBC % (auto) Neutrophils % (Manual) Band Neutrophils % Lymphocytes % (Manual) Monocytes % (Manual) Eosinophils % (Manual) Basophils % (Manual) Abs Neuts (Manual) Lymphocytes # (Manual) Monocytes # (Manual) Eosinophils # (Manual) Basophils # (Manual) Toxic Vacuolation Dohle Bodies Platelet Estimate Large Platelets Giant Platelets Plt Morphology Comment RBC Morphology Polychromasia Ovalocytes [place] Cells O2 Saturation ABG pH at Pt Temp ABG pCO2 at Pt Temp ABG pO2 at Pt Temp ABG HCO3 ABG Base Excess (Actual) VBG pH VBG pCO2 VBG pO2 VBG HCO3 VBG O2 Saturation VBG Base Excess Sodium Potassium Chloride Carbon Dioxide Anion Gap BUN Creatinine Estim Creat Clear Calc Estimated GFR Random Glucose Lactic Acid Lactic Acid F/U @ 2Hr 2.1 H* Lactic Acid F/U @ 4Hr 2.2 H* Calcium Phosphorus Magnesium Total Bilirubin AST ALT Alkaline Phosphatase Total Protein Albumin Urine Opiates Screen Not Detected Ur Buprenorphine Scrn Not Detected Ur Oxycodone Screen Not Detected Urine Methadone Screen Positive H Urine Fentanyl Screen POSITIVE H Ur Barbiturates Screen Not Detected Ur Phencyclidine Scrn Not Detected Ur Amphetamines Screen Not Detected U Benzodiazepines Scrn POSITIVE H Urine Cocaine Screen POSITIVE H U Marijuana (THC) Screen Not Detected COVID-19 (JESS) COVID-19 Clin Com Influenza Type A (SCOTT) Influenza Type B (SCOTT) Influenza A & B Note 02/02/25 02/03/25 02/03/25 23:00 04:52 04:59 WBC 9.0 RBC 3.91 L Hgb 10.4 L Hct 31.8 L MCV 81.3 MCH 26.6 L MCHC 32.7 RDW 14.4 Plt Count 210 MPV 9.0 L Immature Gran % (Auto) Cancelled Neut % (Auto) Cancelled Lymph % (Auto) Cancelled [place] % (Auto) Cancelled Eos % (Auto) Cancelled Baso % (Auto) Cancelled Lymph # (Auto) Cancelled [place] # (Auto) Cancelled Eos # (Auto) Cancelled Baso # (Auto) Cancelled Abs Immat Gran (auto) Cancelled Absolute Neuts (auto) Cancelled Absolute Nucleated RBC 0.000 Nucleated RBC % (auto) 0.0 Neutrophils % (Manual) 56 Band Neutrophils % 29 H Lymphocytes % (Manual) 7 L Monocytes % (Manual) 6 Eosinophils % (Manual) 1 Basophils % (Manual) 1 Abs Neuts (Manual) 7.7 Lymphocytes # (Manual) 0.6 L Monocytes # (Manual) 0.5 Eosinophils # (Manual) 0.1 Basophils # (Manual) 0.1 Toxic Vacuolation PRESENT Dohle Bodies PRESENT Platelet Estimate NORMAL Large Platelets PRESENT Giant Platelets Plt Morphology Comment NOTED RBC Morphology NOTED Polychromasia Ovalocytes 1+ (5-14) [place] Cells 1+ (0-2) O2 Saturation 96.0 ABG pH at Pt Temp 7.36 ABG pCO2 at Pt Temp 40 ABG pO2 at Pt Temp 81 L ABG HCO3 23 ABG Base Excess (Actual) -2.1 VBG pH 7.43 VBG pCO2 33 VBG pO2 72 VBG HCO3 22 VBG O2 Saturation 95.0 VBG Base Excess -0.6 Sodium 145 Potassium 3.9 Chloride 112 H Carbon Dioxide 23 Anion Gap 14 BUN 12 Creatinine 0.77 Estim Creat Clear Calc 171.5 Estimated GFR > 60 Random Glucose 131 H Lactic Acid Lactic Acid F/U @ 2Hr Lactic Acid F/U @ 4Hr Calcium 8.1 L Phosphorus 2.3 L Magnesium 1.7 Total Bilirubin AST ALT Alkaline Phosphatase Total Protein Albumin 3.1 L Urine Opiates Screen Ur Buprenorphine Scrn Ur Oxycodone Screen Urine Methadone Screen Urine Fentanyl Screen Ur Barbiturates Screen Ur Phencyclidine Scrn Ur Amphetamines Screen U Benzodiazepines Scrn Urine Cocaine Screen U Marijuana (THC) Screen COVID-19 (JESS) COVID-19 Clin Com Influenza Type A (SCOTT) Influenza Type B (SCOTT) Influenza A & B Note Progress Note: A&P Assessment and plan (1) Acute respiratory failure with hypoxia: Status: Acute (2) Pneumonia: Status: Acute Plan Patient is a 40 Y M w/ polysubstance use and prior pneumonia presenting to ED on 02/02 w/ dyspnea, found to be in acute hypoxic respiratory failure necessitating HFNC, and hypotension; ED work-up suggestive of L pneumonia; ICU course c/b worsening acute hypoxic respiratory failure, intubated 02/02 PM N: intubated, sedated w/ propofol, fentanyl gtts CV: hypotension, likely d/t sedation, norepinephrine gtt, wean as tolerated R: pneumonia c/b acute hypoxic respiratory failure, intubated 02/02 PM, wean as tolerated GI: NPO, consider tube feeds : no acute issues H: no acute issues; chemical DVT prophylaxis ID: c/f pneumonia, empiric vanc/zosyn, to follow-up BCx 02/02, MRSA swab E: no acute issues; to monitor hypo-/hyper-glycemia P: no acute issues S: [facility] Quality Stroke Does the patient have a stroke diagnosis?: No VTE Prior VTE?: No VTE Risk Level:: Medical - moderate - high VTE Device Contraindication: N/A - Device Ordered VTE Drug Contraindication: N/A - Med Ordered
[2025-02-03] MEDS: Calcium Gluconate/NaCl,Iso-Osm 1 GM/50 ML PLAST..BAG IV (08:41)
--- NOTE | 2025-02-03 09:15 | MHC.CM.PN ---
Pt intubated and unable to provide information: Pt's brother in to visit and discussed care issues w/provider. Pt resides w/significant other and is independent with all care needs and has no services. No HCP on file. D/C planning is ongoing at this time - pt would benefit from CARE team eval d/t + tox screen on admission. CM to follow
--- NOTE | 2025-02-03 09:53 | PHA.MEDREC ---
Pharmacy Consult ? Medication Reconciliation Pharmacy has completed the medication reconciliation.Med rec complete, spoke to patients , she was able to confirm all medications except she was unsure about the sertraline if he was still actually taking it. Methadone dose will need to be confirmed with the clinic he attends
--- NOTE | 2025-02-03 10:06 | MHC.CLN ---
PT IS INTUBATED AND SEDATED DISCUSSED WITH PROVIDER-PLAN TO START TF REVIEWED LABS RECOMMEND TF VITAL 1.2 AF AT MAX GOAL RATE 45ML/HR WITH 240ML FREE WATER FLUSHES Q 4 HRS TO PROVIDE 1296KCALS (2212KCALS WITH SEDATION; 23KCALS/KG), 81G PROTEIN, 2316ML TOTAL FREE WATER FROM FORMULA AND FLUSHES (24ML/KG) MONITOR TOLERANCE AND LYTES SEE FULL ASSESSMENT
[2025-02-03] MEDS: Albumin Human 25 % 50 ML 100 ML IV (10:13)
[2025-02-03 10:56] LABS: MRSA Nasal PCR POSITIVE (Negative); SA Nasal PCR POSITIVE (Negative)
[2025-02-03 12:06] LABS: Chlamydia pneumoniae PCR Not Detected (Not Detect.); Coronavirus 229E PCR Not Detected (Not Detect.); Coronavirus HKU1 PCR Not Detected (Not Detect.); Coronavirus NL63 PCR Not Detected (Not Detect.); Coronavirus OC43 PCR Not Detected (Not Detect.); RSV PCR Not Detected (Not Detect.); Rhino/Enterovirus PCR Not Detected (Not Detect.)
[2025-02-03 12:44] LABS: Influenza A H1 PCR Not Detected (Not Detect.); Influenza A H1-2009 PCR Not Detected (Not Detect.); Influenza A H3 PCR Not Detected (Not Detect.); SARS-CoV-2 PCR Not Detected (Not Detect.)
[2025-02-03] MEDS: fentaNYL citrate/NS 1,000 MCG/100 ML PLAST..BAG 5 MCG IVCONT (13:34)
--- NOTE | 2025-02-03 14:37 | HO.WOUND ---
Wound Consult: Initial 40 yr [place] [facility] [place] See progress notes and H&P for detailed history. Wound consult placed for left forearm. Patient intubated/sedated in the ICU. patient with history of polysubstance use. Left forearm Etiology: unclear etiology - superficial moist red base , abrasion vs skin tear vs MARSI Measurements: 0.7cm x 1.2cm x 0.1cm Wound Bed: moist red Drainage / Odor: scant serou Edges: ? open Angie wound: ? No Induration, Fluctuance or Warmth noted Pain: none Goals of Treatment: ? moist healing with xeroform/foam Recommendations: 1. Turn and Reposition every 2 hours and as needed for patient comfort. Use pillows or wedges to support off loading positions. 2. Off Load all bony prominences with use of pillows and heel boots if needed. Apply Preventative foams where needed. 3. Monitor for incontinence and moisture control, use barrier creams when needed for prevention and treatment. 4. Provide adequate and supplemental nutrition. 5. Order or Continue low air loss mattress. 6. When applicable maintain blood glucose levels per Providers order. Left forearm: cleanse with normal saline, apply xeroform, cover with foam, change daily and PRN Re-consult wound care Nurse for wound deterioration or wound changes.
--- NOTE | 2025-02-03 18:20 | PC.NURSE ---
Assumed care @ 0700? Neuro/Resp: Sedated/intubated, on? propofol and fentanyl gtt. does not open eyes, does not follow commands,?Flaccid extremities (passive ROM performed)? Cardiac: Sinus Rhythm on tele, on Levophed gtt - see MAR, MAP goal >65. GI: unknown LBM, +bowel sounds, OGT in place, Tolerating TF w/o signs of intolerance.? : Jones in place, patent /draining. Skin: see skin assessment (repositioning maintained)? Infectious: IV antibiotics? Lines: peripheral IVs
--- NOTE | 2025-02-03 18:24 | PC.NURSE ---
Assumed care @ 0700? Neuro/Resp: Sedated/intubated,? does not open eyes, does not follow commands,? CROOKS Occasionally.? (passive ROM performed).? Cardiac: Sinus Rhythm- Tachy, MAP goal >65. GI: unknown LBM, +bowel sounds, OGT in place, tolerating TF w/o signs of intolerance.? : Jones in place, patent /draining. Skin: intact (repositioning maintained)? Infectious: IV antibiotics? Lines: peripheral IVs
[2025-02-04] VITALS (33 sets, daily range): BP systolic 100–136; BP diastolic 47–82; PULSE 61–101; RESP 8–24; TEMP 34.5–38.3; O2SAT 88–97; BMI 33.3
[2025-02-04 05:55] LABS: VBG HCO3 24 mmol/L (22-26); VBG O2 % Saturation 83.0 %
[2025-02-04 06:18] LABS: MANUAL DIFF FLAG NO
[2025-02-04 06:20] LABS: Hematocrit 31.1 % (42.0-52.0); Hemoglobin 10.1 g/dl (14.0-18.0); Imm Gran Abs Auto 0.15 X10*3/uL (0.00-0.03); Imm Gran Pct Auto 1.5 % (0.0-0.4); Lymphocytes Absolute Auto 1.1 X10*3/uL (1.2-4.9); Mean Corpuscular HGB Conc 32.5 g/dl (31.0-36.0); Mean Corpuscular Hemoglobin 26.6 pg (27.0-33.0); Mean Corpuscular Volume 82.1 fL (80.0-98.0); NRBC Abs Auto 0.000 X10*3/uL (0.0-0.012); NRBC Pct Auto 0.0 /100WBC (0.0-0.2); Platelet Count 232 X10*3/uL (160-400); Red Blood Count 3.79 X10*6/uL (4.60-5.80); White Blood Count 9.9 X10*3/uL (4.8-10.8)
[2025-02-04 06:32] LABS: Albumin Level 2.9 g/dL (3.5-5.0)
[2025-02-04 06:44] LABS: Anion Gap 13 (12-20); Blood Urea Nitrogen 10 mg/dL (9-16); Calcium 8.4 mg/dL (8.4-10.2); Carbon Dioxide 23 mmol/L (22-29); Chloride 110 mmol/L (96-108); Creatinine Clr Calc Pharmacy 175.2; Estimated Glomerular Filt Rate > 60; Magnesium 1.9 mg/dL (1.6-2.6); Potassium 3.9 mmol/L (3.3-5.1); Sodium 142 mmol/L (135-145)
[2025-02-04 06:51] LABS: Venous Blood Gas Refer to POC result
--- NOTE | 2025-02-04 06:56 | HE.PHANOTE ---
RE: VANCO DOSING Trough came back as 10.2 mg/L, renal function is improving. Dose increased to 1250 mg q8h, next trough is scheduled for 02/04/25 @2100.
--- NOTE | 2025-02-04 07:40 | P.PNCC_ITS ---
Subjective Subjective Date of Service: 02/04/25 Interval History: no significant overnight events; persistent severe acute hypoxic respiratory failure/ARDS, critical and guarded clinical status Critical Care Time (minutes): 60 Physical Exam 2 Vital Signs: Vital Signs: Last Vital Signs Temp 100.6 F H 02/04/25 05:50 Pulse 87 02/04/25 05:50 Resp 24 H 02/04/25 05:50 BP 115/57 L 02/04/25 05:50 Pulse Ox 89 L 02/04/25 05:50 O2 Del Method Mechanical Ventil ation 02/04/25 05:50 O2 Flow Rate 80 02/02/25 18:55 FiO2 100 02/04/25 05:50 BMI result Body Mass Index 33.3 Const: Other: intubated, sedated; appreciable spontaneous, non-purposeful movements General: no acute distress, well developed and Physically active HEENT: Head: Yes normal to inspection, Yes normocephalic and Yes atraumatic Eyes: General: appearance normal, both eyes and all related structures Neck: Neck: Yes normal visual inspection, Yes full ROM, Yes no meningeal signs, Yes trachea midline and Yes supple Chest: Chest palpation & inspection: normal inspection of the chest Resp: Other: appreciable diffuse rhonchi, some appreciable wheezing; no appreciable overt rales Cardio: Rate: regular rate Rhythm: regular rhythm GI: Inspection: Yes normal to inspection, No Abdominal wall edema and No distended Palpation (GI): Soft to palpation, not firm, nontender, no guarding and not rigid Skin: General skin exam: no rashes or lesions noted Neuro: General: tone normal, moves all extremities and no meningeal signs Extrem: Other: appreciable trace pitting edema to bilateral shins General: Yes normal to inspection, Yes full ROM and Yes capillary refill normal Psych: Other: unable to assess Objective Data Labs 02/04/25 05:52 02/04/25 05:53 Labs: Laboratory Results - last 24 hr 02/02/25 02/03/25 02/04/25 18:38 10:30 05:51 WBC RBC Hgb Hct MCV MCH MCHC RDW Plt Count MPV Immature Gran % (Auto) Neut % (Auto) Lymph % (Auto) [place] % (Auto) Eos % (Auto) Baso % (Auto) Lymph # (Auto) [place] # (Auto) Eos # (Auto) Baso # (Auto) Abs Immat Gran (auto) Absolute Neuts (auto) Absolute Nucleated RBC Nucleated RBC % (auto) VBG pH 7.55 H VBG pCO2 27 VBG pO2 48 VBG HCO3 24 VBG O2 Saturation 83.0 VBG Base Excess 3.5 Sodium Potassium Chloride Carbon Dioxide Anion Gap BUN Creatinine Estim Creat Clear Calc Estimated GFR Random Glucose Calcium Phosphorus Magnesium Albumin 2.9 L Nasal Screen MRSA (PCR) POSITIVE A Nasal S. aureus Screen POSITIVE A Nasal MRSA/S.aureus Interp SEE NOTE Vancomycin Trough Respiratory Panel [place] See Note Adenovirus (Rapid PCR) Not Detected B.pert (TEM-PCR) Not Detected B.parapertussis DNA PCR Not Detected C. pneumoniae DNA (PCR) Not Detected Coronavirus OC43 (PCR) Not Detected Coronavirus HKU1 (PCR) Not Detected Coronavirus 229E (PCR) Not Detected Coronavirus NL63 (PCR) Not Detected Human Metapneumovir PCR Not Detected Influenza A (RT-PCR) Not Detected Influenza A (H1) PCR Not Detected Influ A (H1/09) PCR Not Detected Influenza A (H3) PCR Not Detected Influenza B (RT-PCR) Not Detected M. pneumoniae (PCR) Not Detected Parainfluenza 1 (PCR) Not Detected Parainfluenza 2 (PCR) Not Detected Parainfluenza 3 (PCR) Not Detected Parainfluenza 4 (PCR) Not Detected RSV (PCR) Not Detected Entero/Rhino (PCR) Not Detected SARS-CoV-2 RNA (RT-PCR) Not Detected 02/04/25 02/04/25 05:52 05:53 WBC 9.9 RBC 3.79 L Hgb 10.1 L Hct 31.1 L MCV 82.1 MCH 26.6 L MCHC 32.5 RDW 14.6 Plt Count 232 MPV 9.4 Immature Gran % (Auto) 1.5 H Neut % (Auto) 77.2 H Lymph % (Auto) 11.3 L [place] % (Auto) 5.7 Eos % (Auto) 3.7 Baso % (Auto) 0.6 Lymph # (Auto) 1.1 L [place] # (Auto) 0.6 Eos # (Auto) 0.4 Baso # (Auto) 0.1 Abs Immat Gran (auto) 0.15 H Absolute Neuts (auto) 7.6 Absolute Nucleated RBC 0.000 Nucleated RBC % (auto) 0.0 VBG pH VBG pCO2 VBG pO2 VBG HCO3 VBG O2 Saturation VBG Base Excess Sodium 142 Potassium 3.9 Chloride 110 H Carbon Dioxide 23 Anion Gap 13 BUN 10 Creatinine 0.75 Estim Creat Clear Calc 175.2 Estimated GFR > 60 Random Glucose 104 Calcium 8.4 Phosphorus 3.4 Magnesium 1.9 Albumin Nasal Screen MRSA (PCR) Nasal S. aureus Screen Nasal MRSA/S.aureus Interp Vancomycin Trough 10.2 Respiratory Panel [place] Adenovirus (Rapid PCR) B.pert (TEM-PCR) B.parapertussis DNA PCR C. pneumoniae DNA (PCR) Coronavirus OC43 (PCR) Coronavirus HKU1 (PCR) Coronavirus 229E (PCR) Coronavirus NL63 (PCR) Human Metapneumovir PCR Influenza A (RT-PCR) Influenza A (H1) PCR Influ A (H1/09) PCR Influenza A (H3) PCR Influenza B (RT-PCR) M. pneumoniae (PCR) Parainfluenza 1 (PCR) Parainfluenza 2 (PCR) Parainfluenza 3 (PCR) Parainfluenza 4 (PCR) RSV (PCR) Entero/Rhino (PCR) SARS-CoV-2 RNA (RT-PCR) Microbiology Microbiology Results: Microbiology 02/02/25 17:01 Blood - Venous Blood Culture - Preliminary No growth after 24 hours. 02/02/25 17:01 Blood - Venous Blood Culture - Preliminary No growth after 24 hours. 02/02/25 21:55 Sputum - Suctioned Gram Stain - Final Progress Note: A&P Assessment and plan (1) ARDS (adult respiratory distress syndrome): Status: Acute (2) Pneumonia: Status: Acute Plan Patient is a 40 Y M w/ polysubstance use and prior pneumonia presenting to ED on 02/02 w/ dyspnea, found to be in acute hypoxic respiratory failure necessitating HFNC, and hypotension; ED work-up suggestive of L pneumonia; ICU course c/b worsening acute hypoxic respiratory failure, intubated 02/02 PM N: intubated, sedated w/ propofol, fentanyl gtts, wean as tolerated CV: hypotension, likely d/t sedation, norepinephrine gtt, wean as tolerated R: pneumonia c/b acute hypoxic respiratory failure, intubated 02/02 PM, wean as tolerated GI: tube feeds : no acute issues H: no acute issues; chemical DVT prophylaxis ID: c/f pneumonia, MRSA swab positive, empiric vanc/zosyn/fluconazole, to follow-up BCx 02/02 E: no acute issues; to monitor hypo-/hyper-glycemia P: no acute issues S: daily updates given to mother Quality Stroke Does the patient have a stroke diagnosis?: No VTE Prior VTE?: No VTE Risk Level:: Medical - moderate - high VTE Device Contraindication: N/A - Device Ordered VTE Drug Contraindication: N/A - Med Ordered
[2025-02-04] MEDS: 0.9 % Sodium Chloride Flush 3 ML SYRINGE IVFLUSH ×2 (08:04→15:03)
[2025-02-04] MEDS: Albumin Human 25 % 50 ML 100 ML IV (08:04)
[2025-02-04] MEDS: Furosemide 20 MG/2 ML VIAL 10 MG IVPUSH (08:07)
[2025-02-04] MEDS: Chlorhexidine Gluc Oral Rinse 15 ML MOUTHWASH BUCCAL ×3 (08:08→23:15)
[2025-02-04] MEDS: fentaNYL citrate/NS 1,000 MCG/100 ML PLAST..BAG 15 MCG IVCONT ×3 (08:18→20:47)
--- NOTE | 2025-02-04 10:59 | MHC.CLN ---
F/U PT REMAINS INTUBATED AND SEDATED DISCUSSED AT ROUNDS WITH MD REVIEWED LABS CONTINUE TF VITAL 1.2 AF AT MAX GOAL RATE 45ML/HR WITH 240ML FREE WATER FLUSHES Q 4 HRS PROVIDES 1296KCALS (2212KCALS WITH SEDATION; 23KCALS/KG), 81G PROTEIN, 2316ML TOTAL FREE WATER FROM FORMULA AND FLUSHES (24ML/KG) MONITOR TOLERANCE AND LYTES
--- NOTE | 2025-02-04 12:43 | P.CDIM_ITS ---
PROVIDER RESPONSE TEXT: To clarify, the appropriate diagnosis supported by the clinical indicators: Hypoalbuminemia QUERY TEXT: PHYSICIAN'S DOCUMENTATION REQUEST Date of Query: 02/04/2025 09:11 AM EDT Patient Name: Kumar Adair Admit Date: 02/02/2025 Dear Farideh Galo MD, A review of the medical record indicates additional documentation may be needed. Please review below and update the documentation accordingly. Clinical Indicators: LABS: Albumin 2.9 L IV Albumin human Based on the above, could you clarify if there is a diagnosis that correlates with these findings? Hypoalbuminemia Labs indicate a diagnosis of (please specify) Other (explain) Clinically unable to determine (explain) Thank you, Vickie Mueller, CCS, CDIS Use of terms such as suspected, likely, concern for, or probable (associated with a specific diagnosis that is being evaluated, monitored, or treated as if it exists) are acceptable and can be coded in the inpatient setting, when documented at the time of discharge. Please use your independent medical judgment in providing your response. THIS QUERY IS PART OF THE PERMANENT MEDICAL RECORD
--- NOTE | 2025-02-04 14:49 | MHC.CM.PN ---
EMR REVIEWED AND PER ICU ROUNDS, PATIENT REMAINS ON VENTILATORY SUPPORT DUE TO SEVERE ACUTE HYPOXIC RESPIRATORY FAILURE/ARDS.
--- NOTE | 2025-02-04 19:58 | PC.NURSE ---
patient sedated and intubated, see MAR and vent assessment for full details, sedation increased as per MAR/PP for Vent Asynchrony, tube feed continues as ordered
[2025-02-05] VITALS (36 sets, daily range): BP systolic 117–149; BP diastolic 59–85; PULSE 56–93; RESP 8–23; TEMP 34.7–37.4; O2SAT 88–98; BMI 33.4
[2025-02-05] MEDS: fentaNYL citrate/NS 1,000 MCG/100 ML PLAST..BAG 15 MCG IVCONT (03:25)
[2025-02-05] MEDS: Midazolam HCl/NS 50 MG/50 ML PLAST..BAG IVCONT ×2 (04:41→15:30)
--- NOTE | 2025-02-05 05:26 | PC.NURSE ---
assumed care 1900 pt remains intubated on PSV, rass -2, on prop and fent, SR on tele, tube feeds running at goal, olsen removed previous shift BS at [address] cath for 600cc, next DTV 0530 02/05. at 0430 pt became restless rass of +3 thrashing in bed throwing legs over bed. pt able to make answer yes no questions for this RN and RECTIFYING OPERATOR. pt states having abd pain and nausea. remains thrashings in bed. new order for versed push and gtt and zofran. admin as ordered. tubed feeds paused at this time d/t c/o nausea. RECTIFYING OPERATOR aware. RT at beside to advance tube ET tube to 28cm per RECTIFYING OPERATOR request. pt bladder scan at this time for 97cc. family updated. plan of care continues.
[2025-02-05 05:58] LABS: VBG HCO3 23 mmol/L (22-26); VBG O2 % Saturation 100.0 %
[2025-02-05 06:03] LABS: Venous Blood Gas Refer to POC result
[2025-02-05 06:22] LABS: Hematocrit 30.9 % (42.0-52.0); Hemoglobin 10.0 g/dl (14.0-18.0); Mean Corpuscular HGB Conc 32.4 g/dl (31.0-36.0); Mean Corpuscular Hemoglobin 26.5 pg (27.0-33.0); Mean Corpuscular Volume 81.7 fL (80.0-98.0); NRBC Abs Auto 0.000 X10*3/uL (0.0-0.012); NRBC Pct Auto 0.0 /100WBC (0.0-0.2); Platelet Count 258 X10*3/uL (160-400); Red Blood Count 3.78 X10*6/uL (4.60-5.80); White Blood Count 8.4 X10*3/uL (4.8-10.8)
[2025-02-05 06:25] LABS: Albumin Level 3.2 g/dL (3.5-5.0); Anion Gap 14 (12-20); Blood Urea Nitrogen 12 mg/dL (9-16); Calcium 8.6 mg/dL (8.4-10.2); Carbon Dioxide 24 mmol/L (22-29); Chloride 110 mmol/L (96-108); Creatinine Clr Calc Pharmacy 182.5; Estimated Glomerular Filt Rate > 60; Magnesium 2.2 mg/dL (1.6-2.6); Potassium 3.7 mmol/L (3.3-5.1); Sodium 144 mmol/L (135-145)
--- NOTE | 2025-02-05 06:38 | PM.CCPN ---
Subjective Subjective Date of Service: 02/05/25 Interval History: agitation, started on midazolam gtt, though still maintaining spontaneous respirations; persistent ARDS, critical and guarded clinical status Critical Care Time (minutes): 60 Physical Exam Vital Signs: Vital Signs: Last Vital Signs Temp 98.6 F 02/05/25 04:00 Pulse 85 02/05/25 06:00 Resp 18 02/05/25 06:00 BP 131/74 02/05/25 06:00 Pulse Ox 94 02/05/25 06:00 O2 Del Method Mechanical Ventil ation 02/05/25 06:00 O2 Flow Rate 80 02/02/25 18:55 FiO2 100 02/05/25 06:00 BMI result Body Mass Index 33.4 Const: Other: intubated, sedated, though still maintaining spontaneous breaths; intermittent agitation General: comfortable, no acute distress, well developed and Physically active HEENT: Head: Yes normal to inspection, Yes normocephalic and Yes atraumatic Eyes: General: appearance normal, both eyes and all related structures Neck: Neck: Yes normal visual inspection, Yes full ROM, Yes no meningeal signs, Yes trachea midline and Yes supple Chest: Chest palpation & inspection: normal inspection of the chest Resp: Other: some appreciable rhonchi; no appreciable overt rales, wheezing Effort & Inspection: normal respiratory effort Cardio: Rate: regular rate Rhythm: regular rhythm GI: Inspection: Yes normal to inspection, No Abdominal wall edema and No distended Palpation (GI): Soft to palpation, not firm, nontender, no guarding and not rigid Skin: General skin exam: no rashes or lesions noted Neuro: General: tone normal, moves all extremities and no meningeal signs Extrem: General: Yes normal to inspection, Yes full ROM, Yes capillary refill normal and Yes no clubbing, cyanosis or edema Psych: Other: intermittent agitation necessitating multiple sedative gtts Objective Data Labs 02/05/25 05:54 02/05/25 05:54 Labs: Laboratory Results - last 24 hr 02/04/25 02/04/25 02/05/25 05:53 20:53 05:54 WBC 8.4 RBC 3.78 L Hgb 10.0 L Hct 30.9 L MCV 81.7 MCH 26.5 L MCHC 32.4 RDW 14.2 Plt Count 258 MPV 9.3 L Immature Gran % (Auto) Cancelled Neut % (Auto) Cancelled Lymph % (Auto) Cancelled [place] % (Auto) Cancelled Eos % (Auto) Cancelled Baso % (Auto) Cancelled Lymph # (Auto) Cancelled [place] # (Auto) Cancelled Eos # (Auto) Cancelled Baso # (Auto) Cancelled Abs Immat Gran (auto) Cancelled Absolute Neuts (auto) Cancelled Absolute Nucleated RBC 0.000 Nucleated RBC % (auto) 0.0 VBG pH 7.57 H VBG pCO2 25 VBG pO2 120 VBG HCO3 23 VBG O2 Saturation 100.0 VBG Base Excess 2.4 Sodium 142 144 Potassium 3.9 3.7 Chloride 110 H 110 H Carbon Dioxide 23 24 Anion Gap 13 14 BUN 10 12 Creatinine 0.75 0.72 Estim Creat Clear Calc 175.2 182.5 Estimated GFR > 60 > 60 Random Glucose 104 161 H Calcium 8.4 8.6 Phosphorus 3.4 3.9 Magnesium 1.9 2.2 Albumin 3.2 L Random Vancomycin 14.7 L Microbiology Microbiology Results: Microbiology 02/02/25 17:01 Blood - Venous Blood Culture - Preliminary No growth after 48 hours. 02/02/25 17:01 Blood - Venous Blood Culture - Preliminary No growth after 48 hours. 02/02/25 21:55 Sputum - Suctioned Gram Stain - Final 02/02/25 21:55 Sputum - Suctioned Sputum Culture - Preliminary Culture in progress. Progress Note: A&P Assessment and plan (1) ARDS (adult respiratory distress syndrome): Status: Acute (2) Pneumonia: Status: Acute Plan Patient is a 40 Y M w/ polysubstance use and prior pneumonia presenting to ED on 02/02 w/ dyspnea, found to be in acute hypoxic respiratory failure necessitating HFNC, and hypotension; ED work-up suggestive of L pneumonia; ICU course c/b worsening acute hypoxic respiratory failure, intubated 02/02 PM N: intubated, sedated w/ propofol, fentanyl, midazolam gtts, wean as tolerated CV: hypotension, likely d/t sedation, on/off norepinephrine gtt, wean as tolerated R: pneumonia c/b acute hypoxic respiratory failure, intubated 02/02 PM, persistent ARDS GI: tube feeds : no acute issues H: no acute issues; chemical DVT prophylaxis ID: c/f pneumonia, MRSA swab positive, empiric vanc/zosyn/fluconazole, to follow-up BCx, RCx 02/02 E: no acute issues; to monitor hypo-/hyper-glycemia P: no acute issues S: daily updates given to mother Quality Stroke Does the patient have a stroke diagnosis?: No VTE Prior VTE?: No VTE Risk Level:: Medical - moderate - high VTE Device Contraindication: N/A - Device Ordered VTE Drug Contraindication: N/A - Med Ordered
[2025-02-05] MEDS: Albumin Human 25 % 50 ML 100 ML IV (06:46)
[2025-02-05 06:49] LABS: Atypical Lymph Absolute Manual 0.1 x10*3/uL; Band Neutrophils Percent 7 % (3-5); Basophils Abs Manual 0.2 X10*3/uL (0.0-0.2); Basophils Percent Manual 2 % (0-2); Lymphocytes Absolute Manual 0.3 X10*3/uL (1.2-4.9); Lymphocytes Percent Manual 4 % (20-40)
[2025-02-05 06:50] LABS: Eosinophils Absolute Manual 0.1 X10*3/uL (0.0-0.4); Eosinophils Percent Manual 1 % (0-4); Metamyelocytes Absolute 0.1 X10*3/uL; Metamyelocytes Percent 1 %; Monocytes Absolute Manual 0.3 X10*3/uL (0.1-1.2); Monocytes Percent Manual 3 % (2-11); Neutrophils Absolute Manual 7.5 X10*3/uL (2.0-8.3); Neutrophils Percent Manual 82 % (45-73)
[2025-02-05 06:51] LABS: RBC Morphology NOTED
[2025-02-05 06:52] LABS: Ovalocytes 1+ (5-14) /OIF; Polychromasia 1+ (0-2) /OIF; Tear Drop Cells 1+ (0-2) /OIF
[2025-02-05 06:53] LABS: Toxic Vacuolation PRESENT
[2025-02-05] MEDS: 0.9 % Sodium Chloride Flush 3 ML SYRINGE IVFLUSH ×2 (07:58→15:35)
[2025-02-05] MEDS: fentaNYL citrate/NS 1,000 MCG/100 ML PLAST..BAG 20 MCG IVCONT (08:20)
[2025-02-05] MEDS: Furosemide 20 MG/2 ML VIAL 10 MG IVPUSH (08:21)
[2025-02-05] MEDS: Chlorhexidine Gluc Oral Rinse 15 ML MOUTHWASH BUCCAL ×3 (08:21→21:15)
[2025-02-05] MEDS: fentaNYL citrate/NS 1,000 MCG/100 ML PLAST..BAG 30 MCG IVCONT (12:33)
--- NOTE | 2025-02-05 14:21 | MHC.CM.PN ---
Pt remains intubated w/ARDS in very guarded condition. CM to follow for changes in d/c planning needs: pt from home with family.
[2025-02-05] MEDS: fentaNYL citrate/NS 1,000 MCG/100 ML PLAST..BAG 35 MCG IVCONT (15:33)
--- NOTE | 2025-02-05 15:54 | HE.ICUCC ---
ICU Critical Care Nursing Note - 7a-3p Intubated since 02/02. Issues with sedation. Patient very restless. RASS 1-2+... O2sat can be [address] Galo aware and adjusted sedation as follows: Sedated with Propofol, Fentanyl and versed. Increased fentanyl from 200 to 350 mcg and prn extra 100mcg doses given x2. Propofol remains at max (per JUN). Versed - increased from 2 to 4mg/hr & gave 2 PRN doses as well (2 & 4 mg IVP). Patient will nod and shake head to questions intermit when questioned. Rested for a short time after first increase/prn dose of sedation, but then became restless after 2pm reposition again. Patient restrained for airway safety since not always following directions and pulling toward ETT. HR SR. Vasopressor remains off per parameter. MAP > 65. Moderate amt thick cream secretions in-line. Patient remains intubated. Tolerating PSV settings - maintaining good volumes despite sedation - 6-9 min vol. Bladderscanned for 369 in morning - per protocol/MD order - olsen cath put back in. Lasix given as well. Good U/O (per EMAR) Mother, Britney, brother, Kip, and , Karen, were all at bedside at one point during day - updated about plan of care. Report given to Kristina WEBB & Dr Galo aware of sedation requirements.
[2025-02-05] MEDS: fentaNYL citrate/NS 1,000 MCG/100 ML PLAST..BAG 40 MCG IVCONT ×3 (17:56→22:45)
--- NOTE | 2025-02-05 21:16 | HE.PHANOTE ---
Re: Vanco Renal function improving. Trough returned at 18.0. Pt is therapeutic. Continue currect dose of 1250 q8h, with predicted auc 490, predicted trough 16.. Next trough 02/06 @ 2100.
[2025-02-05] MEDS: dexmedeTOMIDine HCL/NS 400 MCG/100 ML PLAST..BAG 28.75 MCG IVCONT ×2 (21:50→23:54)
[2025-02-06] VITALS (36 sets, daily range): BP systolic 129–157; BP diastolic 65–87; PULSE 58–76; RESP 19–23; TEMP 34.4–38.5; O2SAT 87–95; BMI 29.2
[2025-02-06] MEDS: 0.9 % Sodium Chloride Flush 3 ML SYRINGE IVFLUSH ×3 (01:17→15:59)
[2025-02-06] MEDS: fentaNYL citrate/NS 1,000 MCG/100 ML PLAST..BAG 40 MCG IVCONT ×10 (01:26→22:21)
[2025-02-06] MEDS: Midazolam HCl/NS 50 MG/50 ML PLAST..BAG IVCONT (02:24)
[2025-02-06] MEDS: dexmedeTOMIDine HCL/NS 400 MCG/100 ML PLAST..BAG 28.75 MCG IVCONT ×5 (03:12→16:40)
--- NOTE | 2025-02-06 04:41 | PC.NURSE ---
Assumed care of patient at 1900. Initially patient restless, and thrashing in bed. Able to answer yes/no questions. Pupils reactive, + cough/ gag. Patient's sedation increased and Precedex added/infusing at 1mcg/kg/hr. Currently Fentanyl 400mcg/hr , Versed 4 mg/hr, Propofol 50 mcg/kg/min/ infusing for sedation. Patient calm and resting at present. Non-behavioral restraints in place. SR on telemetry. Vent settings changed to ACVC d/t low tidal volumes/ O2 sats 87%. LS coarse throughout.7.5 ETT/ advanced to 28/lip. VSS. Tube feeding running at goal 45ml/hr 240 ml water bolus every 4 hours. No BM overnight. Indwelling olsen in place output approx. 50-100ml/hr. Green tinged urine. Skin intact / left arm abrasion xeroform/foam dressing reapplied. CDI. Plan of care continued. Family/ mother (HCP) updated .
[2025-02-06 05:02] LABS: VBG HCO3 26 mmol/L (22-26); VBG O2 % Saturation 95.0 %
[2025-02-06 05:03] LABS: Venous Blood Gas Refer to POC result
[2025-02-06 05:17] LABS: NRBC Abs Auto 0.000 X10*3/uL (0.0-0.012); NRBC Pct Auto 0.0 /100WBC (0.0-0.2); PLT CLUMP 1
[2025-02-06 05:19] LABS: Hematocrit 30.8 % (42.0-52.0); Hemoglobin 9.8 g/dl (14.0-18.0); Mean Corpuscular HGB Conc 31.8 g/dl (31.0-36.0); Mean Corpuscular Hemoglobin 26.3 pg (27.0-33.0); Mean Corpuscular Volume 82.6 fL (80.0-98.0); Red Blood Count 3.73 X10*6/uL (4.60-5.80)
[2025-02-06 05:38] LABS: Platelet Count 247 X10*3/uL (160-400); White Blood Count 9.6 X10*3/uL (4.8-10.8)
[2025-02-06 05:49] LABS: Albumin Level 3.2 g/dL (3.5-5.0); Anion Gap 14 (12-20); Blood Urea Nitrogen 13 mg/dL (9-16); Calcium 8.2 mg/dL (8.4-10.2); Carbon Dioxide 23 mmol/L (22-29); Chloride 109 mmol/L (96-108); Creatinine Clr Calc Pharmacy 199.6; Estimated Glomerular Filt Rate > 60; Magnesium 2.1 mg/dL (1.6-2.6); Potassium 3.9 mmol/L (3.3-5.1); Sodium 142 mmol/L (135-145); Triglycerides 509 mg/dL (<150)
[2025-02-06 05:54] LABS: Band Neutrophils Percent 3 % (3-5); Eosinophils Absolute Manual 0.2 X10*3/uL (0.0-0.4); Eosinophils Percent Manual 2 % (0-4); Lymphocytes Absolute Manual 2.0 X10*3/uL (1.2-4.9); Lymphocytes Percent Manual 21 % (20-40); Metamyelocytes Absolute 0.3 X10*3/uL; Metamyelocytes Percent 3 %; Monocytes Absolute Manual 0.4 X10*3/uL (0.1-1.2); Monocytes Percent Manual 4 % (2-11); Neutrophils Absolute Manual 6.7 X10*3/uL (2.0-8.3); Neutrophils Percent Manual 67 % (45-73); RBC Morphology NOTED
[2025-02-06 05:56] LABS: Large Platelet PRESENT; Macrocytosis 1+ (5-14) /OIF; Ovalocytes 1+ (5-14) /OIF
[2025-02-06 05:57] LABS: Burr Cells 1+ (0-2) /OIF; Polychromasia 1+ (0-2) /OIF
--- NOTE | 2025-02-06 08:00 | P.PNCC_ITS ---
Subjective Subjective Date of Service: 02/06/25 Interval History: agitation, necessitating multiple sedative gtts; persistent ARDS, critical and guarded clinical status Critical Care Time (minutes): 60 Physical Exam 2 Vital Signs: Vital Signs: Last Vital Signs Temp 100.4 F 02/06/25 07:00 Pulse 75 02/06/25 07:00 Resp 20 02/06/25 07:00 BP 132/69 02/06/25 07:00 Pulse Ox 89 L 02/06/25 07:00 O2 Del Method Mechanical Ventil ation 02/06/25 07:00 O2 Flow Rate 80 02/02/25 18:55 FiO2 100 02/06/25 07:54 BMI result Body Mass Index 29.2 Const: Other: intubated, sedated; some spontaneous, non-purposeful movements; no appreciable overt distress General: well developed HEENT: Head: Yes normal to inspection, Yes normocephalic and Yes atraumatic Eyes: General: appearance normal, both eyes and all related structures Neck: Neck: Yes normal visual inspection, Yes full ROM, Yes no meningeal signs, Yes trachea midline and Yes supple Chest: Chest palpation & inspection: normal inspection of the chest Resp: Other: some appreciable rhonchi, rales; no appreciable overt wheezing Cardio: Rate: regular rate Rhythm: regular rhythm GI: Inspection: Yes normal to inspection, No Abdominal wall edema and No distended Palpation (GI): Soft to palpation, not firm, nontender, no guarding and not rigid Skin: General skin exam: no rashes or lesions noted Neuro: General: tone normal, moves all extremities and no meningeal signs Extrem: Other: appreciable 1+ pitting edema to bilateral shins General: Yes normal to inspection, Yes full ROM and Yes capillary refill normal Psych: Other: agitated Objective Data Labs 02/06/25 04:47 02/06/25 04:47 Labs: Laboratory Results - last 24 hr 02/05/25 02/06/25 02/06/25 20:46 04:47 04:54 WBC 9.6 RBC 3.73 L Hgb 9.8 L Hct 30.8 L MCV 82.6 MCH 26.3 L MCHC 31.8 RDW 14.6 Plt Count 247 MPV 10.5 Immature Gran % (Auto) Cancelled Neut % (Auto) Cancelled Lymph % (Auto) Cancelled [place] % (Auto) Cancelled Eos % (Auto) Cancelled Baso % (Auto) Cancelled Lymph # (Auto) Cancelled [place] # (Auto) Cancelled Eos # (Auto) Cancelled Baso # (Auto) Cancelled Abs Immat Gran (auto) Cancelled Absolute Neuts (auto) Cancelled Absolute Nucleated RBC 0.000 Nucleated RBC % (auto) 0.0 Neutrophils % (Manual) 67 Band Neutrophils % 3 Lymphocytes % (Manual) 21 Monocytes % (Manual) 4 Eosinophils % (Manual) 2 Metamyelocytes % 3 Abs Neuts (Manual) 6.7 Lymphocytes # (Manual) 2.0 Monocytes # (Manual) 0.4 Eosinophils # (Manual) 0.2 Metamyelocytes # 0.3 Platelet Estimate NORMAL Large Platelets PRESENT Plt Morphology Comment NOTED RBC Morphology NOTED Polychromasia 1+ (0-2) Macrocytosis 1+ (5-14) Ovalocytes 1+ (5-14) [place] Cells 1+ (0-2) VBG pH 7.48 H VBG pCO2 34 VBG pO2 75 VBG HCO3 26 VBG O2 Saturation 95.0 VBG Base Excess 3.1 Sodium 142 Potassium 3.9 Chloride 109 H Carbon Dioxide 23 Anion Gap 14 BUN 13 Creatinine 0.66 Estim Creat Clear Calc 199.6 Estimated GFR > 60 Random Glucose 153 H Calcium 8.2 L Phosphorus 3.2 Magnesium 2.1 Albumin 3.2 L Triglycerides 509 H Random Vancomycin 18.0 Microbiology Microbiology Results: Microbiology 02/02/25 21:55 Sputum - Suctioned Gram Stain - Final 02/02/25 21:55 Sputum - Suctioned Sputum Culture - Final Staphylococcus aureus Streptococcus group c 02/02/25 17:01 Blood - Venous Blood Culture - Preliminary No growth after 48 hours. 02/02/25 17:01 Blood - Venous Blood Culture - Preliminary No growth after 48 hours. Progress Note: A&P Assessment and plan (1) ARDS (adult respiratory distress syndrome): Status: Acute (2) Pneumonia: Status: Acute Plan Patient is a 40 Y M w/ polysubstance use and prior pneumonia presenting to ED on 02/02 w/ dyspnea, found to be in acute hypoxic respiratory failure necessitating HFNC, and hypotension; ED work-up suggestive of L pneumonia; ICU course c/b worsening acute hypoxic respiratory failure, intubated 02/02 PM N: intubated, agitated, sedated w/ propofol, fentanyl, midazolam, dexmedetomidine gtts, wean as tolerated CV: hypotension, likely d/t sedation, on/off norepinephrine gtt, wean as tolerated R: pneumonia c/b acute hypoxic respiratory failure, intubated 02/02 PM, persistent ARDS GI: tube feeds : no acute issues H: no acute issues; chemical DVT prophylaxis ID: pneumonia, MRSA swab positive, RCx w/ staph and strep, vanc/levo, to follow- up BCx 02/02 E: no acute issues; to monitor hypo-/hyper-glycemia P: no acute issues S: daily updates given to mother Quality Stroke Does the patient have a stroke diagnosis?: No VTE Prior VTE?: No VTE Risk Level:: Medical - moderate - high VTE Device Contraindication: N/A - Device Ordered VTE Drug Contraindication: N/A - Med Ordered
[2025-02-06] MEDS: Chlorhexidine Gluc Oral Rinse 15 ML MOUTHWASH BUCCAL ×3 (08:18→20:13)
[2025-02-06] MEDS: Furosemide 20 MG/2 ML VIAL 10 MG IVPUSH (08:19)
[2025-02-06] MEDS: Calcium Gluconate/NaCl,Iso-Osm 1 GM/50 ML PLAST..BAG IV (08:43)
[2025-02-06] MEDS: Albumin Human 25 % 50 ML 100 ML IV (08:44)
--- NOTE | 2025-02-06 09:38 | MHC.CLN ---
F/U PT REMAINS INTUBATED AND SEDATED REVIEWED LABS CONTINUE TF VITAL 1.2 AF AT MAX GOAL RATE 45ML/HR WITH 240ML FREE WATER FLUSHES Q 4 HRS PROVIDES 1296KCALS (2212KCALS WITH SEDATION; 23KCALS/KG), 81G PROTEIN, 2316ML TOTAL FREE WATER FROM FORMULA AND FLUSHES (24ML/KG) MONITOR TOLERANCE AND LYTES RD CAN BE REACHED VIA TIGER CONNECT DURING OFF HOURS IF NEEDED
--- NOTE | 2025-02-06 13:06 | MHC.CM.PN ---
Pt remains on ventilatory and pressor support in ICU: FiO2 90 - 100%. Weaning of pressors and sedations will be ongoing. CM to follow for finalization of d/c plans
[2025-02-06] MEDS: Midazolam HCl/NS 50 MG/50 ML PLAST..BAG 6 MG IVCONT ×2 (13:33→17:55)
--- NOTE | 2025-02-06 15:59 | HE.ICUCC ---
ICU Critical Care Nursing Note - Shift eval 7a-3p Vent Day #: 5 (Intubated on 02/02) Neuro: Patient arousable, but resting with current sedation - fentanyl drip maxed, dexmedetomidine 1 mcg/kg/hr, propofol max rate, versed - increased to 6 mg/hr (see MAR for titrations). Also medicated x2 with PRN versed & fentanyl as per MAR prior to patient care r/t patient gets very agitated. At closer to noon, patient increase agitation, attempted to pull at ETT - increased versed at that time to 6. Restraints kept on for airway safety. Patient given emotional support, still able to follow directions and interact with family when they came to bedside (aunt, brother, and cousin) - patient was shaking head, mouthing words, following directions. Patient denies pain when asked and rested intermit without verbally/tactile stimulation. Dr Galo aware of sedation levels & med changes discussed above. Cardiac: NSR 70's, question ectopy / arrhythmia at approx 1300 - EKG done to confirm rhythm. Dr Galo viewed EKG - no concern / change in rhythm per EKG. MAP >65 without vasopressor support. Upper extremity edema - non-pitting hands/arms. Resp: Patient tolerating AC settings - able to decrease FiO2 from 100% to 80%. See vent assessment. GI/: Tolerating tube feed & water boluses. No BM since admission - Dr Galo aware and ordered PRN Miralax - given as per JUN. Jones cath remains in place. Received sched IVP lasix - good urine output > 200ml/hr. Integumentary/Musculoskeletal: Patient moving all extremities at times. Foam dressings in place on coccyx and left antecub area - CDI. Psychosocial (family etc.): Brother, aunt, cousin came to bedside late morning. Interacted with patient and patient was very pleasant with family. Mother came in afternoon. Dr Galo and this RN updated family about plan of care. Infectious Disease: T-max 101.3 - tylenol IV given for fever (see MAR) - with little effect. Dr Galo aware of temp. Sputum culture sensitivity result came back - Staph aureus & Strep C. Dr Galo changed antibiotics as per JUN. Stopped Zosyn & started Levaquin. Vanco order remains same. Report given to Criselda WEBB.
--- NOTE | 2025-02-06 16:51 | PC.NURSE ---
Addendum entered by Criselda Sandoval RN 02/06/25 16:52: Febrile 101.3. Ice packs in place. Original Note: Assumed care @ 1500 Neuro/Resp: Sedated/intubated, on? propofol, versed, precedex,? and fentanyl gtt., opens eyes occasionally,? follows simple commands,? CROOKS.? Cardiac: Sinus Rhythm on tele GI: unknown LBM, +bowel sounds, OGT in place, Tolerating TF w/o signs of intolerance.? : Jones in place, patent /draining. Skin: see skin assessment (repositioning maintained)? Infectious: IV antibiotics? Lines: peripheral IVs
[2025-02-06] MEDS: Furosemide 20 MG/2 ML VIAL IVPUSH (17:38)
[2025-02-06] MEDS: dexmedeTOMIDine HCL/NS 400 MCG/100 ML PLAST..BAG 34.5 MCG IVCONT ×2 (19:41→22:27)
[2025-02-07] VITALS (31 sets, daily range): BP systolic 107–157; BP diastolic 53–85; PULSE 65–95; RESP 11–22; TEMP 34.9–38.5; O2SAT 88–98; BMI 29.2
[2025-02-07] MEDS: fentaNYL citrate/NS 1,000 MCG/100 ML PLAST..BAG 40 MCG IVCONT ×4 (00:45→08:07)
[2025-02-07] MEDS: Midazolam HCl/NS 50 MG/50 ML PLAST..BAG 6 MG IVCONT ×2 (00:47→09:35)
[2025-02-07] MEDS: 0.9 % Sodium Chloride Flush 3 ML SYRINGE IVFLUSH ×3 (00:52→17:19)
[2025-02-07] MEDS: dexmedeTOMIDine HCL/NS 400 MCG/100 ML PLAST..BAG 34.5 MCG IVCONT ×6 (01:14→15:40)
[2025-02-07 06:13] LABS: VBG HCO3 26 mmol/L (22-26); VBG O2 % Saturation 100.0 %
--- NOTE | 2025-02-07 07:10 | PC.NURSE ---
Assumed care of the patient at 1900. The patient is intubated and sedated on propofol, fentanyl, versed and precedex.? Patient arousable on current sedation, opens eyes, tracks, follows simple commands, CROOKS and attempts to mouth words. NSR on telemetry, no pressor support. Tube feeding running at goal of 45ml/hr, water flushes decreased to 120ml every 4 hours. Jones catheter intact. No bowel movement overnight. Family at bedside at the beginning of the shift, patient?s mother phoned unit and was updated on the patient?s status.
[2025-02-07 07:24] LABS: Hematocrit 31.3 % (42.0-52.0); Hemoglobin 10.2 g/dl (14.0-18.0); Mean Corpuscular HGB Conc 32.6 g/dl (31.0-36.0); Mean Corpuscular Hemoglobin 26.2 pg (27.0-33.0); Mean Corpuscular Volume 80.5 fL (80.0-98.0); NRBC Abs Auto 0.020 X10*3/uL (0.0-0.012); NRBC Pct Auto 0.2 /100WBC (0.0-0.2); Platelet Count 303 X10*3/uL (160-400); Red Blood Count 3.89 X10*6/uL (4.60-5.80); White Blood Count 12.5 X10*3/uL (4.8-10.8)
[2025-02-07 07:37] LABS: Albumin Level 3.4 g/dL (3.5-5.0)
[2025-02-07 07:39] LABS: Anion Gap 15 (12-20); Blood Urea Nitrogen 14 mg/dL (9-16); Calcium 8.4 mg/dL (8.4-10.2); Carbon Dioxide 26 mmol/L (22-29); Chloride 103 mmol/L (96-108); Creatinine Clr Calc Pharmacy 181.8; Estimated Glomerular Filt Rate > 60; Magnesium 2.0 mg/dL (1.6-2.6); Potassium 3.4 mmol/L (3.3-5.1); Sodium 141 mmol/L (135-145)
[2025-02-07 07:58] LABS: Band Neutrophils Percent 2 % (3-5); Basophils Abs Manual 0.1 X10*3/uL (0.0-0.2); Basophils Percent Manual 1 % (0-2); Eosinophils Absolute Manual 0.3 X10*3/uL (0.0-0.4); Eosinophils Percent Manual 2 % (0-4); Lymphocytes Absolute Manual 3.4 X10*3/uL (1.2-4.9); Lymphocytes Percent Manual 27 % (20-40); Metamyelocytes Absolute 0.4 X10*3/uL; Metamyelocytes Percent 3 %; Monocytes Absolute Manual 0.5 X10*3/uL (0.1-1.2); Monocytes Percent Manual 4 % (2-11); Myelocytes Absolute 0.3 X10*/uL; Myelocytes Percent 2 %; Neutrophils Absolute Manual 7.6 X10*3/uL (2.0-8.3); Neutrophils Percent Manual 59 % (45-73)
[2025-02-07 07:59] LABS: RBC Morphology NORMAL
[2025-02-07] MEDS: Chlorhexidine Gluc Oral Rinse 15 ML MOUTHWASH BUCCAL (08:03)
[2025-02-07] MEDS: Furosemide 20 MG/2 ML VIAL IVPUSH ×2 (08:03→18:00)
--- NOTE | 2025-02-07 09:06 | P.PNCC_ITS ---
Subjective Subjective Date of Service: 02/07/25 Interval History: no significant overnight events; some improvement hypoxia Critical Care Time (minutes): 60 Physical Exam 2 Vital Signs: Vital Signs: Last Vital Signs Temp 100.8 F H 02/07/25 08:00 Pulse 73 02/07/25 08:00 Resp 20 02/07/25 08:00 BP 145/77 H 02/07/25 08:00 Pulse Ox 92 02/07/25 08:00 O2 Del Method Mechanical Ventil ation 02/07/25 08:00 O2 Flow Rate 80 02/02/25 18:55 FiO2 60 02/07/25 08:00 BMI result Body Mass Index 29.2 Const: Other: intubated General: no acute distress, well developed, alert, awake and Physically active HEENT: Head: Yes normal to inspection, Yes normocephalic and Yes atraumatic Eyes: General: appearance normal, both eyes and all related structures Neck: Neck: Yes normal visual inspection, Yes full ROM, Yes no meningeal signs, Yes trachea midline and Yes supple Chest: Chest palpation & inspection: normal inspection of the chest Resp: Other: some appreciable rhonchi; no appreciable overt rales, wheezing Effort & Inspection: normal respiratory effort Cardio: Rate: tachycardic Rhythm: regular rhythm GI: Inspection: Yes normal to inspection, No Abdominal wall edema and No distended Palpation (GI): Soft to palpation, not firm, nontender, no guarding and not rigid Skin: General skin exam: no rashes or lesions noted Neuro: General: tone normal, moves all extremities, no meningeal signs and no focal motor deficits Extrem: General: Yes normal to inspection, Yes full ROM, Yes capillary refill normal and Yes no clubbing, cyanosis or edema Psych: Other: intermittent agitation, though re-directable Objective Data Labs 02/07/25 06:13 02/07/25 06:13 Labs: Laboratory Results - last 24 hr 02/06/25 02/07/25 02/07/25 15:20 06:08 06:13 WBC 12.5 H RBC 3.89 L Hgb 10.2 L Hct 31.3 L MCV 80.5 MCH 26.2 L MCHC 32.6 RDW 14.1 Plt Count 303 MPV 9.0 L Immature Gran % (Auto) Cancelled Neut % (Auto) Cancelled Lymph % (Auto) Cancelled [place] % (Auto) Cancelled Eos % (Auto) Cancelled Baso % (Auto) Cancelled Lymph # (Auto) Cancelled [place] # (Auto) Cancelled Eos # (Auto) Cancelled Baso # (Auto) Cancelled Abs Immat Gran (auto) Cancelled Absolute Neuts (auto) Cancelled Absolute Nucleated RBC 0.020 H Nucleated RBC % (auto) 0.2 Neutrophils % (Manual) 59 Band Neutrophils % 2 L Lymphocytes % (Manual) 27 Monocytes % (Manual) 4 Eosinophils % (Manual) 2 Basophils % (Manual) 1 Metamyelocytes % 3 Myelocytes % 2 Abs Neuts (Manual) 7.6 Lymphocytes # (Manual) 3.4 Monocytes # (Manual) 0.5 Eosinophils # (Manual) 0.3 Basophils # (Manual) 0.1 Metamyelocytes # 0.4 Myelocytes # 0.3 Platelet Estimate NORMAL Plt Morphology Comment NORMAL RBC Morphology NORMAL VBG pH 7.72 H* VBG pCO2 20 VBG pO2 153 VBG HCO3 26 VBG O2 Saturation 100.0 VBG Base Excess 8.6 Sodium 141 Potassium 3.4 Chloride 103 Carbon Dioxide 26 Anion Gap 15 BUN 14 Creatinine 0.68 Estim Creat Clear Calc 181.8 Estimated GFR > 60 Random Glucose 128 H Calcium 8.4 Phosphorus 3.5 Magnesium 2.0 Albumin 3.4 L Random Vancomycin 16.9 Microbiology Microbiology Results: Microbiology 02/02/25 21:55 Sputum - Suctioned Gram Stain - Final 02/02/25 21:55 Sputum - Suctioned Sputum Culture - Final Staphylococcus aureus Streptococcus group c 02/02/25 17:01 Blood - Venous Blood Culture - Preliminary No growth after 48 hours. 02/02/25 17:01 Blood - Venous Blood Culture - Preliminary No growth after 48 hours. Progress Note: A&P Assessment and plan (1) ARDS (adult respiratory distress syndrome): Status: Acute (2) Pneumonia: Status: Acute Plan Patient is a 40 Y M w/ polysubstance use and prior pneumonia presenting to ED on 02/02 w/ dyspnea, found to be in acute hypoxic respiratory failure necessitating HFNC, and hypotension; ED work-up suggestive of L pneumonia; ICU course c/b worsening acute hypoxic respiratory failure, intubated 02/02 PM N: intubated, interval improvement agitation, propofol, fentanyl, midazolam, dexmedetomidine gtts, wean as tolerated CV: no acute issues; to closely monitor R: pneumonia c/b ARDS, intubated 02/02 PM, improving GI: tube feeds : no acute issues H: no acute issues; chemical DVT prophylaxis ID: pneumonia, MRSA swab positive, RCx w/ staph and strep, vanc/levo, to follow- up BCx 02/02 E: no acute issues; to monitor hypo-/hyper-glycemia P: no acute issues S: daily updates given to mother; of note, polysubstance misuse including significant alprazolam use Quality Stroke Does the patient have a stroke diagnosis?: No VTE Prior VTE?: No VTE Risk Level:: Medical - moderate - high VTE Device Contraindication: N/A - Device Ordered VTE Drug Contraindication: N/A - Med Ordered
[2025-02-07] MEDS: Albumin Human 25 % 50 ML 100 ML IV (09:47)
[2025-02-07 10:36] LABS: Venous Blood Gas Refer to POC result
[2025-02-07] MEDS: fentaNYL citrate/NS 1,000 MCG/100 ML PLAST..BAG 25 MCG IVCONT (10:49)
--- NOTE | 2025-02-07 14:49 | HE.PHANOTE ---
Addendum entered by Svetlana Gonzalez RPh 02/07/25 15:47: RE METHADONE * Original Note: RE CHEMO Pharmacy received patients methadone verification sheet, patient is confirmed to be getting dosed with [facility] Yudelka, . Dosed with 98 mg last on 02/02/2025 and was given 14 take home bottles
[2025-02-07] MEDS: methADONE HCl 20 MG/2 ML ORAL.CONC 50 MG PO (15:40)
--- NOTE | 2025-02-07 15:43 | HE.PHANOTE ---
RE: VANCO Trough returned high @21.4. Decreasing dose to 750 mg Q8H to ensure safety. Holding dose until 2100 to allow patient to clear. Next trough due 02/08 @1100 after second dose to re evaluate.
[2025-02-07] MEDS: dexmedeTOMIDine HCL/NS 400 MCG/100 ML PLAST..BAG 28.75 MCG IVCONT (18:56)
--- NOTE | 2025-02-07 19:43 | PC.NURSE ---
Patient sedated and intubated this morning, Extubated at 1245 today, tolerated well continued on Versed 4mg and Precedex 1.2 til this evening, passed swallow nurse noelle, dinner given, patient had moments of confusion/forgetfulness, MD made aware, Versed D/C and Xanax PO started, tolerated well.
[2025-02-07] MEDS: dexmedeTOMIDine HCL/NS 400 MCG/100 ML PLAST..BAG 11.5 MCG IVCONT (22:41)
[2025-02-08] VITALS (22 sets, daily range): BP systolic 123–177; BP diastolic 27–100; PULSE 81–124; RESP 12–27; TEMP 36.4–38.1; O2SAT 58–99; BMI 29.2
[2025-02-08] MEDS: 0.9 % Sodium Chloride Flush 3 ML SYRINGE IVFLUSH ×4 (00:02→20:54)
[2025-02-08] MEDS: Magnesium Hydrox/Alum Hydrox 30 ML ORAL.SUSP PO (01:32)
--- NOTE | 2025-02-08 06:34 | HE.PHANOTE ---
Addendum entered by Renard Larkin, PharmD 02/08/25 06:38: patient had 14 take home bottles provided by the clinic. Original Note: RE: METHADONE Methadone confirmation received. Saray from [facility] in [place] verified methadone dose of 98 mg last taken on 02/02/2025 @0852
[2025-02-08 07:53] LABS: Hematocrit 34.9 % (42.0-52.0); Hemoglobin 11.6 g/dl (14.0-18.0); Mean Corpuscular HGB Conc 33.2 g/dl (31.0-36.0); Mean Corpuscular Hemoglobin 26.6 pg (27.0-33.0); Mean Corpuscular Volume 80.0 fL (80.0-98.0); NRBC Abs Auto 0.000 X10*3/uL (0.0-0.012); NRBC Pct Auto 0.0 /100WBC (0.0-0.2); Platelet Count 416 X10*3/uL (160-400); Red Blood Count 4.36 X10*6/uL (4.60-5.80); White Blood Count 17.2 X10*3/uL (4.8-10.8)
[2025-02-08 08:10] LABS: Albumin Level 4.2 g/dL (3.5-5.0); Anion Gap 19 (12-20); Blood Urea Nitrogen 18 mg/dL (9-16); Calcium 8.9 mg/dL (8.4-10.2); Carbon Dioxide 23 mmol/L (22-29); Chloride 99 mmol/L (96-108); Creatinine Clr Calc Pharmacy 196.2; Estimated Glomerular Filt Rate > 60; Magnesium 2.4 mg/dL (1.6-2.6); Potassium 3.7 mmol/L (3.3-5.1); Sodium 137 mmol/L (135-145)
[2025-02-08] MEDS: Furosemide 20 MG/2 ML VIAL IVPUSH ×2 (08:29→18:30)
[2025-02-08 08:30] LABS: Band Neutrophils Percent 3 % (3-5); Eosinophils Absolute Manual 0.3 X10*3/uL (0.0-0.4); Eosinophils Percent Manual 2 % (0-4); Lymphocytes Absolute Manual 1.9 X10*3/uL (1.2-4.9); Lymphocytes Percent Manual 11 % (20-40); Metamyelocytes Absolute 0.3 X10*3/uL; Metamyelocytes Percent 2 %; Monocytes Absolute Manual 0.3 X10*3/uL (0.1-1.2); Monocytes Percent Manual 2 % (2-11); Neutrophils Absolute Manual 14.3 X10*3/uL (2.0-8.3); Neutrophils Percent Manual 80 % (45-73)
[2025-02-08] MEDS: methADONE HCl 20 MG/2 ML ORAL.CONC 75 MG PO (08:30)
[2025-02-08 08:31] LABS: Hypersegmented Neutrophils PRESENT; Polychromasia 1+ (0-2) /OIF; RBC Morphology NOTED
--- NOTE | 2025-02-08 12:08 | HE.PHANOTE ---
RE: VANCO Trough returned @10.2. Increasing dose to 1250 mg Q8H with predicted AUC 505 and trough 14.9. Renal function is stable. Next trough due 02/09 @1100. Will continue to monitor.
--- NOTE | 2025-02-08 13:47 | MHC.SL.SWA ---
Speech Pathologist Impression: Missing some dentition, oral dysphagia minimal Risk of Aspiration Due to: Recent extubation Dysphasia Diet Status: Recc REGULAR diet with THIN liquids, straws ok. Assist pt with tray set up as needed. CIGARETTE TIPPER to followup if indicated. Liquid Consistency and Strategies for Safe Swallow: Liquid Intake Recommendation: Thin Liquid Intake Strategies: Solid Food Consistency: Dietary Recommendations: Regular Additional Modifications to Solid Foods: Oral Medication Intake: Whole with Liquid Please contact the pharmacy regarding appropriate crushable or liquid drug formulations that are available whenever modified delivery is recommended. Compensatory Strategies and Precautions to be Taken for Safe Swallow: Supervision While Eating and Drinking for Safe Swallow: Tray Set Up Foods to Avoid: Swallowing Recommended Treatments: Recommendation for Speech: NA:Typical Evaluation Comment: Pt sitting upright in bed, feeding himself lunch. Pt was placed on NDD2 diet with thin liquids, pt expressed his dislike for downgraded diet. Pt is missing some natural dentition but able to chew solids by taking small amounts and alternating consistencies. No overt s/s of aspiration with solids and thins by straw sip. Recc regular diet, thin liquids, assist with tray set up d/t UE weakness. RN consulted, pt taking meds whole with liquid, no issues. MD notified via secure text, CIGARETTE TIPPER to follow-up x1. Frequency/Duration: Follow up x1 if indicated Date Range for Service Req: Timeline to reassess: Traffic Control Technician Clinican/Clinical Fellow: No Supervisory Statement: I have reviewed and agree with the student/clinical fellow's documentation: N/A Speech Language Pathologist: Allegra Obando M.S., CCC-CIGARETTE TIPPER
--- NOTE | 2025-02-08 16:55 | HO.PM.IMPN ---
Subjective Subjective Date of Service: 02/08/25 Interval History: Patient is extremely appreciative of the care that we have delivered to him during his stay at [facility] - specifically medical ICU. He has no new complaints today. Mildly tremulous today. Communicative, no hallucinations or confabulation Suffered with some urinary retention - monitoring closely and encouraging resumption of normal bodily functions Review of Systems Review of Systems: Yes all other systems are reviewed and are negative Physical Exam Exam: Exam: General: A&O x3, oriented to time place person and situation, comfortable, no pain - mildly tremulous with movement Cardiac: S1, S2 auscultated with no S3/4, no MRG. Well perfused. Respiratory: Normal breath sounds auscultated throughout all lung zones, without wheezing, rales. Normal rate. GI/ : No abdominal pain on palpation, no masses or distentions. Some fullness on palpation appreciated by patient MSK: Normal ambulation without pain at bony prominences or musculature Neurological: Normal neurological examination on overview, without obvious CN II-XII abnormalities. Vital Signs: Vital Signs: Last Vital Signs Temp 98.9 F 02/08/25 14:59 Pulse 102 H 02/08/25 14:59 Resp 18 02/08/25 14:59 BP 140/100 H 02/08/25 14:59 Pulse Ox 95 02/08/25 14:59 O2 Del Method Nasal Cannula 02/08/25 14:59 O2 Flow Rate 3 02/08/25 14:59 FiO2 60 02/07/25 12:00 BMI result Body Mass Index 29.2 Objective Data Active Medications Albuterol/Ipratropium (Albuterol/Iprat 2.5/0.5mg 3 Ml Ampul.Neb) 3 ml INHALE RQ4H WHILE AWAKE PRN PRN Reason: Wheezing Last Admin: 02/02/25 20:22 Dose: 3 ml Documented By: STEPHANIE Clonazepam (Clonazepam 1 Mg Tablet) 2 mg PO BID SILVER Enoxaparin Sodium (Enoxaparin Sodium 40 Mg/0.4 Ml Syringe) 40 mg SUBCUT Q24H SILVER Last Admin: 02/07/25 18:00 Dose: 40 mg Documented By: MARY Furosemide (Furosemide 20 Mg/2 Ml Vial) 20 mg IVPUSH BID@0900,1800 SILVER; Protocol Last Admin: 02/08/25 08:29 Dose: 20 mg Documented By: JESUS Hydromorphone HCl (Hydromorphone Hcl 2 Mg/Ml Vial) 2 mg IVPUSH Q2H PRN; Protocol PRN Reason: Pain, Severe (Pain Scale 7-10) Acetaminophen (Ofirmev) 1,000 mg in 100 mls @ 400 mls/hr IV Q6H PRN PRN Reason: Fever Last Infusion: 02/06/25 12:40 Dose: Infused Documented By: CANDIDA Levofloxacin (Levaquin) 750 mg in 150 mls @ 100 mls/hr IV Q24H [facility] Last Infusion: 02/08/25 10:17 Dose: Infused Documented By: JESUS Vancomycin HCl 1,250 mg/ (Sodium Chloride) 250 mls @ 166.667 mls/hr IV Q8H [facility] Last Infusion: 02/08/25 15:52 Dose: Infused Documented By: JESUS Methadone HCl (Methadone Hcl 20 Mg/2 Ml Oral.Conc) 98 mg PO DAILY@0800 [facility] Midazolam HCl (Midazolam Hcl 2 Mg/2 Ml Vial) 4 mg IVPUSH Q1H PRN PRN Reason: Ventilator synchrony Ondansetron HCl (Ondansetron Hcl 4 Mg/2 Ml Vial) 4 mg IVPUSH Q6H PRN PRN Reason: Nausea and Vomiting Last Admin: 02/08/25 05:10 Dose: 4 mg Documented By: BETY Pantoprazole Sodium (Pantoprazole Sodium 40 Mg/10 Ml Vial) 40 mg IVPUSH DAILY@0630 [facility] Last Admin: 02/08/25 05:53 Dose: 40 mg Documented By: FAUSTO Pharmacy Consult (Consult Rx Vancomycin Dosing) 1 each MISCELLANE DAILY PRN PRN Reason: Consult order Sodium Chloride (0.9 % Sodium Chloride Flush 3 Ml Syringe) 3 ml IVFLUSH QSHIFT [facility] Last Admin: 02/08/25 08:29 Dose: 3 ml Documented By: JESUS Labs 02/08/25 07:30 02/08/25 07:30 Labs: Laboratory Results - last 24 hr 02/08/25 02/08/25 07:30 11:28 MCV 80.0 MCH 26.6 L MCHC 33.2 RDW 14.1 Plt Count 416 H D MPV 9.4 Immature Gran % (Auto) Cancelled Neut % (Auto) Cancelled Lymph % (Auto) Cancelled [place] % (Auto) Cancelled Eos % (Auto) Cancelled Baso % (Auto) Cancelled Lymph # (Auto) Cancelled [place] # (Auto) Cancelled Eos # (Auto) Cancelled Baso # (Auto) Cancelled Abs Immat Gran (auto) Cancelled Absolute Neuts (auto) Cancelled Absolute Nucleated RBC 0.000 Nucleated RBC % (auto) 0.0 Neutrophils % (Manual) 80 H Band Neutrophils % 3 Lymphocytes % (Manual) 11 L Monocytes % (Manual) 2 Eosinophils % (Manual) 2 Metamyelocytes % 2 Abs Neuts (Manual) 14.3 H Lymphocytes # (Manual) 1.9 Monocytes # (Manual) 0.3 Eosinophils # (Manual) 0.3 Metamyelocytes # 0.3 Hypersegmented Neuts PRESENT Platelet Estimate NORMAL Plt Morphology Comment NORMAL RBC Morphology NOTED Polychromasia 1+ (0-2) Anion Gap 19 Estim Creat Clear Calc 196.2 Estimated GFR > 60 Random Glucose 126 H Calcium 8.9 Phosphorus 4.4 Magnesium 2.4 Albumin 4.2 Random Vancomycin 10.2 L Microbiology Microbiology Results: Microbiology 02/02/25 17:01 Blood Culture - Final Blood - Venous No growth after 5 days. 02/02/25 17:01 Blood Culture - Final Blood - Venous No growth after 5 days. Assessment and Plan (1) Major depressive disorder, recurrent, moderate: Status: Acute (2) Generalized anxiety disorder with panic attacks: Status: Acute (3) Sepsis: Status: Acute (4) Respiratory failure: Status: Acute (5) Acute respiratory failure with hypoxia: Status: Acute (6) ARDS (adult respiratory distress syndrome): Status: Acute (7) Polysubstance abuse: Status: Acute Plan 40-year-old male, with a background history of tobacco use, polysubstance abuse on methadone, presents to the hospital with shortness of breath, admitted with acute hypoxic respiratory failure 2/2 left lower lobe pneumonia (MRSA+ve), c/b sepsis and septic shock and intubation (02/02-02/07) in medical ICU developing moderate ARDS with superimposed polysubstance withdrawal off cocaine/heroin/benzos, transferred to medical floor 02/08/2025. Acute hypoxic respiratory failure Left lower lobe pneumonia MRSA +ve Moderate ARDS Septic shock S/p extubation 02/07 Required norepinephrine while in MICU for hypotension Hypoxic on presentation with leukocytosis and elevated lactic acid 2.9 Currently on vancomycin. Extubated 02/07, without difficulty. PLAN - last continue levofloxacin 750mg OD IV - continue vancomycin 1.25g Q8H - continue pulmonary toilet - continue furosemide 20 mg b.i.d. IV for ARDS - consider steroids Polysubstance abuse Opiate withdrawal Cocaine withdrawal Benzodiazepine withdrawal U tox +ve for cocaine, opioids, methadone, benzodiazepines in the emergency room While in MICU, required high doses of propofol, fentanyl, midazolam, dexmedetomidine - without achieving complete sedation. No seizure activity. PLAN - addiction medicine consultation placed - methadone 98 mg p.o. daily - COWS monitoring - clonazepam 2 mg p.o. b.i.d. - midazolam 4 mg IV push q.1 hour hourly as needed - hydromorphone 2 mg IV push q.2h hourly p.r.n. Tobacco use Nicotine replacement therapy can be offered to patient Urinary retention Retention of 500 cc of urine identified on bladder scan. Patient was encouraged to urinate, with good result. Monitor closely, straight cath only if necessary. GERD Pantoprazole QUALITY METRICS - VTE: Enoxaparin 40 mg SQ once daily - CODE STATUS: Full code - DIET: Regular Total time managing care of this patient today: 45 minutes. Quality Stroke Does the patient have a stroke diagnosis?: No VTE Prior VTE?: No VTE Risk Level:: Medical - moderate - high VTE Device Contraindication: N/A - Device Ordered VTE Drug Contraindication: N/A - Med Ordered
[2025-02-08 20:50] LABS: Glucose, Whole Blood 137 mg/dL (60-115)
[2025-02-08] MEDS: diazePAM 10 MG/2 ML CARTRIDGE 5 MG IVPUSH (21:02)
--- NOTE | 2025-02-08 23:03 | PM.EVENT ---
Event Note Date of Service: 02/08/25 Event Note: PULL UP HAND activated. Pt had tonic-clonic activity/seizure while using the toilet. On arrival the patient was making a snoring sound and was unresponsive. Pupils dilated but responsive. He was transferred to bed. Blood glucose stat was 137. VS stable. Head CT scan stat obtained and results pending as the patient has no history of seizures. Per history patient takes higher doses of Xanax. He has not gotten his nighttime clonazepam. I am suspecting that seizures are secondary to benzos withdrawal. Patient received Valium 5 mg IV stat and now post-ictal. Blood workup was ordered. Lactic acid came back elevated at 6.2. We are still awaiting for CBC and lytes. Time Spent With Patient Time: Total time managing care of this patient today ____ minutes.
[2025-02-08 23:29] LABS: MANUAL DIFF FLAG NO
[2025-02-08 23:36] LABS: Hematocrit 36.8 % (42.0-52.0); Hemoglobin 12.2 g/dl (14.0-18.0); Imm Gran Abs Auto 0.60 X10*3/uL (0.00-0.03); Imm Gran Pct Auto 3.9 % (0.0-0.4); Lymphocytes Absolute Auto 1.1 X10*3/uL (1.2-4.9); Mean Corpuscular HGB Conc 33.2 g/dl (31.0-36.0); Mean Corpuscular Hemoglobin 26.3 pg (27.0-33.0); Mean Corpuscular Volume 79.5 fL (80.0-98.0); NRBC Abs Auto 0.000 X10*3/uL (0.0-0.012); NRBC Pct Auto 0.0 /100WBC (0.0-0.2); Platelet Count 444 X10*3/uL (160-400); Red Blood Count 4.63 X10*6/uL (4.60-5.80); White Blood Count 15.2 X10*3/uL (4.8-10.8)
[2025-02-08 23:40] LABS: Reflex Lactate? Lactic Acid Added
--- NOTE | 2025-02-09 | EEG_ITS ---
Reason for Exam: Seizure Roomed Performed: 1st floor History: History from consult 40-year-old male, with a background history of tobacco use, polysubstance abuse on methadone, presents to the hospital with shortness of breath, admitted with acute hypoxic respiratory failure 2/2 left lower lobe pneumonia (MRSA+ve), c/b sepsis and septic shock and intubation (02/02-02/07) in medical ICU developing moderate ARDS with superimposed polysubstance withdrawal off cocaine/heroin/benzos, transferred to medical floor. Apparently he was on commode when he was noted to have a generalized convulsion. His vitals were stable and blood glucose was more than 100. He did not have any previous history of seizure. When I saw him, he was in the bed. Medication: albuterol, clonazepam, diazepam, enoxaprin, furosemide, hydromorphone, ofirmev, levaquin, mathadone Technical description: Photic stimulation: Completed Hyperventilation: Omitted Behavioral state: anxious, needed to be redirected State of Consciousness: awake Skull defect: no Sedation:no Handedness: Right Duration of study: 26 min 17 sec Description: This is a 16 channel EEG with an EKG lead. Patient is reported awake during the tracing. Background EEG rhythm is low amplitude fast with no obvious asymmetry or paroxysmal tendency. Photic stimulation does not produce any significant abnormality. Hyperventilation is not performed. Cardiac lead does not reveal any significant abnormality. No sharp wave spikes or paroxysmal tendency noted. Impression: Unremarkable EEG. [facility]
--- NOTE | 2025-02-09 | ECG_ITS ---
Test Reason : ?SVT Blood Pressure : */* mmHG Vent. Rate : 156 BPM Atrial Rate : 312 BPM P-R Int : * ms QRS Dur : 110 ms QT Int : 264 ms P-R-T Axes : 38 -58 46 degrees QTcB Int : 425 ms Atrial flutter with 2:1 A-V conduction Left anterior fascicular block Moderate voltage criteria for LVH, may be normal variant ( R in aVL , Carlo product ) Inferior infarct , age undetermined Abnormal ECG When compared with ECG of 02-Feb-2025 17:10, Atrial flutter has replaced Sinus rhythm Questionable change in QRS duration Inferior infarct is now Present Referred By: Padma Luna Electronically Signed By: Floyd Santa
[2025-02-09 00:01] LABS: Anion Gap 16 (12-20); Blood Urea Nitrogen 21 mg/dL (9-16); Calcium 9.4 mg/dL (8.4-10.2); Carbon Dioxide 26 mmol/L (22-29); Chloride 100 mmol/L (96-108); Creatinine Clr Calc Pharmacy 164.8; Estimated Glomerular Filt Rate > 60; Magnesium 2.8 mg/dL (1.6-2.6); Potassium 3.2 mmol/L (3.3-5.1); Sodium 139 mmol/L (135-145)
--- NOTE | 2025-02-09 03:04 | PC.NURSE ---
RN entered pt room for routine PM assessment and medication administration. Pt asked to ambulate to the bathroom first. 2 RNs ambulated staff to bathroom, with assigned RN standing by door while pt attempted to urinate sitting down on toilet. Pt began having seizure, with audible grunting sounds and full-body jerking, with pt unconscious and unresponsive to rousing. RN physically supported pt on toilet and called to COMMUNICATIONS OFFICER for a rapid response. Vitals and POC taken while pt still on toilet. O2 sat of 58%, pt suctioned and placed on non-rebreather. MD to bedside. Wheelchair brought into bathroom, with 4 staff members transferring pt from toilet to wheelchair and then back to bed. Pt given IVP of diazepam. Pt drowsy but regained consciousness. Pt weaned to oxymask. New orders placed by .
[2025-02-09 04:00] VITALS: BP 166/79; PULSE 78; RESP 16; TEMP 37.1; O2SAT 96
[2025-02-09 06:00] VITALS: BMI 33.9
[2025-02-09 07:27] LABS: Hematocrit 36.7 % (42.0-52.0); Hemoglobin 11.9 g/dl (14.0-18.0); Imm Gran Abs Auto 0.42 X10*3/uL (0.00-0.03); Imm Gran Pct Auto 3.3 % (0.0-0.4); Lymphocytes Absolute Auto 1.1 X10*3/uL (1.2-4.9); Mean Corpuscular HGB Conc 32.4 g/dl (31.0-36.0); Mean Corpuscular Hemoglobin 26.1 pg (27.0-33.0); Mean Corpuscular Volume 80.5 fL (80.0-98.0); NRBC Abs Auto 0.000 X10*3/uL (0.0-0.012); NRBC Pct Auto 0.0 /100WBC (0.0-0.2); Red Blood Count 4.56 X10*6/uL (4.60-5.80)
[2025-02-09 07:28] LABS: Platelet Count 389 X10*3/uL (160-400); White Blood Count 12.6 X10*3/uL (4.8-10.8)
[2025-02-09 07:41] LABS: Anion Gap 19 (12-20); Blood Urea Nitrogen 24 mg/dL (9-16); Calcium 9.3 mg/dL (8.4-10.2); Carbon Dioxide 21 mmol/L (22-29); Chloride 106 mmol/L (96-108); Creatinine Clr Calc Pharmacy 184.2; Estimated Glomerular Filt Rate > 60; Magnesium 2.8 mg/dL (1.6-2.6); Potassium 4.3 mmol/L (3.3-5.1); Sodium 142 mmol/L (135-145)
[2025-02-09] MEDS: diazePAM 10 MG/2 ML CARTRIDGE 5 MG IVPUSH ×3 (07:44→08:19)
[2025-02-09] MEDS: levETIRAcetam in NaCl (iso-os) 1,000 MG/100 ML PIGGYBACK 400 MG IV (07:47)
[2025-02-09 07:48] LABS: Glucose, Whole Blood 139 mg/dL (60-115)
[2025-02-09 08:00] VITALS: BP 130/70; PULSE 92; RESP 20; TEMP 36.7; O2SAT 93
[2025-02-09] MEDS: diazePAM 10 MG/2 ML CARTRIDGE IVPUSH (08:19)
[2025-02-09] MEDS: methADONE HCl 20 MG/2 ML ORAL.CONC 98 MG PO (08:38)
[2025-02-09 08:59] LABS: Troponin-I High Sensitivity 9.7 ng/L (<3.5-35.0)
--- NOTE | 2025-02-09 09:01 | P.EN_ITS ---
Event Note Date of Service: 02/09/25 Event Note: Patient had an AIRCRAFT GENERAL REPAIR MECHANIC x2 this morning, as soon as the shift started. One was 4 witnessed tonic-clonic seizures and another 4 a flutter-please review the event notes for the detailed response 2nd AIRCRAFT GENERAL REPAIR MECHANIC was called in another hour at around 8am, for tachycardia an EKG rev ealed atrial flutter Heart rate was in the 170s for which he received Lopressor 5 mg IVP x2 Given we likely believe this was reactive in the setting of benzo withdrawal seizures, we have not initiated him on antiarrhythmics Patient also received methadone dose and this seemed to have helped as well and his heart rate seems to have improved Troponin negative, EKG without any acute changes Cardiology consulted TTE ordered IV access was also difficult given poor venous access in the setting of IVDU Thankfully patient remained hemodynamically stable and his post ictal phase continued to improve Patient passed swallow eval and diet resumed Addiction Medicine consulted-starting him on IV Valium taper and discontinuing clonazepam sublingual We will need a long slow taper as he has high tolerance and was on a lot of sedative medications in the ICU without actually being sedated-per the ICU at the time of AIRCRAFT GENERAL REPAIR MECHANIC-the patient has been awake and writing while being on for sedative drips in the ICU. Assessment-benzo withdrawal seizures Plan Continue Valium to IV taper-slow but prolonged (Ativan in short supply) Initiated Keppra 500 p.o. b.i.d. Addiction Medicine Neurology consulted Follow-up EEG was done this afternoon MRI without contrast to look for intracranial pathology - CT scan done last night was without any acute pathology Seizure precaution Aspiration precautions Fall precautions Continue rate control medications given that the patient likely responded to initiating IV benzos for his withdrawal seizures TTE ordered for atrial flutter-likely in the setting of acute benzo withdrawal Maintain hypoglycemia protocol Continue cows protocol We will continue vancomycin-no new aspiration noted, can deescalate if improving in a day or 2 and switch him to doxycycline Patient does not recall substance use - per family-mother and brother his [id number] procured and supplied and he is unaware of substances Mentioned the tox screen to the family Denies any SI HI Fluids-Can deescalate/stop if oral intake adequate PTOT prior to discharge This note is constructed using voice recognition software. While every effort has been made to ensure accuracy, mimeograph operator errors may have been included. Disposition: This patient requires ongoing hospitalization due to the acute and severe manifestations of benzodiazepine withdrawal, including multiple witnessed tonic-clonic seizures and new-onset atrial flutter, both of which necessitated rapid response team interventions. He remains at high risk for recurrent seizures and cardiac arrhythmias, requiring close neurological and cardiac monitoring, IV benzodiazepine titration, and multidisciplinary management involving Neurology, Cardiology, and Addiction Medicine. Additionally, he has a history of intravenous drug use with difficult IV access, is being treated for possible MRSA pneumonia, and requires ongoing assessment for aspiration and fall risk. His clinical course is further complicated by high benzodiazepine tolerance, necessitating a slow and prolonged IV diazepam taper, and ongoing evaluation for other potential causes of seizures. Given the complexity of his withdrawal management, need for continuous monitoring, and risk of further life-threatening events, inpatient care remains medically necessary at this time. Time Spent With Patient Time: Total time managing care of this patient today ____ minutes.
--- NOTE | 2025-02-09 09:01 | P.EN_ITS ---
Event Note Date of Service: 02/09/25 Event Note: Patient had an EXCHANGE ARCHITECT x2 this morning, as soon as the shift started. One was 4 witnessed tonic-clonic seizures and another 4 a flutter-please review the event notes for the detailed response First EXCHANGE ARCHITECT was at 07:15am, patient likely was de-escalated from ICU and has been and active IVDU and was on multiple sedative drips without actually being sedated in the ICU and had a witnessed seizure overnight for which he was placed NPO and was given Klonopin sublingual. Patient again had another witnessed tonic-clonic seizures, which I likely believe is attributed to his benzo withdrawal given his high tolerance and needing higher doses of benzodiazepines. Patient was postictal at the time of my examination in the 1st EXCHANGE ARCHITECT, hemodynamically appeared to be stable, however he definitely was postictal. Patient had Imaging overnight with his 1st tonic clonic seizure and it was unremarkable. EEG and neurology consulted Patient received Keppra 1+ 1 g loading dose and maintainence dose of 500mg po bid initiated starting tonight, Valium 10 mg x 2 Pharmacy and Addiction Medicine consulted for slow taper and titration of his benzodiazepines Mother and brother at bedside updated in person Electrolytes checked and were WNL Lactic acid was likely in the setting of seizures which had normalized subsequently Patient is on vancomycin for possible MRSA pneumonia (possible aspiration POA) 2nd EXCHANGE ARCHITECT was called in another hour at around 8am, for tachycardia an EKG revealed atrial flutter Heart rate was in the 170s for which he received Lopressor 5 mg IVP x2 Given we likely believe this was reactive in the setting of benzo withdrawal seizures, we have not initiated him on antiarrhythmics Patient also received methadone dose and this seemed to have helped as well and his heart rate seems to have improved Troponin negative, EKG without any acute changes Cardiology consulted TTE ordered IV access was also difficult given poor venous access in the setting of IVDU Thankfully patient remained hemodynamically stable and his post ictal phase continued to improve Patient passed swallow eval and diet resumed Addiction Medicine consulted-starting him on IV Valium taper and discontinuing clonazepam sublingual We will need a long slow taper as he has high tolerance and was on a lot of sedative medications in the ICU without actually being sedated-per the ICU at the time of EXCHANGE ARCHITECT-the patient has been awake and writing while being on for sedative drips in the ICU. Assessment-benzo withdrawal seizures Plan Continue Valium to IV taper-slow but prolonged (Ativan in short supply) Initiated Keppra 500 p.o. b.i.d. Addiction Medicine Neurology consulted Follow-up EEG was done this afternoon MRI without contrast to look for intracranial pathology - CT scan done last night was without any acute pathology Seizure precaution Aspiration precautions Fall precautions Continue rate control medications given that the patient likely responded to initiating IV benzos for his withdrawal seizures TTE ordered for atrial flutter-likely in the setting of acute benzo withdrawal Maintain hypoglycemia protocol Continue cows protocol We will continue vancomycin-no new aspiration noted, can deescalate if improving in a day or 2 and switch him to doxycycline Patient does not recall substance use - per family-mother and brother his [id number] procured and supplied and he is unaware of substances Mentioned the tox screen to the family Denies any SI HI Fluids-Can deescalate/stop if oral intake adequate PTOT prior to discharge This note is constructed using voice recognition software. While every effort has been made to ensure accuracy, fruit sorter errors may have been included. Disposition: This patient requires ongoing hospitalization due to the acute and severe manifestations of benzodiazepine withdrawal, including multiple witnessed tonic-clonic seizures and new-onset atrial flutter, both of which necessitated rapid response team interventions. He remains at high risk for recurrent seizures and cardiac arrhythmias, requiring close neurological and cardiac monitoring, IV benzodiazepine titration, and multidisciplinary management involving Neurology, Cardiology, and Addiction Medicine. Additionally, he has a history of intravenous drug use with difficult IV access, is being treated for possible MRSA pneumonia, and requires ongoing assessment for aspiration and fall risk. His clinical course is further complicated by high benzodiazepine tolerance, necessitating a slow and prolonged IV diazepam taper, and ongoing evaluation for other potential causes of seizures. Given the complexity of his withdrawal management, need for continuous monit oring, and risk of further life-threatening events, inpatient care remains medically necessary at this time. Time Spent With Patient Time: Total time managing care of this patient today _108___ minutes including 2 service worker helper, talking to family and consulting subspeciality.
--- NOTE | 2025-02-09 09:05 | P.PNIM_ITS ---
Subjective Subjective Date of Service: 02/09/25 Interval History: Patient had an LOGISTICS PLANNER x2 this morning, as soon as the shift started. One was 4 witnessed tonic-clonic seizures and another 4 a flutter-please review the event notes for the detailed response First LOGISTICS PLANNER was at 07:15am, patient likely was de-escalated from ICU and has been and active IVDU and was on multiple sedative drips without actually being sedated in the ICU and had a witnessed seizure overnight for which he was placed NPO and was given Klonopin sublingual. Patient again had another witnessed tonic-clonic seizures, which I likely believe is attributed to his benzo withdrawal given his high tolerance and needing higher doses of benzodiazepines. Patient was postictal at the time of my examination in the 1st LOGISTICS PLANNER, hemodynamically appeared to be stable, however he definitely was postictal. Patient had Imaging overnight with his 1st tonic clonic seizure and it was unremarkable. EEG and neurology consulted Patient received Keppra 1+ 1 g loading dose and maintainence dose of 500mg po bid initiated starting tonight, Valium 10 mg x 2 Pharmacy and Addiction Medicine consulted for slow taper and titration of his benzodiazepines Mother and brother at bedside updated in person Electrolytes checked and were WNL Lactic acid was likely in the setting of seizures which had normalized subsequently Patient is on vancomycin for possible MRSA pneumonia (possible aspiration POA) 2nd LOGISTICS PLANNER was called in another hour at around 8am, for tachycardia an EKG revealed atrial flutter Heart rate was in the 170s for which he received Lopressor 5 mg IVP x2 Given we likely believe this was reactive in the setting of benzo withdrawal seizures, we have not initiated him on antiarrhythmics Patient also received methadone dose and this seemed to have helped as well and his heart rate seems to have improved Troponin negative, EKG without any acute changes Cardiology consulted TTE ordered IV access was also difficult given poor venous access in the setting of IVDU Thankfully patient remained hemodynamically stable and his post ictal phase continued to improve Patient passed swallow eval and diet resumed Addiction Medicine consulted-starting him on IV Valium taper and discontinuing clonazepam sublingual We will need a long slow taper as he has high tolerance and was on a lot of sedative medications in the ICU without actually being sedated-per the ICU at the time of LOGISTICS PLANNER-the patient has been awake and writing while being on for sedative drips in the ICU. Review of Systems Review of Systems: Yes all other systems are reviewed and are negative, Unobtainable due to mental condition and Unobtainable due to mental status Physical Exam 2 Exam: Exam: General: AOx 0- postictal phase Resp: Mild CVS: Tachycardia,regularly irregular Neuro: Limited given postictal phase Psych: Mild slurring of the speech, likely postictal phase Vital Signs: Vital Signs: Last Vital Signs Temp 98.7 F 02/09/25 04:00 Pulse 78 02/09/25 04:00 Resp 16 02/09/25 04:00 BP 166/79 H 02/09/25 04:00 Pulse Ox 96 02/09/25 04:00 O2 Del Method Nasal Cannula 02/09/25 04:00 O2 Flow Rate 5 02/09/25 04:00 FiO2 60 02/07/25 12:00 Oxygen Flow Rate 4 02/08/25 21:55 BMI result Body Mass Index 33.9 Objective Data Active Medications Albuterol/Ipratropium (Albuterol/Iprat 2.5/0.5mg 3 Ml Ampul.Neb) 3 ml INHALE RQ4H WHILE AWAKE PRN PRN Reason: Wheezing Last Admin: 02/02/25 20:22 Dose: 3 ml Documented By: STEPHANIE Clonazepam (Clonazepam Odt 0.5 Mg Tab.Rapdis) 2 mg PO TID SILVER Clonidine HCl (Clonidine Hcl 0.2 Mg Tablet) 0.2 mg PO BEDTIME PRN; Protocol PRN Reason: Anxiety Diazepam (Diazepam 10 Mg/2 Ml Cartridge) 10 mg IVPUSH Q4H PRN PRN Reason: WITHDRAWAL Enoxaparin Sodium (Enoxaparin Sodium 40 Mg/0.4 Ml Syringe) 40 mg SUBCUT Q24H [facility] Last Admin: 02/08/25 18:30 Dose: 40 mg Documented By: JESUS Furosemide (Furosemide 20 Mg/2 Ml Vial) 20 mg IVPUSH BID@0900,1800 [facility]; Protocol Last Admin: 02/08/25 18:30 Dose: 20 mg Documented By: JESUS Hydromorphone HCl (Hydromorphone Hcl 2 Mg/Ml Vial) 2 mg IVPUSH Q2H PRN; Protocol PRN Reason: Pain, Severe (Pain Scale 7-10) Acetaminophen (Ofirmev) 1,000 mg in 100 mls @ 400 mls/hr IV Q6H PRN PRN Reason: Fever Last Infusion: 02/06/25 12:40 Dose: Infused Documented By: CANDIDA Levofloxacin (Levaquin) 750 mg in 150 mls @ 100 mls/hr IV Q24H [facility] Last Infusion: 02/08/25 10:17 Dose: Infused Documented By: JESUS Vancomycin HCl 1,250 mg/ (Sodium Chloride) 250 mls @ 166.667 mls/hr IV Q8H [facility] Last Infusion: 02/09/25 06:30 Dose: Infused Documented By: VIRGIL Methadone HCl (Methadone Hcl 20 Mg/2 Ml Oral.Conc) 98 mg PO DAILY@0800 [facility] Last Admin: 02/09/25 08:38 Dose: 98 mg Documented By: JENNIFER Co-signed By: GERRY Midazolam HCl (Midazolam Hcl 2 Mg/2 Ml Vial) 4 mg IVPUSH Q1H PRN PRN Reason: Ventilator synchrony Ondansetron HCl (Ondansetron Hcl 4 Mg/2 Ml Vial) 4 mg IVPUSH Q6H PRN PRN Reason: Nausea and Vomiting Last Admin: 02/08/25 05:10 Dose: 4 mg Documented By: BETY Pantoprazole Sodium (Pantoprazole Sodium 40 Mg/10 Ml Vial) 40 mg IVPUSH DAILY@0630 [facility] Last Admin: 02/09/25 06:10 Dose: 40 mg Documented By: VIRGIL Pharmacy Consult (Consult Rx Vancomycin Dosing) 1 each MISCELLANE DAILY PRN PRN Reason: Consult order Sodium Chloride (0.9 % Sodium Chloride Flush 3 Ml Syringe) 3 ml IVFLUSH QSHIFT [facility] Last Admin: 02/08/25 20:54 Dose: 3 ml Documented By: VIRGIL Labs 02/09/25 06:59 02/09/25 06:59 Labs: Laboratory Results - last 24 hr 02/08/25 02/08/25 02/08/25 11:28 20:47 21:37 MCV MCH MCHC RDW Plt Count MPV Immature Gran % (Auto) Neut % (Auto) Lymph % (Auto) Douglas % (Auto) Eos % (Auto) Baso % (Auto) Lymph # (Auto) Douglas # (Auto) Eos # (Auto) Baso # (Auto) Abs Immat Gran (auto) Absolute Neuts (auto) Absolute Nucleated RBC Nucleated RBC % (auto) Anion Gap Estim Creat Clear Calc Estimated GFR POC Glucose 137 H Random Glucose Lactic Acid 6.2 H* Calcium Phosphorus Magnesium Troponin I High Sens Random Vancomycin 10.2 L 02/08/25 02/09/25 02/09/25 23:24 06:59 07:44 MCV 79.5 L 80.5 MCH 26.3 L 26.1 L MCHC 33.2 32.4 RDW 14.3 14.4 Plt Count 444 H 389 MPV 8.7 L 9.9 Immature Gran % (Auto) 3.9 H 3.3 H Neut % (Auto) 84.5 H 80.3 H Lymph % (Auto) 7.5 L 8.9 L Douglas % (Auto) 3.4 6.3 Eos % (Auto) 0.3 0.6 Baso % (Auto) 0.4 0.6 Lymph # (Auto) 1.1 L 1.1 L Douglas # (Auto) 0.5 0.8 Eos # (Auto) 0.1 0.1 Baso # (Auto) 0.1 0.1 Abs Immat Gran (auto) 0.60 H 0.42 H Absolute Neuts (auto) 12.8 H 10.1 H Absolute Nucleated RBC 0.000 0.000 Nucleated RBC % (auto) 0.0 0.0 Anion Gap 16 19 Estim Creat Clear Calc 164.8 184.2 Estimated GFR > 60 > 60 POC Glucose 139 H Random Glucose 160 H 136 H Lactic Acid 1.0 Calcium 9.4 9.3 Phosphorus 3.7 Magnesium 2.8 H 2.8 H Troponin I High Sens Random Vancomycin 02/09/25 08:24 MCV MCH MCHC RDW Plt Count MPV Immature Gran % (Auto) Neut % (Auto) Lymph % (Auto) Douglas % (Auto) Eos % (Auto) Baso % (Auto) Lymph # (Auto) Douglas # (Auto) Eos # (Auto) Baso # (Auto) Abs Immat Gran (auto) Absolute Neuts (auto) Absolute Nucleated RBC Nucleated RBC % (auto) Anion Gap Estim Creat Clear Calc Estimated GFR POC Glucose Random Glucose Lactic Acid 4.9 H* Calcium Phosphorus Magnesium Troponin I High Sens 9.7 D Random Vancomycin Assessment and Plan (1) Acute respiratory failure with hypoxia: Status: Acute Plan 40-year-old male, with a background history of tobacco use, polysubstance abuse on methadone, presents to the hospital with shortness of breath, admitted with acute hypoxic respiratory failure 2/2 left lower lobe pneumonia (MRSA+ve), c/b sepsis and septic shock and intubation (02/02-02/07) in medical ICU developing moderate ARDS with superimposed polysubstance withdrawal off cocaine/heroin/benzos, transferred to medical floor 02/08/2025. Course complicated by benzo withdrawal seizures X2 requiring IV Valium prolonged taper. BENZO WITHDRAWAL SEIZURES had an LOGISTICS PLANNER x2 this morning, as soon as the shift started. One was 4 witnessed tonic-clonic seizures and another 4 a flutter-please review the event notes for the detailed response 2nd LOGISTICS PLANNER was called in another hour at around 8am, for tachycardia an EKG revealed atrial flutter Heart rate was in the 170s for which he received Lopressor 5 mg IVP x2 Given we likely believe this was reactive in the setting of benzo withdrawal seizures, we have not initiated him on antiarrhythmics Patient also received methadone dose and this seemed to have helped as well and his heart rate seems to have improved Troponin negative, EKG without any acute changes Cardiology consulted TTE ordered IV access was also difficult given poor venous access in the setting of IVDU Thankfully patient remained hemodynamically stable and his post ictal phase continued to improve Patient passed swallow eval and diet resumed Addiction Medicine consulted-starting him on IV Valium taper and discontinuing clonazepam sublingual We will need a long slow taper as he has high tolerance and was on a lot of sedative medications in the ICU without actually being sedated-per the ICU at the time of LOGISTICS PLANNER-the patient has been awake and writing while being on for sedative drips in the ICU. Assessment-benzo withdrawal seizures Plan Continue Valium to IV taper-slow but prolonged (Ativan in short supply) Initiated Keppra 500 p.o. b.i.d. Addiction Medicine Neurology consulted Follow-up EEG was done this afternoon MRI without contrast to look for intracranial pathology - CT scan done last night was without any acute pathology Seizure precaution Aspiration precautions Fall precautions Continue rate control medications given that the patient likely responded to initiating IV benzos for his withdrawal seizures TTE ordered for atrial flutter-likely in the setting of acute benzo withdrawal Maintain hypoglycemia protocol Continue cows protocol We will continue vancomycin-no new aspiration noted, can deescalate if improving in a day or 2 and switch him to doxycycline Patient does not recall substance use - per family-mother and brother his [id number] procured and supplied and he is unaware of substances Mentioned the tox screen to the family Denies any SI HI Fluids-Can deescalate/stop if oral intake adequate PTOT prior to discharge AHRF requiring pressors and intubation from 02/02/2025 to 02/07/2025, Course complicated by moderate ARDS 2/2 LLL MRSA pneumonia--not hypoxic on room air currently Patient likely developed acute hypoxic respiratory failure in the setting of aspiration pneumonia and MRSA in the setting of IVDU-history is mainly from his mother and brother, patient does not recall the exact events of ingestion however the tox screen was positive for cocaine, opiates, methadone, benzos during this admission. Patient was intubated and extubated, requiring pressor support and was transitioned to the floors on 02/08/2025. During the 2 flakeboard line tender, patient likely had benzo withdrawal seizures given he was on for sedative drips in the ICU and he was not even sedated, not in distress. Given IVDU and high benzo tolerance, patient likely developed benzo withdrawal seizures. His venous lactate and witnessed seizures and likely etiology suggest it is likely benzo withdrawal. Plan Patient has been on vancomycin and levofloxacin since admission-we will likely deescalate in a day or 2 Continue fluids Venous lactate was likely in the setting of seizures-normalized on the 2nd lab draw Polysubstance abuse Opiate withdrawal Cocaine withdrawal Benzodiazepine withdrawal U tox +ve for cocaine, opioids, methadone, benzodiazepines in the emergency room While in MICU, required high doses of propofol, fentanyl, midazolam, dexmedetomidine - without achieving complete sedation. PLAN - addiction medicine consultation placed - methadone 98 mg p.o. daily - COWS monitoring - clonazepam 2 mg p.o. b.i.d. - midazolam 4 mg IV push q.1 hour hourly as needed - hydromorphone 2 mg IV push q.2h hourly p.r.n. Tobacco use Nicotine replacement therapy can be offered to patient Urinary retention Retention of 500 cc of urine identified on bladder scan. Patient was encouraged to urinate, with good result. Monitor closely, straight cath only if necessary. GERD Pantoprazole DVT prophylaxis with Lovenox This note is constructed using voice recognition software. While every effort has been made to ensure accuracy, applications chemist errors may have been included. Disposition: This patient requires ongoing hospitalization due to the acute and severe manifestations of benzodiazepine withdrawal, including multiple witnessed tonic-clonic seizures and new-onset atrial flutter, both of which necessitated rapid response team interventions. He remains at high risk for recurrent seizures and cardiac arrhythmias, requiring close neurological and cardiac monitoring, IV benzodiazepine titration, and multidisciplinary management involving Neurology, Cardiology, and Addiction Medicine. Additionally, he has a history of intravenous drug use with difficult IV access, is being treated for possible MRSA pneumonia, and requires ongoing assessment for aspiration and fall risk. His clinical course is further complicated by high benzodiazepine tolerance, necessitating a slow and prolonged IV diazepam taper, and ongoing evaluation for other potential causes of seizures. Given the complexity of his withdrawal management, need for continuous monitoring, and risk of further life-threatening events, inpatient care remains medically necessary at this time. Total time managing care of this patient today: 103 minutes. Quality Stroke Does the patient have a stroke diagnosis?: No VTE Prior VTE?: No VTE Risk Level:: Medical - moderate - high VTE Device Contraindication: N/A - Device Ordered VTE Drug Contraindication: N/A - Med Ordered
[2025-02-09] MEDS: Lactated Ringers 1,000 ML 999 ML IV (09:25)
[2025-02-09] MEDS: Furosemide 20 MG/2 ML VIAL IVPUSH ×2 (09:26→17:33)
--- NOTE | 2025-02-09 09:48 | PM.NEUROCN ---
History of Present Illness Data of Consult Service Date: 02/09/25 Primary Care Provider: Aiden Robins MD HPI Reason for consult: Encephalopathy 40-year-old male, with a background history of tobacco use, polysubstance abuse on methadone, presents to the hospital with shortness of breath, admitted with acute hypoxic respiratory failure 2/2 left lower lobe pneumonia (MRSA+ve), c/b sepsis and septic shock and intubation (02/02-02/07) in medical ICU developing moderate ARDS with superimposed polysubstance withdrawal off cocaine/heroin/benzos, transferred to medical floor. Apparently he was on commode when he was noted to have a generalized convulsion. His vitals were stable and blood glucose was more than 100. He did not have any previous history of seizure. When I saw him, he was in the bed. Review of Systems Review of Systems: As per HPI. [facility] Past Medical History Medical History (Updated 02/09/25 @ 09:52 by Laurent Hoff MD) [facility]DC use of drug Chronic lower back pain Family History Family History Mother Mental health disorder Surgical History Surgical History No pertinent past surgical history Social History Social History Household Members: Family Housing: Unknown / Unable to assess Do you presently have visiting nurse or other home services: No Alcohol intake: never Patient Tobacco Use Status: Current everyday Tobacco user Tobacco use type: Cigarette Cigarette Packs Per Day: 0.5 Cigarettes Per Day: 7 Smoked in Last 30 Days: Yes e-Cigarette/Vaping Use: Former Use Second Hand Smoke Exposure: Yes Use of substances other than those prescribed or required for medical reasons: No Currently Displaying Signs/Symptoms of Drug Intoxication Withdrawal: No Advance Directives: No Advance Directives Information Provided: No Do you have a plan to hurt others: No Plan Recently lost weight without trying: Unsure How much weight loss: Unsure Nutrition Risks: On aspiration precautions Poor oral hygiene: No service: No Current occupational status: employed 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 Cognitive needs: No Hearing needs: No Vision needs: No Meds Allergies Allergy/AdvReac Type Severity Reaction Status Date / Time No Known Allergies Allergy Verified 02/02/25 16:51 Active Medications: Current Medications Albuterol/Ipratropium (Albuterol/Iprat 2.5/0.5mg 3 Ml Ampul.Neb) 3 ml INHALE RQ4H WHILE AWAKE PRN PRN Reason: Wheezing Last Admin: 02/02/25 20:22 Dose: 3 ml Clonazepam (Clonazepam Odt 0.5 Mg Tab.Rapdis) 2 mg PO TID SILVER Clonidine HCl (Clonidine Hcl 0.2 Mg Tablet) 0.2 mg PO BEDTIME PRN; Protocol PRN Reason: Anxiety Diazepam (Diazepam 10 Mg/2 Ml Cartridge) 10 mg IVPUSH Q4H PRN PRN Reason: WITHDRAWAL Enoxaparin Sodium (Enoxaparin Sodium 40 Mg/0.4 Ml Syringe) 40 mg SUBCUT Q24H [facility] Last Admin: 02/08/25 18:30 Dose: 40 mg Furosemide (Furosemide 20 Mg/2 Ml Vial) 20 mg IVPUSH BID@0900,1800 [facility]; Protocol Last Admin: 02/09/25 09:26 Dose: 20 mg Hydromorphone HCl (Hydromorphone Hcl 2 Mg/Ml Vial) 2 mg IVPUSH Q2H PRN; Protocol PRN Reason: Pain, Severe (Pain Scale 7-10) Acetaminophen (Ofirmev) 1,000 mg in 100 mls @ 400 mls/hr IV Q6H PRN PRN Reason: Fever Last Infusion: 02/06/25 12:40 Dose: Infused Levofloxacin (Levaquin) 750 mg in 150 mls @ 100 mls/hr IV Q24H [facility] Last Admin: 02/09/25 09:26 Dose: 100 mls/hr Vancomycin HCl 1,250 mg/ (Sodium Chloride) 250 mls @ 166.667 mls/hr IV Q8H [facility] Last Infusion: 02/09/25 06:30 Dose: Infused Methadone HCl (Methadone Hcl 20 Mg/2 Ml Oral.Conc) 98 mg PO DAILY@0800 [facility] Last Admin: 02/09/25 08:38 Dose: 98 mg Ondansetron HCl (Ondansetron Hcl 4 Mg/2 Ml Vial) 4 mg IVPUSH Q6H PRN PRN Reason: Nausea and Vomiting Last Admin: 02/08/25 05:10 Dose: 4 mg Pantoprazole Sodium (Pantoprazole Sodium 40 Mg/10 Ml Vial) 40 mg IVPUSH DAILY@0630 [facility] Last Admin: 02/09/25 06:10 Dose: 40 mg Pharmacy Consult (Consult Rx Vancomycin Dosing) 1 each MISCELLANE DAILY PRN PRN Reason: Consult order Sodium Chloride (0.9 % Sodium Chloride Flush 3 Ml Syringe) 3 ml IVFLUSH QSHIFT [facility] Last Admin: 02/08/25 20:54 Dose: 3 ml Home Medications ?Medication ?Instructions ?Recorded ?Confirmed ?Last Taken ?Type aripiprazole 20 mg tablet 20 mg PO BEDTIME 02/02/25 02/03/25 02/02/25 History clonazepam 0.5 mg tablet 0.5 mg PO BID 02/02/25 02/03/25 02/02/25 History gabapentin 800 mg tablet 800 mg PO TID 02/02/25 02/03/25 02/02/25 History clonidine HCl 0.2 mg tablet 0.2 mg PO BEDTIME PRN Anxiety 02/03/25 02/03/25 Unknown History methadone 10 mg/mL oral 98 mg PO DAILY 02/03/25 02/07/25 02/02/25 History concentrate (Methadone Intensol) sertraline 100 mg tablet 200 mg PO DAILY 02/03/25 02/03/25 Unknown History Physical Exam Vital Signs: Vital Signs: Last Vital Signs Temp 98.7 F 02/09/25 04:00 Pulse 78 02/09/25 04:00 Resp 16 02/09/25 04:00 BP 166/79 H 02/09/25 04:00 Pulse Ox 96 02/09/25 04:00 O2 Del Method Nasal Cannula 02/09/25 04:00 O2 Flow Rate 5 02/09/25 04:00 FiO2 60 02/07/25 12:00 Oxygen Flow Rate 4 02/08/25 21:55 BMI result Body Mass Index 33.9 Neuro: Other: Mental Status: Alert and awake with normal spontaneity and fluency of speech. He knows where he is and he has following simple commands. Affect is flat. Cranial Nerves: CN II: Visual alcocer full to confrontation, visual acuity intact. CN III, IV, : Pupils equal, round, reactive to light and accommodation. Extraocular movements are normal. CN V: Facial sensation is normal. CN VII: Facial movements symmetrical. CN VIII: Hearing intact to bedside conversation is normal. CN IX, X: Palate elevates symmetrically. CN XI: Shoulder shrug and head turn symmetrical. CN XII: Tongue midline without atrophy or fasciculations. Deep tendon reflexes are 1 to 2+ with flexor plantars. Extrapyramidal: Full facial expressions and blinking. No rigidity. Movements are appropriate with no tremor or abnormality. Speech: Normal; no dysarthria or tremor. Results Labs 02/09/25 06:59 02/09/25 06:59 Labs: Short CBC 02/08/25 02/09/25 Range/Units 23:24 06:59 WBC 15.2 H 12.6 H (4.8-10.8) X10*3/uL Hgb 12.2 L 11.9 L (14.0-18.0) g/dl Hct 36.8 L 36.7 L (42.0-52.0) % Plt Count 444 H 389 (160-400) X10*3/uL BMP 02/08/25 02/09/25 23:24 06:59 Sodium 139 142 Potassium 3.2 L 4.3 D Chloride 100 106 Carbon Dioxide 26 21 L BUN 21 H 24 H Creatinine 0.75 0.[address] head without contrast Comparison: None provided Findings: No acute intracranial fluid collection or hematoma. No acute process in sinuses or mastoids. No acute bony abnormality. Impression: No acute intracranial process Microbiology Microbiology Results: Microbiology 02/02/25 17:01 Blood - Venous Blood Culture - Final No growth after 5 days. 02/02/25 17:01 Blood - Venous Blood Culture - Final No growth after 5 days. 02/02/25 21:55 Sputum - Suctioned Gram Stain - Final 02/02/25 21:55 Sputum - Suctioned Sputum Culture - Final Staphylococcus aureus Streptococcus group c Assessment and Plan (1) Encephalopathy: Status: Acute (2) Seizure: Status: Acute 40 years old man with poorly drug abuse and recent respiratory failure leading to intubation. He was on step-down unit and was recovering when he was noted to have a generalized convulsion. He was not known to have any seizures. He was not febrile at this time, blood pressure was not to high to explain this event, metabolic numbers were also not explanatory. His examination this time revealed encephalopathy, which likely was multifactorial. My recommendation is a noncontrast MRI of brain and an EEG. Another CT is not needed. Procedures Date of Service Date of Service: 02/09/25
[2025-02-09 10:30] LABS: Reflex Lactate? Lactic Acid Added
[2025-02-09] MEDS: clonazePAM ODT 0.5 MG TAB.RAPDIS 2 MG PO ×3 (10:58→20:57)
--- NOTE | 2025-02-09 11:13 | HO.ADDICT_ITS ---
History of Present Illness Date of Service: 02/09/2025 Chief Complaint: Pneumonia Reason for Consult: CARRIE HPI Narrative: Patient is a 40 year old male who was medically admitted to ICU with acute hypoxic respiratory failure. Intubated from 02/02-02/07. Transferred to medical floor on 02/08. History of OUD, currently engaged in treatment and receiving MOUD 98mg QD Seen by search strategist 02/08-at that time he denied any illicit substance use and reported that he was prescribed Alprazolam for anxiety. Evening of 02/08 patient had seizure while using the bathroom and the morning of 02/09 also had seizure Concern that this may be related to benzodiazipine withdrawal Seen by t/w in room 485. He is awake, alert, but post ictal/altered --thanked t/w for performing surgery. He denies any substance use. Denies Alprazolam use, sates he is prescribed Klonopin 1mg QD and that is all he takes. Allowed t/w to call his mother for collateral. Collateral from mother: Patient has been in an unhealthy relationship and living situation is concerning due to ongoing substance use. She states that pt denies substance use to her, however she reports that overheard pt's ex discussing patient and his substance use and that stated patient has been using alot of xanax . Unsure of amount or length of use. Mass Pat confirms what patient reported --Clonazepam 0.5mg BID has been prescribed for some time UDS +cocaine, fentanyl, methadone and benzodiazepine important to note that UDS was collected after fentanyl was administered here Benzodiazepine med administration while here: From 02/02-02/07 mid day, patient intubated and receiving precedex and versed 02/07: Alprazolam 2mg 1519 and 2113 02/08: Alprazolam 2mg 0845--------order changed from Alprazolam 2mg TID to Clonazepam 2mg BID 02/08: Diazepam 5mg IV (rapid response -seizure) Clonazepam 2mg 2241 02/09: Diazepam 10mg IV (rapid response) Clonazepam 2mg 1058 *current order Clonazepam 2mg TID Past Psychiatric History: treated for depression and anxiety at age 21 outpatient for short period Medical Evaluation Reviewed: Yes Review of Systems Review of Systems Yes Unobtainable due to mental status Diagnostics Vital Signs (24Hr): Vital Signs - 24 hr 02/08/25 12:00 02/08/25 14:59 02/08/25 18:30 Temperature 98.3 F 98.9 F Pulse Rate 108 H 102 H Respiratory Rate 20 18 Blood Pressure 149/88 H 140/100 H 140/100 H Pulse Oximetry 96 95 Oxygen Delivery Method Nasal Cannula Nasal Cannula Oxygen Flow Rate 2 3 02/08/25 19:07 02/08/25 20:50 02/08/25 20:51 Temperature 97.6 F Pulse Rate 86 103 H 124 H Respiratory Rate 16 Blood Pressure 147/83 H 164/81 H 126/73 Pulse Oximetry 92 99 58 L Oxygen Delivery Method Room Air Non-Rebreather Mask Room Air Oxygen Flow Rate 02/08/25 20:55 02/08/25 20:57 02/08/25 20:59 Temperature Pulse Rate 103 H Respiratory Rate Blood Pressure 164/81 H Pulse Oximetry 99 99 97 Oxygen Delivery Method Non-Rebreather Mask Oxymask Oxymask Oxygen Flow Rate 15 10 5 02/08/25 21:55 02/08/25 22:59 02/08/25 23:09 Temperature 97.5 F 97.5 F Pulse Rate 102 H 102 H Respiratory Rate 18 18 Blood Pressure 147/27 H 147/72 H Pulse Oximetry 92 96 92 Oxygen Delivery Method Nasal Cannula Nasal Cannula Nasal Cannula Oxygen Flow Rate 4 4 02/09/25 04:00 02/09/25 08:00 Temperature 98.7 F 98.1 F Pulse Rate 78 92 Respiratory Rate 16 20 Blood Pressure 166/79 H 130/70 Pulse Oximetry 96 93 Oxygen Delivery Method Nasal Cannula Nasal Cannula Oxygen Flow Rate 5 5 BMI result Body Mass Index 33.9 Labs 02/09/25 06:59 02/09/25 06:59 Labs: Laboratory Results - last 48 hr 02/07/25 02/08/25 02/08/25 14:45 07:30 11:28 WBC 17.2 H RBC 4.36 L Hgb 11.6 L Hct 34.9 L MCV 80.0 MCH 26.6 L MCHC 33.2 RDW 14.1 Plt Count 416 H D MPV 9.4 Immature Gran % (Auto) Cancelled Neut % (Auto) Cancelled Lymph % (Auto) Cancelled [place] % (Auto) Cancelled Eos % (Auto) Cancelled Baso % (Auto) Cancelled Lymph # (Auto) Cancelled [place] # (Auto) Cancelled Eos # (Auto) Cancelled Baso # (Auto) Cancelled Abs Immat Gran (auto) Cancelled Absolute Neuts (auto) Cancelled Absolute Nucleated RBC 0.000 Nucleated RBC % (auto) 0.0 Neutrophils % (Manual) 80 H Band Neutrophils % 3 Lymphocytes % (Manual) 11 L Monocytes % (Manual) 2 Eosinophils % (Manual) 2 Metamyelocytes % 2 Abs Neuts (Manual) 14.3 H Lymphocytes # (Manual) 1.9 Monocytes # (Manual) 0.3 Eosinophils # (Manual) 0.3 Metamyelocytes # 0.3 Hypersegmented Neuts PRESENT Platelet Estimate NORMAL Plt Morphology Comment NORMAL RBC Morphology NOTED Polychromasia 1+ (0-2) Sodium 137 Potassium 3.7 Chloride 99 Carbon Dioxide 23 Anion Gap 19 BUN 18 H Creatinine 0.63 Estim Creat Clear Calc 196.2 Estimated GFR > 60 POC Glucose Random Glucose 126 H Lactic Acid Calcium 8.9 Phosphorus 4.4 Magnesium 2.4 Troponin I High Sens Albumin 4.2 Random Vancomycin 21.4 H 10.2 L 02/08/25 02/08/25 02/08/25 20:47 21:37 23:24 WBC 15.2 H RBC 4.63 Hgb 12.2 L Hct 36.8 L MCV 79.5 L MCH 26.3 L MCHC 33.2 RDW 14.3 Plt Count 444 H MPV 8.7 L Immature Gran % (Auto) 3.9 H Neut % (Auto) 84.5 H Lymph % (Auto) 7.5 L [place] % (Auto) 3.4 Eos % (Auto) 0.3 Baso % (Auto) 0.4 Lymph # (Auto) 1.1 L [place] # (Auto) 0.5 Eos # (Auto) 0.1 Baso # (Auto) 0.1 Abs Immat Gran (auto) 0.60 H Absolute Neuts (auto) 12.8 H Absolute Nucleated RBC 0.000 Nucleated RBC % (auto) 0.0 Neutrophils % (Manual) Band Neutrophils % Lymphocytes % (Manual) Monocytes % (Manual) Eosinophils % (Manual) Metamyelocytes % Abs Neuts (Manual) Lymphocytes # (Manual) Monocytes # (Manual) Eosinophils # (Manual) Metamyelocytes # Hypersegmented Neuts Platelet Estimate Plt Morphology Comment RBC Morphology Polychromasia Sodium 139 Potassium 3.2 L Chloride 100 Carbon Dioxide 26 Anion Gap 16 BUN 21 H Creatinine 0.75 Estim Creat Clear Calc 164.8 Estimated GFR > 60 POC Glucose 137 H Random Glucose 160 H Lactic Acid 6.2 H* 1.0 Calcium 9.4 Phosphorus Magnesium 2.8 H Troponin I High Sens Albumin Random Vancomycin 02/09/25 02/09/25 02/09/25 06:59 07:44 08:24 WBC 12.6 H RBC 4.56 L Hgb 11.9 L Hct 36.7 L MCV 80.5 MCH 26.1 L MCHC 32.4 RDW 14.4 Plt Count 389 MPV 9.9 Immature Gran % (Auto) 3.3 H Neut % (Auto) 80.3 H Lymph % (Auto) 8.9 L [place] % (Auto) 6.3 Eos % (Auto) 0.6 Baso % (Auto) 0.6 Lymph # (Auto) 1.1 L [place] # (Auto) 0.8 Eos # (Auto) 0.1 Baso # (Auto) 0.1 Abs Immat Gran (auto) 0.42 H Absolute Neuts (auto) 10.1 H Absolute Nucleated RBC 0.000 Nucleated RBC % (auto) 0.0 Neutrophils % (Manual) Band Neutrophils % Lymphocytes % (Manual) Monocytes % (Manual) Eosinophils % (Manual) Metamyelocytes % Abs Neuts (Manual) Lymphocytes # (Manual) Monocytes # (Manual) Eosinophils # (Manual) Metamyelocytes # Hypersegmented Neuts Platelet Estimate Plt Morphology Comment RBC Morphology Polychromasia Sodium 142 Potassium 4.3 D Chloride 106 Carbon Dioxide 21 L Anion Gap 19 BUN 24 H Creatinine 0.72 Estim Creat Clear Calc 184.2 Estimated GFR > 60 POC Glucose 139 H Random Glucose 136 H Lactic Acid 4.9 H* Calcium 9.3 Phosphorus 3.7 Magnesium 2.8 H Troponin I High Sens 9.7 D Albumin Random Vancomycin 02/09/25 09:53 WBC RBC Hgb Hct MCV MCH MCHC RDW Plt Count MPV Immature Gran % (Auto) Neut % (Auto) Lymph % (Auto) [place] % (Auto) Eos % (Auto) Baso % (Auto) Lymph # (Auto) [place] # (Auto) Eos # (Auto) Baso # (Auto) Abs Immat Gran (auto) Absolute Neuts (auto) Absolute Nucleated RBC Nucleated RBC % (auto) Neutrophils % (Manual) Band Neutrophils % Lymphocytes % (Manual) Monocytes % (Manual) Eosinophils % (Manual) Metamyelocytes % Abs Neuts (Manual) Lymphocytes # (Manual) Monocytes # (Manual) Eosinophils # (Manual) Metamyelocytes # Hypersegmented Neuts Platelet Estimate Plt Morphology Comment RBC Morphology Polychromasia Sodium Potassium Chloride Carbon Dioxide Anion Gap BUN Creatinine Estim Creat Clear Calc Estimated GFR POC Glucose Random Glucose Lactic Acid 2.0 Calcium Phosphorus Magnesium Troponin I High Sens Albumin Random Vancomycin Imaging Radiology Impressions: ITS Impressions Chest X-Ray 02/09/25 08:10 IMPRESSION: Patchy opacities in both lungs without change. Electronically signed by: Rei Bello MD 02/09/2025 08:35 AM [facility] Mental Status Exam Mental Status Exam Level of Consciousness: Awake and Disoriented Affect Description: Calm Speech Pattern: Clear Thought Content: positive for Disoriented Judgement: Poor Medications Medications Current Medications Albuterol/Ipratropium (Albuterol/Iprat 2.5/0.5mg 3 Ml Ampul.Neb) 3 ml INHALE RQ4H WHILE AWAKE PRN PRN Reason: Wheezing Last Admin: 02/02/25 20:22 Dose: 3 ml Clonazepam (Clonazepam Odt 0.5 Mg Tab.Rapdis) 2 mg PO TID [facility] Last Admin: 02/09/25 10:58 Dose: 2 mg Clonidine HCl (Clonidine Hcl 0.2 Mg Tablet) 0.2 mg PO BEDTIME PRN; Protocol PRN Reason: Anxiety Diazepam (Diazepam 10 Mg/2 Ml Cartridge) 10 mg IVPUSH Q4H PRN PRN Reason: WITHDRAWAL Enoxaparin Sodium (Enoxaparin Sodium 40 Mg/0.4 Ml Syringe) 40 mg SUBCUT Q24H [facility] Last Admin: 02/08/25 18:30 Dose: 40 mg Furosemide (Furosemide 20 Mg/2 Ml Vial) 20 mg IVPUSH BID@0900,1800 [facility]; Protocol Last Admin: 02/09/25 09:26 Dose: 20 mg Hydromorphone HCl (Hydromorphone Hcl 2 Mg/Ml Vial) 2 mg IVPUSH Q2H PRN; Protocol PRN Reason: Pain, Severe (Pain Scale 7-10) Acetaminophen (Ofirmev) 1,000 mg in 100 mls @ 400 mls/hr IV Q6H PRN PRN Reason: Fever Last Infusion: 02/06/25 12:40 Dose: Infused Levofloxacin (Levaquin) 750 mg in 150 mls @ 100 mls/hr IV Q24H [facility] Last Admin: 02/09/25 09:26 Dose: 100 mls/hr Vancomycin HCl 1,250 mg/ (Sodium Chloride) 250 mls @ 166.667 mls/hr IV Q8H [facility] Last Infusion: 02/09/25 06:30 Dose: Infused Methadone HCl (Methadone Hcl 20 Mg/2 Ml Oral.Conc) 98 mg PO DAILY@0800 [facility] Last Admin: 02/09/25 08:38 Dose: 98 mg Ondansetron HCl (Ondansetron Hcl 4 Mg/2 Ml Vial) 4 mg IVPUSH Q6H PRN PRN Reason: Nausea and Vomiting Last Admin: 02/08/25 05:10 Dose: 4 mg Pantoprazole Sodium (Pantoprazole Sodium 40 Mg/10 Ml Vial) 40 mg IVPUSH DAILY@0630 [facility] Last Admin: 02/09/25 06:10 Dose: 40 mg Pharmacy Consult (Consult Rx Vancomycin Dosing) 1 each MISCELLANE DAILY PRN PRN Reason: Consult order Sodium Chloride (0.9 % Sodium Chloride Flush 3 Ml Syringe) 3 ml IVFLUSH QSHIFT [facility] Last Admin: 02/09/25 10:39 Dose: Not Given Allergies Allergies Allergy/AdvReac Type Severity Reaction Status Date / Time No Known Allergies Allergy Verified 02/02/25 16:51 Assessment & Plan Assessment & Plan (1) Benzodiazepine dependence: Status: Acute Code(s): F13.20 - Sedative, hypnotic or anxiolytic dependence, uncomplicated Assessment and Plan: * challenging to obtain accurate history based on patients AMS and complicated social situation * D/C Clonazepam * change to diazepam 10mg Q6H scheduled --monitor respiratory status * consider neuro consult to r/o other causes of seizure activity * will continue to follow and adjust diazepam dosing as mentation improves * CIWA ordered to monitor withdrawal sx. Total time managing care of this patient today _45___ minutes. 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 Chronic lower back pain Family History Family History Mother Mental health disorder Surgical History Surgical History No pertinent past surgical history Social History Social History Household Members: Family Housing: Unknown / Unable to assess Do you presently have visiting nurse or other home services: No Alcohol intake: never Patient Tobacco Use Status: Current everyday Tobacco user Tobacco use type: Cigarette Cigarette Packs Per Day: 0.5 Cigarettes Per Day: 7 Smoked in Last 30 Days: Yes e-Cigarette/Vaping Use: Former Use Second Hand Smoke Exposure: Yes Use of substances other than those prescribed or required for medical reasons: No Currently Displaying Signs/Symptoms of Drug Intoxication Withdrawal: No Advance Directives: No Advance Directives Information Provided: No Do you have a plan to hurt others: No Plan Recently lost weight without trying: Unsure How much weight loss: Unsure Nutrition Risks: On aspiration precautions Poor oral hygiene: No service: No Current occupational status: employed Current occupation: [employer] Cognitive needs: No Hearing needs: No Vision needs: No
[2025-02-09 11:47] LABS: ~Lactic Acid-LAB USE ONLY 1.2 mmol/L (0.5-2.0)
[2025-02-09 12:00] VITALS: BP 144/78; PULSE 89; RESP 20; TEMP 37.2; O2SAT 94
--- NOTE | 2025-02-09 12:01 | HE.PHANOTE ---
Re: Becky Renal function is stable and improved. Trough returned at 18.2, continue current dose 1250mg q8h with predicted AUC 516, predicted trough 15.4. Next trough scheduled 02/10 @ 1100.
--- NOTE | 2025-02-09 12:27 | PC.NURSE ---
SENIOR PROJECT ARCHITECT initiated around 0740, pt found to be having seizure. POC 139, vital signs stable. 0744: 5 mg valium given 0747: IV keppra given EKG done, pt post ictal, SENIOR PROJECT ARCHITECT ended Around 0810 SENIOR PROJECT ARCHITECT initiated second time for pt heart rate up to 150s-190s EKG done 0810: 5 mg lopressor given 0815: second dose 5 mg lopressor give heart rate 156 0819: 10 mg valium administered 0841: 5 mg lopressor given LR bolus given per MAR Per MD ok to give pt PO methadone, SENIOR PROJECT ARCHITECT ended 1230: pt heart rate in 90s, remains NPO
--- NOTE | 2025-02-09 13:55 | PM.CNCAR ---
History of Present Illness History of Present Illness Date of Service: 02/15/25 Requesting physician: Anju Rao Chief complaint: Atrial flutter Narrative: [age] year gentleman with polysubstance abuse and benzodiazepine dependence who had withdrawal seizure and developed atrial flutter. This was a short episode. The patient is postictal and is waking up now. He is denying any chest discomfort or shortness of breath. He does not recall having any cardiovascular issues in the past. Telemetry reviewed which clearly showed atrial flutter episode which has improved at this stage. He is in sinus rhythm. 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 Chronic lower back pain Family History Family History Mother Mental health disorder Surgical History Surgical History No pertinent past surgical history Social History Social History Household Members: Family Housing: Unknown / Unable to assess Do you presently have visiting nurse or other home services: No Alcohol intake: never Patient Tobacco Use Status: Current everyday Tobacco user Tobacco use type: Cigarette Cigarette Packs Per Day: 0.5 Cigarettes Per Day: 7 Smoked in Last 30 Days: Yes e-Cigarette/Vaping Use: Former Use Second Hand Smoke Exposure: Yes Use of substances other than those prescribed or required for medical reasons: No Currently Displaying Signs/Symptoms of Drug Intoxication Withdrawal: No Advance Directives: No Advance Directives Information Provided: No Do you have a plan to hurt others: No Plan Recently lost weight without trying: Unsure How much weight loss: Unsure Nutrition Risks: On aspiration precautions Poor oral hygiene: No service: No Current occupational status: employed 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 Cognitive needs: No Hearing needs: No Vision needs: No Meds Allergies Allergy/AdvReac Type Severity Reaction Status Date / Time No Known Allergies Allergy Verified 02/02/25 16:51 Active Medications: Current Medications Albuterol/Ipratropium (Albuterol/Iprat 2.5/0.5mg 3 Ml Ampul.Neb) 3 ml INHALE RQ4H WHILE AWAKE PRN PRN Reason: Wheezing Last Admin: 02/02/25 20:22 Dose: 3 ml Clonazepam (Clonazepam Odt 0.5 Mg Tab.Rapdis) 2 mg PO TID [facility] Last Admin: 02/09/25 10:58 Dose: 2 mg Clonidine HCl (Clonidine Hcl 0.2 Mg Tablet) 0.2 mg PO BEDTIME PRN; Protocol PRN Reason: Anxiety Diazepam (Diazepam 10 Mg/2 Ml Cartridge) 10 mg IVPUSH Q4H PRN PRN Reason: WITHDRAWAL Enoxaparin Sodium (Enoxaparin Sodium 40 Mg/0.4 Ml Syringe) 40 mg SUBCUT Q24H [facility] Last Admin: 02/08/25 18:30 Dose: 40 mg Furosemide (Furosemide 20 Mg/2 Ml Vial) 20 mg IVPUSH BID@0900,1800 [facility]; Protocol Last Admin: 02/09/25 09:26 Dose: 20 mg Hydromorphone HCl (Hydromorphone Hcl 2 Mg/Ml Vial) 2 mg IVPUSH Q2H PRN; Protocol PRN Reason: Pain, Severe (Pain Scale 7-10) Acetaminophen (Ofirmev) 1,000 mg in 100 mls @ 400 mls/hr IV Q6H PRN PRN Reason: Fever Last Infusion: 02/06/25 12:40 Dose: Infused Levofloxacin (Levaquin) 750 mg in 150 mls @ 100 mls/hr IV Q24H [facility] Last Infusion: 02/09/25 11:27 Dose: Infused Vancomycin HCl 1,250 mg/ (Sodium Chloride) 250 mls @ 166.667 mls/hr IV Q8H [facility] Last Infusion: 02/09/25 06:30 Dose: Infused Methadone HCl (Methadone Hcl 20 Mg/2 Ml Oral.Conc) 98 mg PO DAILY@0800 [facility] Last Admin: 02/09/25 08:38 Dose: 98 mg Ondansetron HCl (Ondansetron Hcl 4 Mg/2 Ml Vial) 4 mg IVPUSH Q6H PRN PRN Reason: Nausea and Vomiting Last Admin: 02/08/25 05:10 Dose: 4 mg Pantoprazole Sodium (Pantoprazole Sodium 40 Mg/10 Ml Vial) 40 mg IVPUSH DAILY@0630 [facility] Last Admin: 02/09/25 06:10 Dose: 40 mg Pharmacy Consult (Consult Rx Vancomycin Dosing) 1 each MISCELLANE DAILY PRN PRN Reason: Consult order Sodium Chloride (0.9 % Sodium Chloride Flush 3 Ml Syringe) 3 ml IVFLUSH QSHIFT [facility] Last Admin: 02/09/25 10:39 Dose: Not Given Home Medications ?Medication ?Instructions ?Recorded ?Confirmed ?Last Taken ?Type aripiprazole 20 mg tablet 20 mg PO BEDTIME 02/02/25 02/03/25 02/02/25 History clonazepam 0.5 mg tablet 0.5 mg PO BID 02/02/25 02/03/25 02/02/25 History gabapentin 800 mg tablet 800 mg PO TID 02/02/25 02/03/25 02/02/25 History clonidine HCl 0.2 mg tablet 0.2 mg PO BEDTIME PRN Anxiety 02/03/25 02/03/25 Unknown History methadone 10 mg/mL oral 98 mg PO DAILY 02/03/25 02/07/25 02/02/25 History concentrate (Methadone Intensol) sertraline 100 mg tablet 200 mg PO DAILY 02/03/25 02/03/25 Unknown History Physical Exam Vital Signs: Vital Signs: Last Vital Signs Temp 98.9 F 02/09/25 12:00 Pulse 89 02/09/25 12:00 Resp 20 02/09/25 12:00 BP 144/78 H 02/09/25 12:00 Pulse Ox 94 02/09/25 12:00 O2 Del Method Nasal Cannula 02/09/25 12:00 O2 Flow Rate 2 02/09/25 12:00 FiO2 60 02/07/25 12:00 Oxygen Flow Rate 4 02/08/25 21:55 BMI result Body Mass Index 33.9 GENERAL APPEARANCE: in no acute distress, sleepy. NECK: no carotid bruit, no jugular venous distention. SKIN: Track guallpa on hands. HEART: no murmurs, regular rate and rhythm. LUNGS: clear to auscultation bilaterally. ABDOMEN: soft, nontender. EXTREMITIES: no edema. PERIPHERAL PULSES: equal. NEUROLOGIC: No gross deficits, somewhat sleepy appearing. Answering questions appropriately. Objective Labs and Meds 02/14/25 07:03 02/14/25 07:03 Lab results: Laboratory Results - last 24 hr 02/08/25 02/08/25 02/08/25 20:47 21:37 23:24 WBC 15.2 H RBC 4.63 Hgb 12.2 L Hct 36.8 L MCV 79.5 L MCH 26.3 L MCHC 33.2 RDW 14.3 Plt Count 444 H MPV 8.7 L Immature Gran % (Auto) 3.9 H Neut % (Auto) 84.5 H Lymph % (Auto) 7.5 L [place] % (Auto) 3.4 Eos % (Auto) 0.3 Baso % (Auto) 0.4 Lymph # (Auto) 1.1 L [place] # (Auto) 0.5 Eos # (Auto) 0.1 Baso # (Auto) 0.1 Abs Immat Gran (auto) 0.60 H Absolute Neuts (auto) 12.8 H Absolute Nucleated RBC 0.000 Nucleated RBC % (auto) 0.0 Sodium 139 Potassium 3.2 L Chloride 100 Carbon Dioxide 26 Anion Gap 16 BUN 21 H Creatinine 0.75 Estim Creat Clear Calc 164.8 Estimated GFR > 60 POC Glucose 137 H Random Glucose 160 H Lactic Acid 6.2 H* 1.0 Lactic Acid F/U @ 2Hr Calcium 9.4 Phosphorus Magnesium 2.8 H Troponin I High Sens Vancomycin Trough 02/09/25 02/09/25 02/09/25 06:59 07:44 08:24 WBC 12.6 H RBC 4.56 L Hgb 11.9 L Hct 36.7 L MCV 80.5 MCH 26.1 L MCHC 32.4 RDW 14.4 Plt Count 389 MPV 9.9 Immature Gran % (Auto) 3.3 H Neut % (Auto) 80.3 H Lymph % (Auto) 8.9 L [place] % (Auto) 6.3 Eos % (Auto) 0.6 Baso % (Auto) 0.6 Lymph # (Auto) 1.1 L [place] # (Auto) 0.8 Eos # (Auto) 0.1 Baso # (Auto) 0.1 Abs Immat Gran (auto) 0.42 H Absolute Neuts (auto) 10.1 H Absolute Nucleated RBC 0.000 Nucleated RBC % (auto) 0.0 Sodium 142 Potassium 4.3 D Chloride 106 Carbon Dioxide 21 L Anion Gap 19 BUN 24 H Creatinine 0.72 Estim Creat Clear Calc 184.2 Estimated GFR > 60 POC Glucose 139 H Random Glucose 136 H Lactic Acid 4.9 H* Lactic Acid F/U @ 2Hr Calcium 9.3 Phosphorus 3.7 Magnesium 2.8 H Troponin I High Sens 9.7 D Vancomycin Trough 02/09/25 02/09/25 09:53 11:24 WBC RBC Hgb Hct MCV MCH MCHC RDW Plt Count MPV Immature Gran % (Auto) Neut % (Auto) Lymph % (Auto) [place] % (Auto) Eos % (Auto) Baso % (Auto) Lymph # (Auto) [place] # (Auto) Eos # (Auto) Baso # (Auto) Abs Immat Gran (auto) Absolute Neuts (auto) Absolute Nucleated RBC Nucleated RBC % (auto) Sodium Potassium Chloride Carbon Dioxide Anion Gap BUN Creatinine Estim Creat Clear Calc Estimated GFR POC Glucose Random Glucose Lactic Acid 2.0 Lactic Acid F/U @ 2Hr 1.2 Calcium Phosphorus Magnesium Troponin I High Sens Vancomycin Trough 18.2 Imaging Radiologist's impression: Impressions Chest X-Ray 02/09/25 08:10 IMPRESSION: Patchy opacities in both lungs without change. Electronically signed by: Rei Bello MD 02/09/2025 08:35 AM [facility] Assessment and Plan (1) Polysubstance abuse: Status: Acute (2) Atrial flutter: Status: Acute Plan 40 male with polysubstance abuse, withdrawal seizure and atrial flutter. Atrial flutter episode after seizure. He has been sinus rhythm since. c/w BB. Titrate benzos to stabilize withdrawal. No indication for anticoagulation. Procedures Date of Service Date of Service: 02/15/25
--- NOTE | 2025-02-09 13:58 | MHC.CLN ---
F/U PT EXTUBATED AND TRANSFERRED TO MEDICAL FLOOR PT CURRENTLY NPO HOWEVER ASSOCIATE DIRECTOR FINANCE RECOMMENDED CHOPPED DIET MONITOR PO INTAKE CLOSELY IF PO INTAKE POOR; WILL ADD SUPPLEMENT TO INCREASE KCALS
--- NOTE | 2025-02-09 14:40 | MHC.CM.PN ---
Per rounds, pt. is not ready to DC, he had seizure this morning, still being assessed.
[2025-02-09 16:00] VITALS: BP 127/79; PULSE 88; RESP 20; TEMP 36.5; O2SAT 96
--- NOTE | 2025-02-09 16:32 | MHC.SL.SWA ---
Speech Pathologist Impression: Mild oropharyngeal dysphagia Risk of Aspiration Due to: S/p seizure, dentition status Dysphasia Diet Status: Recommend START diet of NDD3, Thin liquids Liquid Consistency and Strategies for Safe Swallow: Liquid Intake Recommendation: Thin Liquid Intake Strategies: Solid Food Consistency: Dietary Recommendations: Chopped/Advanced (NDD3) Additional Modifications to Solid Foods: Oral Medication Intake: Whole with Liquid Please contact the pharmacy regarding appropriate crushable or liquid drug formulations that are available whenever modified delivery is recommended. Compensatory Strategies and Precautions to be Taken for Safe Swallow: Sitting Upright (90 deg) Small Bites and Sips Alternate Liquids/Solids Rate of Ingestion Change Supervision While Eating and Drinking for Safe Swallow: Intermittent Supervision Foods to Avoid: Swallowing Recommended Treatments: Compens. Strategy Educat. Recommendation for Speech: NA:Typical Evaluation Comment: Patient met in room for bedside swallow re-evaluation s/p seizure. Per MD Event note: TAILER OUT activated. Pt had tonic-clonic activity/seizure while using the toilet. On arrival the patient was making a snoring sound and was unresponsive. Pupils dilated but responsive. He was transferred to bed. Blood glucose stat was 137. VS stable. Head CT scan stat obtained and results pending as the patient has no history of seizures. Per history patient takes higher doses of Xanax. He has not gotten his nighttime clonazepam. I am suspecting that seizures are secondary to benzos withdrawal. Patient received Valium 5 mg IV stat and now post-ictal. Blood workup was ordered. Lactic acid came back elevated at 6.2. We are still awaiting for CBC and lytes. Patient placed on NPO pending speech evaluation. Patient presents with mild oropharyngeal dysphagia characterized by prolonged mastication, reduced cohesion with eventual clearance. Patient met in room and HOB elevated prior to PO intake. Patient noted to be slow to respond to questions (both thought processing and speech), yet answering all questions correctly. Patient alert and oriened x4. Patient with no overt s/sx of penetration/aspiration. Patient's OME WFL; noted slow movement and limited dentition. Per family at bedside, patient lost some teeth during intubation and does not have many left. Patient denying pain with mastication but did state uncomfortable. Recommend START diet of NDD3 (Chopped/Advanced), Thin liquids. Cue patient to utilize small sips/bites, alternate liquids/solids, and slow rate of self-feeding. Communication of recommendations completed with RN, RD, and MD via secure chat. Per MD to upgrade diet as patient NPO. TESTING SHAKING SHIPPING to follow. Frequency/Duration: M-F daily Date Range for Service Req: Timeline to reassess: Turkish Line Attendant Clinican/Clinical Fellow: No Supervisory Statement: I have reviewed and agree with the student/clinical fellow's documentation: N/A Speech Language Pathologist: Juliet Terry M.A., CCC-TESTING SHAKING SHIPPING
[2025-02-09 19:25] VITALS: BP 135/64; PULSE 100; RESP 18; TEMP 37.4; O2SAT 98
[2025-02-09 23:42] VITALS: BP 143/75; PULSE 79; RESP 18; TEMP 37.1; O2SAT 94
[2025-02-10] VITALS (7 sets, daily range): BP systolic 131–141; BP diastolic 73–89; PULSE 75–118; RESP 16–18; TEMP 36.5–37.3; O2SAT 95–98
[2025-02-10] MEDS: 0.9 % Sodium Chloride Flush 3 ML SYRINGE IVFLUSH ×3 (04:37→20:06)
--- NOTE | 2025-02-10 07:00 | CA_ITS ---
Transthoracic Echocardiogram Patient (Last, First, Middle): Kumar Adair, Gender: Male Date of : 1985 Age: 40 Procedure Date: 02/10/2025 Procedure Type: Transthoracic Echocardiogram [place] [facility] [place] Height: 185.42 cm Weight: 116.58 kg BSA: 2.39 m2 Heart Rate: bpm BP: 166 / 79 mmHg Belt Press Operator: JOSEFA Referring MD: Anju Rao MD Mathematics Academic Chair: Danilo Shah MD Symptoms: New Aflutter Study Quality: Fair ECG Rhythm: Sinus Conclusions: - Technically limited study due to positioning but otherwise essentially normal study Findings Left Ventricle Normal left ventricular size, thickness, and systolic function. The visually estimated ejection fraction is between 60-65%. Regional wall motion abnormalities can not be excluded due to suboptimal endocardial definition. Diastolic function is indeterminate on the basis of available data. Right Ventricle The right ventricle was not well visualized. Atria The left atrium is normal in size. Interatrial shunt cannot be excluded. The right atrium was not well visualized. Aortic Valve The aortic valve was not well visualized. There is no aortic valve stenosis. There is no aortic valve regurgitation. Mitral Valve Likely normal mitral valve structure and function. There is trace mitral valve regurgitation. There is no mitral valve stenosis. Pulmonic Valve The pulmonic valve was not well visualized. Tricuspid Valve Likely normal tricuspid valve structure and function. There is trace tricuspid valve regurgitation. The right ventricular systolic pressure is normal. The right ventricular systolic pressure is 16 mmHg. Normal right atrial pressure. There is no evidence of pulmonary hypertension. Great Vessels The aorta was not well visualized. The pulmonary artery was not well visualized. Venous The inferior vena cava is normal in size. Pericardium/Pleural The pericardium was not well visualized. Prior Study Comparison No prior study available for comparison. Measurements 2D Linear Measurements IVSd: 1.06 0.6-0.9/0.6-1.0 cm LVIDd: 3.95 3.9-5.3/4.2-5.9 cm LVIDd Index: 1.65 2.4-3.2/2.2-3.1 cm/m2 LVIDs: 2.31 2.0-3.6 cm LVPWd: 1.07 0.7-1.1 cm LA Diam: 2.80 2.7-3.8/3.0-4.0 cm LAIDs Index: 1.17 1.5-2.3 cm/m2 LV Mass: 169.65 67-162/88-224 g LV Mass Index: 70.98 43-95/49-115 g/m2 LVOT Diam: 2.50 3.0+(-)1.3 cm Mitral Valve MV Pk E: 0.62 MV PK A: 0.56 MV Decel Time: 129.00 E/A: 1.10 E'Lateral: 11.60 E'Medial: 7.29 E/E' Med: 8.50 E/E' Lat: 5.40 PHT: 38.00 MVA PHT: 5.79 Decel [place]: 4.80 Aortic Valve AoV Pk Constantino: 1.28 AoV Mn Constantino: 0.97 AoV VTI: 0.20 AoV Pk Grad: 7.00 Aov Mn Grad: 4.00 BENNETT Cont.VTI: 3.20 LVOT LVOT Pk Constantino: 0.83 LVOT Mn Constantino: 0.53 LVOT VTI: 0.13 LVOT Pk Grad: 3.00 LVOT Mn Grad: 1.00 LVOT Diam: 2.50 LVOT Area: 4.91 Diastolic Function MV Pk E: 0.62 MV Pk A: 0.56 E/A: 1.10 E'Medial: 7.29 E/E' Med: 8.50 E' Laterial: 11.60 E/E' Lat: 5.40 Tricuspid Valve TR Pk Constantino: 1.44 TR Pk Grad: 8.00 RA Press: 8.00 RVSP: 16.00 Great Vessels Aorta Ao Asc: 3.20 2.1-3.4 cm Updated in Other Vendor System with Status of Final Danilo Shah MD electronically signed on 02/11/2025 11:44:08 AM with status of Final
[2025-02-10 07:07] LABS: MANUAL DIFF FLAG NO
[2025-02-10 07:17] LABS: Hematocrit 37.4 % (42.0-52.0); Hemoglobin 11.8 g/dl (14.0-18.0); Imm Gran Abs Auto 0.14 X10*3/uL (0.00-0.03); Imm Gran Pct Auto 1.5 % (0.0-0.4); Lymphocytes Absolute Auto 1.5 X10*3/uL (1.2-4.9); Mean Corpuscular HGB Conc 31.6 g/dl (31.0-36.0); Mean Corpuscular Hemoglobin 25.9 pg (27.0-33.0); Mean Corpuscular Volume 82.2 fL (80.0-98.0); NRBC Abs Auto 0.000 X10*3/uL (0.0-0.012); NRBC Pct Auto 0.0 /100WBC (0.0-0.2); Platelet Count 483 X10*3/uL (160-400); Red Blood Count 4.55 X10*6/uL (4.60-5.80); White Blood Count 9.3 X10*3/uL (4.8-10.8)
[2025-02-10 08:15] LABS: Anion Gap 15 (12-20); Blood Urea Nitrogen 25 mg/dL (9-16); Calcium 9.0 mg/dL (8.4-10.2); Carbon Dioxide 26 mmol/L (22-29); Chloride 102 mmol/L (96-108); Creatinine Clr Calc Pharmacy 192.2; Estimated Glomerular Filt Rate > 60; Potassium 3.4 mmol/L (3.3-5.1); Sodium 140 mmol/L (135-145)
[2025-02-10] MEDS: clonazePAM ODT 0.5 MG TAB.RAPDIS 2 MG PO ×3 (09:24→20:06)
[2025-02-10] MEDS: methADONE HCl 20 MG/2 ML ORAL.CONC 98 MG PO (09:25)
[2025-02-10] MEDS: Furosemide 20 MG/2 ML VIAL IVPUSH ×2 (09:25→17:42)
--- NOTE | 2025-02-10 11:54 | MHC.SL.SWA ---
Speech Pathologist Impression: Mild oropharyngeal dysphagia Risk of Aspiration Due to: dentition status impacting masitcation abilities Dysphasia Diet Status: Recommend CONTINUE on diet of NDD3, Thin liquids Liquid Consistency and Strategies for Safe Swallow: Liquid Intake Recommendation: Thin Liquid Intake Strategies: Solid Food Consistency: Dietary Recommendations: Chopped/Advanced (NDD3) Additional Modifications to Solid Foods: Oral Medication Intake: Whole with Liquid Please contact the pharmacy regarding appropriate crushable or liquid drug formulations that are available whenever modified delivery is recommended. Compensatory Strategies and Precautions to be Taken for Safe Swallow: Sitting Upright (90 deg) Small Bites and Sips Alternate Liquids/Solids Rate of Ingestion Change Supervision While Eating and Drinking for Safe Swallow: Intermittent Supervision Foods to Avoid: Swallowing Recommended Treatments: Compens. Strategy Educat. Recommendation for Speech: NA:Typical Evaluation Comment: Patient observed at breakfast this AM for dysphagia tx. Patient met in room with breakfast tray in front of him on bedside table. RESEARCH ENGINEER elevating HOB and repositioning bedside table prior to PO intake. Patient seen with breakfast of NDD3, Thin liquids. Patient tolerating current diet with no overt s/sx of penetration/aspiration. Patient with limited dentition and recently broken dentition resulting in prolonged mastication. Patient with adequate cohesion and clearance of NDD3 solids despite mastication deficits. Patient reporting some dislike with current diet. Endorses ease of mastication efforts with softer solids. Recommend CONTINUE on NDD3, Thin liquids. Follow up 1-2x for possible upgrade if deemed appropriate. Frequency/Duration: Follow up 1-2x Date Range for Service Req: Timeline to reassess: Work Station Support Specialist Clinican/Clinical Fellow: No Supervisory Statement: I have reviewed and agree with the student/clinical fellow's documentation: N/A Speech Language Pathologist: Juliet Terry M.A., CCC-RESEARCH ENGINEER
--- NOTE | 2025-02-10 11:55 | HE.PHANOTE ---
RE: VANCO DOSING Trough came back as 18.3 mg/L which is 3 mg/L above prediction (dun=257 trough=15.6). Renal function is stable. Concern for supratherapeutic, dose is decreased to 1000 mg q8h, next trough is scheduled for 02/11/25 @1100.
--- NOTE | 2025-02-10 11:59 | P.PNADD_ITS ---
Subjective Subjective Date of Service: 02/10/25 Reason For Visit: Atrial flutter Interim History: Patient seen in follow up for benzo use disorder Improved mentation-reporting that he had been taking btwn 2-4mg of alprazolam daily for the last several months--in addition to prescribed 1mg Clonazepam Patient apologizing numerous times during interview, stating he did not want to get anyone in trouble He denies any other substance use, including alcohol Chart reviewed--Clonazepam was not discontinued and Diazepam remains as PRN No seizures overnight CIWA scores have remained low --highest score 4 Patient appears very weak, slowed speech Review of Systems Acute medical concerns: Yes Review of Systems Constitutional: Reports as per HPI Mental Status Exam Mental Status Exam Level of Consciousness: Awake and Appropriate Patient Behavior: Appropriate and Guarded Affect Description: Blunted Speech Pattern: Long Pauses Thought Content: positive for [facility] Vital Signs (24Hr): Vital Signs - 24 hr 02/09/25 12:00 02/09/25 16:00 02/09/25 19:25 Temperature 98.9 F 97.7 F 99.4 F Pulse Rate 89 88 100 Respiratory Rate 20 20 18 Blood Pressure 144/78 H 127/79 135/64 Pulse Oximetry 94 96 98 Oxygen Delivery Method Nasal Cannula Nasal Cannula Nasal Cannula Oxygen Flow Rate 2 2 2 02/09/25 23:42 02/10/25 03:27 02/10/25 08:00 Temperature 98.7 F 97.7 F 99.2 F Pulse Rate 79 75 81 Respiratory Rate 18 16 16 Blood Pressure 143/75 H 138/73 136/89 Pulse Oximetry 94 95 95 Oxygen Delivery Method Nasal Cannula Nasal Cannula Nasal Cannula Oxygen Flow Rate 4 4 4 02/10/25 09:25 02/10/25 11:43 Temperature 97.7 F Pulse Rate 118 H Respiratory Rate 18 Blood Pressure 135/82 141/89 H Pulse Oximetry 97 Oxygen Delivery Method Nasal Cannula Oxygen Flow Rate 4 BMI result Body Mass Index 33.9 Labs 02/10/25 06:13 02/10/25 06:13 Labs: Laboratory Results - last 48 hr 02/08/25 02/08/25 02/08/25 20:47 21:37 23:24 WBC 15.2 H RBC 4.63 Hgb 12.2 L Hct 36.8 L MCV 79.5 L MCH 26.3 L MCHC 33.2 RDW 14.3 Plt Count 444 H MPV 8.7 L Immature Gran % (Auto) 3.9 H Neut % (Auto) 84.5 H Lymph % (Auto) 7.5 L [place] % (Auto) 3.4 Eos % (Auto) 0.3 Baso % (Auto) 0.4 Lymph # (Auto) 1.1 L [place] # (Auto) 0.5 Eos # (Auto) 0.1 Baso # (Auto) 0.1 Abs Immat Gran (auto) 0.60 H Absolute Neuts (auto) 12.8 H Absolute Nucleated RBC 0.000 Nucleated RBC % (auto) 0.0 Sodium 139 Potassium 3.2 L Chloride 100 Carbon Dioxide 26 Anion Gap 16 BUN 21 H Creatinine 0.75 Estim Creat Clear Calc 164.8 Estimated GFR > 60 POC Glucose 137 H Random Glucose 160 H Lactic Acid 6.2 H* 1.0 Lactic Acid F/U @ 2Hr Calcium 9.4 Phosphorus Magnesium 2.8 H Troponin I High Sens Prolactin 1.8 L Vancomycin Trough 02/09/25 02/09/25 02/09/25 06:59 07:44 08:24 WBC 12.6 H RBC 4.56 L Hgb 11.9 L Hct 36.7 L MCV 80.5 MCH 26.1 L MCHC 32.4 RDW 14.4 Plt Count 389 MPV 9.9 Immature Gran % (Auto) 3.3 H Neut % (Auto) 80.3 H Lymph % (Auto) 8.9 L [place] % (Auto) 6.3 Eos % (Auto) 0.6 Baso % (Auto) 0.6 Lymph # (Auto) 1.1 L [place] # (Auto) 0.8 Eos # (Auto) 0.1 Baso # (Auto) 0.1 Abs Immat Gran (auto) 0.42 H Absolute Neuts (auto) 10.1 H Absolute Nucleated RBC 0.000 Nucleated RBC % (auto) 0.0 Sodium 142 Potassium 4.3 D Chloride 106 Carbon Dioxide 21 L Anion Gap 19 BUN 24 H Creatinine 0.72 Estim Creat Clear Calc 184.2 Estimated GFR > 60 POC Glucose 139 H Random Glucose 136 H Lactic Acid 4.9 H* Lactic Acid F/U @ 2Hr Calcium 9.3 Phosphorus 3.7 Magnesium 2.8 H Troponin I High Sens 9.7 D Prolactin Vancomycin Trough 02/09/25 02/09/25 02/10/25 09:53 11:24 06:13 WBC 9.3 RBC 4.55 L Hgb 11.8 L Hct 37.4 L MCV 82.2 MCH 25.9 L MCHC 31.6 RDW 14.3 Plt Count 483 H MPV 8.7 L Immature Gran % (Auto) 1.5 H Neut % (Auto) 71.9 Lymph % (Auto) 16.4 L [place] % (Auto) 7.3 Eos % (Auto) 1.8 Baso % (Auto) 1.1 Lymph # (Auto) 1.5 [place] # (Auto) 0.7 Eos # (Auto) 0.2 Baso # (Auto) 0.1 Abs Immat Gran (auto) 0.14 H Absolute Neuts (auto) 6.7 Absolute Nucleated RBC 0.000 Nucleated RBC % (auto) 0.0 Sodium 140 Potassium 3.4 D Chloride 102 Carbon Dioxide 26 Anion Gap 15 BUN 25 H Creatinine 0.69 Estim Creat Clear Calc 192.2 Estimated GFR > 60 POC Glucose Random Glucose 111 Lactic Acid 2.0 Lactic Acid F/U @ 2Hr 1.2 Calcium 9.0 Phosphorus Magnesium Troponin I High Sens Prolactin Vancomycin Trough 18.2 02/10/25 11:07 WBC RBC Hgb Hct MCV MCH MCHC RDW Plt Count MPV Immature Gran % (Auto) Neut % (Auto) Lymph % (Auto) [place] % (Auto) Eos % (Auto) Baso % (Auto) Lymph # (Auto) [place] # (Auto) Eos # (Auto) Baso # (Auto) Abs Immat Gran (auto) Absolute Neuts (auto) Absolute Nucleated RBC Nucleated RBC % (auto) Sodium Potassium Chloride Carbon Dioxide Anion Gap BUN Creatinine Estim Creat Clear Calc Estimated GFR POC Glucose Random Glucose Lactic Acid Lactic Acid F/U @ 2Hr Calcium Phosphorus Magnesium Troponin I High Sens Prolactin Vancomycin Trough 18.3 Imaging Radiology Impressions: ITS Impressions Chest X-Ray 02/09/25 08:10 IMPRESSION: Patchy opacities in both lungs without change. Electronically signed by: Rei Bello MD 02/09/2025 08:35 AM [facility] Brain MRI 02/09/25 14:03 IMPRESSION: 1. No evidence of intracranial hemorrhage, acute infarction, mass effect, or edema. 2. No evidence of hippocampal atrophy or signal abnormality. No heterotopic hernadez matter or cortical dysplasia identified. Electronically signed by: Roland Sampson MD 02/09/2025 03:10 PM [facility] Medications Medications Current Medications Clonazepam (Clonazepam Odt 0.5 Mg Tab.Rapdis) 2 mg PO TID [facility] Last Admin: 02/10/25 09:24 Dose: 2 mg Clonidine HCl (Clonidine Hcl 0.2 Mg Tablet) 0.2 mg PO BEDTIME PRN; Protocol PRN Reason: Anxiety Diazepam (Diazepam 10 Mg/2 Ml Cartridge) 10 mg IVPUSH Q4H PRN PRN Reason: WITHDRAWAL Enoxaparin Sodium (Enoxaparin Sodium 40 Mg/0.4 Ml Syringe) 40 mg SUBCUT Q24H [facility] Last Admin: 02/09/25 17:33 Dose: 40 mg Furosemide (Furosemide 20 Mg/2 Ml Vial) 20 mg IVPUSH BID@0900,1800 [facility]; Protocol Last Admin: 02/10/25 09:25 Dose: 20 mg Hydromorphone HCl (Hydromorphone Hcl 2 Mg/Ml Vial) 2 mg IVPUSH Q2H PRN; Protocol PRN Reason: Pain, Severe (Pain Scale 7-10) Acetaminophen (Ofirmev) 1,000 mg in 100 mls @ 400 mls/hr IV Q6H PRN PRN Reason: Fever Last Infusion: 02/06/25 12:40 Dose: Infused Levofloxacin (Levaquin) 750 mg in 150 mls @ 100 mls/hr IV Q24H [facility] Last Infusion: 02/10/25 11:08 Dose: Infused Vancomycin HCl 1,000 mg/ (Sodium Chloride) 270 mls @ 270 mls/hr IV Q8H [facility] Levetiracetam (Levetiracetam 500 Mg Tablet) 500 mg PO BID [facility] Last Admin: 02/10/25 09:24 Dose: 500 mg Methadone HCl (Methadone Hcl 20 Mg/2 Ml Oral.Conc) 98 mg PO DAILY@0800 [facility] Last Admin: 02/10/25 09:25 Dose: 98 mg Metoprolol Tartrate (Metoprolol Tartrate 5 Mg/5 Ml Vial) 2.5 mg IVPUSH Q6H PRN; Protocol PRN Reason: tachycardia Ondansetron HCl (Ondansetron Hcl 4 Mg/2 Ml Vial) 4 mg IVPUSH Q6H PRN PRN Reason: Nausea and Vomiting Last Admin: 02/08/25 05:10 Dose: 4 mg Pharmacy Consult (Consult Rx Vancomycin Dosing) 1 each MISCELLANE DAILY PRN PRN Reason: Consult order Sodium Chloride (0.9 % Sodium Chloride Flush 3 Ml Syringe) 3 ml IVFLUSH QSHIFT SILVER Last Admin: 02/10/25 09:25 Dose: 3 ml Allergies Allergies Allergy/AdvReac Type Severity Reaction Status Date / Time No Known Allergies Allergy Verified 02/02/25 16:51 Assessment & Plan Assessment & Plan (1) Benzodiazepine dependence: Status: Acute Code(s): 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
[2025-02-10] MEDS: diazePAM 10 MG/2 ML CARTRIDGE IVPUSH (12:17)
--- NOTE | 2025-02-10 19:44 | PC.NURSE ---
NOT ALLOWED TO VISIT: Pt's mom called me (supervisor photocomposition) very upset that pt's Kinsey Allen was visiting patient without permission from family and mom was concerned about drugs being brought to patient- security came to room and found multiple bags of heroine on her. She was escorted from room and asked to refrain from visiting- I called mom back and updated her.
--- NOTE | 2025-02-10 23:06 | PC.NURSE ---
THIS PT IS NOT ALLOWED IN PT ROOM/ PT NOW HAS STRICT VISITATIONS At around 1930 on 02/10/25 this tt was found to be doing drugs in pt's bathroom and having drugs with her on two different occasions. Hospital security was involved and confiscated drugs/ filled out an incident report. Pt was informed she is no longer allowed visitation hours with the pt.
[2025-02-11] VITALS (9 sets, daily range): BP systolic 127–159; BP diastolic 64–80; PULSE 70–132; RESP 18–20; TEMP 36.2–37; O2SAT 92–96; BMI 34.4
--- NOTE | 2025-02-11 07:21 | P.PNIM_ITS ---
Subjective Subjective Date of Service: 02/11/25 Interval History: Patient denied having any hallucinations Psych consulted for possible hallucinations Continue Valium taper per Addiction Medicine consult Patient is hemodynamically stable Review of Systems Review of Systems: Yes all other systems are reviewed and are negative Physical Exam 2 Exam: Exam: General: AOx 3, eating breakfast, not in distress Resp: Mild respiratory crackles bilaterally right greater than left CVS: Tachycardia,regularly irregular Neuro: No acute gross motor deficits Vital Signs: Vital Signs: Last Vital Signs Temp 98.2 F 02/11/25 04:00 Pulse 70 02/11/25 04:00 Resp 20 02/11/25 04:00 BP 133/64 02/11/25 04:00 Pulse Ox 95 02/11/25 04:00 O2 Del Method Nasal Cannula 02/11/25 04:00 O2 Flow Rate 3 02/11/25 04:00 FiO2 60 02/07/25 12:00 Oxygen Flow Rate 4 02/08/25 21:55 BMI result Body Mass Index 34.4 Objective Data Active Medications Clonidine HCl (Clonidine Hcl 0.2 Mg Tablet) 0.2 mg PO BEDTIME PRN; Protocol PRN Reason: Anxiety Diazepam (Diazepam 10 Mg/2 Ml Cartridge) 10 mg IVPUSH Q4H PRN PRN Reason: WITHDRAWAL Last Admin: 02/10/25 12:17 Dose: 10 mg Documented By: SUDHA Diazepam (Diazepam 10 Mg/2 Ml Cartridge) 10 mg IVPUSH Q6H [facility] Enoxaparin Sodium (Enoxaparin Sodium 40 Mg/0.4 Ml Syringe) 40 mg SUBCUT Q24H [facility] Last Admin: 02/10/25 17:42 Dose: 40 mg Documented By: SUDHA Furosemide (Furosemide 20 Mg/2 Ml Vial) 20 mg IVPUSH BID@0900,1800 [facility]; Protocol Last Admin: 02/10/25 17:42 Dose: 20 mg Documented By: SUDHA Hydromorphone HCl (Hydromorphone Hcl 2 Mg/Ml Vial) 2 mg IVPUSH Q2H PRN; Protocol PRN Reason: Pain, Severe (Pain Scale 7-10) Acetaminophen (Ofirmev) 1,000 mg in 100 mls @ 400 mls/hr IV Q6H PRN PRN Reason: Fever Last Infusion: 02/06/25 12:40 Dose: Infused Documented By: CANDIDA Levofloxacin (Levaquin) 750 mg in 150 mls @ 100 mls/hr IV Q24H [facility] Last Infusion: 02/10/25 11:08 Dose: Infused Documented By: SUDHA Vancomycin HCl 1,000 mg/ (Sodium Chloride) 270 mls @ 270 mls/hr IV Q8H [facility] Last Infusion: 02/11/25 05:48 Dose: Infused Documented By: COREY Levetiracetam (Levetiracetam 500 Mg Tablet) 500 mg PO BID [facility] Last Admin: 02/10/25 20:06 Dose: 500 mg Documented By: COREY Methadone HCl (Methadone Hcl 20 Mg/2 Ml Oral.Conc) 98 mg PO DAILY@0800 [facility] Last Admin: 02/10/25 09:25 Dose: 98 mg Documented By: SUDHA Co-signed By: MICHAEL Metoprolol Tartrate (Metoprolol Tartrate 5 Mg/5 Ml Vial) 2.5 mg IVPUSH Q6H PRN; Protocol PRN Reason: tachycardia Ondansetron HCl (Ondansetron Hcl 4 Mg/2 Ml Vial) 4 mg IVPUSH Q6H PRN PRN Reason: Nausea and Vomiting Last Admin: 02/08/25 05:10 Dose: 4 mg Documented By: BETY Pharmacy Consult (Consult Rx Vancomycin Dosing) 1 each MISCELLANE DAILY PRN PRN Reason: Consult order Sodium Chloride (0.9 % Sodium Chloride Flush 3 Ml Syringe) 3 ml IVFLUSH QSHIFT [facility] Last Admin: 02/10/25 20:06 Dose: 3 ml Documented By: COREY Labs 02/11/25 08:28 02/11/25 06:50 Labs: Laboratory Results - last 24 hr 02/10/25 02/10/25 06:13 11:07 Anion Gap 15 Estim Creat Clear Calc 192.2 Estimated GFR > 60 Random Glucose 111 Calcium 9.0 Vancomycin Trough 18.3 Assessment and Plan (1) Acute respiratory failure with hypoxia: Status: Acute Plan 40-year-old male, with a background history of tobacco use, polysubstance abuse on methadone, presents to the hospital with shortness of breath, admitted with acute hypoxic respiratory failure 2/2 left lower lobe pneumonia (MRSA+ve), c/b sepsis and septic shock and intubation (02/02-02/07) in medical ICU developing moderate ARDS with superimposed polysubstance withdrawal off cocaine/heroin/benzos, transferred to medical floor 02/08/2025, c/b benzo withdrawal seizures X2 requiring IV Valium prolonged taper soon after being transferred to the floors # benzo withdrawal seizures #Polysubstance abuse - Opiate withdrawal ,Cocaine withdrawal , Benzodiazepine withdrawal #U tox +ve for cocaine, opioids, methadone, benzodiazepines in the emergency room #While in MICU, required high doses of propofol, fentanyl, midazolam, dexmedetomidine - without achieving complete sedation. U tox +ve for cocaine, opioids, methadone, benzodiazepines in the emergency room While in MICU, required high doses of propofol, fentanyl, midazolam, dexmedetomidine - without achieving complete sedation. Patient had benzo withdrawal seizures after being transferred from ICU and was initiated on Valium slow prolonged taper with good effect. Intracranial imaging EEG unremarkable, Neurology, addiction Medicine consulted. Initiated on Keppra b.i.d., maintain seizure aspiration and fall precautions. #Paroxysmal A flutter - Likely reactive post ictal phase, with good response to IV Lopressor. For now continue rate control medication only as he is in sinus rhythm. Continue to monitoring on tele and check electrolytes daily. #New onset hallucinations - likely withdrawal from heroin vs etoh vs underlying organic psych issues - Psych consult placed #AHRF requiring pressors and intubation from 02/02/2025 to 02/07/2025, Course complicated by moderate ARDS 2/2 LLL MRSA pneumonia--not hypoxic on room air currently Patient likely developed acute hypoxic respiratory failure in the setting of aspiration pneumonia and MRSA in the setting of IVDU-history is mainly from his mother and brother, patient does not recall the exact events of ingestion however the tox screen was positive for cocaine, opiates, methadone, benzos during this admission. Patient was intubated and extubated, requiring pressor support and was transitioned to the floors on 02/08/2025. During the 2 hand glass cutter, patient likely had benzo withdrawal seizures given he was on for sedative drips in the ICU and he was not even sedated, not in distress. Given IVDU and high benzo tolerance, patient likely developed benzo withdrawal seizures. His venous lactate and witnessed seizures and likely etiology suggest it is likely benzo withdrawal. Patient completed 10 day course of IV antibiotics hence discontinued them all as of today. Patient is not hypoxic on room air. - addiction medicine consultation placed - methadone 98 mg p.o. daily - COWS monitoring - clonazepam 2 mg p.o. b.i.d. - midazolam 4 mg IV push q.1 hour hourly as needed - hydromorphone 2 mg IV push q.2h hourly p.r.n. #Tobacco use Nicotine replacement therapy #Urinary retention resolved #GERD-Pantoprazole DVT prophylaxis with Lovenox while inpatient This note is constructed using voice recognition software. While every effort has been made to ensure accuracy, naphthalene operator helper errors may have been included. Disposition: This patient requires ongoing hospitalization due to the acute and severe manifestations of benzodiazepine withdrawal, including multiple witnessed tonic-clonic seizures and new-onset atrial flutter, both of which necessitated rapid response team interventions. He remains at high risk for recurrent seizures and cardiac arrhythmias, requiring close neurological and cardiac monitoring, IV benzodiazepine titration, and multidisciplinary management involving Neurology, Cardiology, and Addiction Medicine. Additionally, he has a history of intravenous drug use with difficult IV access, is being treated for possible MRSA pneumonia, and requires ongoing assessment for aspiration and fall risk. His clinical course is further complicated by high benzodiazepine tolerance, necessitating a slow and prolonged IV diazepam taper, and ongoing evaluation for other potential causes of seizures. Given the complexity of his withdrawal management, need for continuous monitoring, and risk of further life-threatening events, inpatient care remains medically necessary at this time. Total time managing care of this patient today: 103 minutes. Quality Stroke Does the patient have a stroke diagnosis?: No VTE Prior VTE?: No VTE Risk Level:: Medical - moderate - high VTE Device Contraindication: N/A - Device Ordered VTE Drug Contraindication: N/A - Med Ordered
[2025-02-11 07:38] LABS: Blood Urea Nitrogen 25 mg/dL (9-16); Calcium 9.5 mg/dL (8.4-10.2); Creatinine Clr Calc Pharmacy 190.8; Estimated Glomerular Filt Rate > 60
[2025-02-11 07:49] LABS: Anion Gap 17 (12-20); Carbon Dioxide 25 mmol/L (22-29); Chloride 105 mmol/L (96-108); Potassium 4.2 mmol/L (3.3-5.1); Sodium 143 mmol/L (135-145)
[2025-02-11] MEDS: methADONE HCl 20 MG/2 ML ORAL.CONC 98 MG PO (08:00)
[2025-02-11] MEDS: diazePAM 10 MG/2 ML CARTRIDGE IVPUSH ×3 (08:03→19:57)
--- NOTE | 2025-02-11 08:25 | HO.PM.IMPN ---
Subjective Subjective Date of Service: 02/10/25 Interval History: Patient resting comfortably Later in the day, RN stated patient is hallucinating-seeing spiders crawling and hearing voices visual and auditory But otherwise has been seizure-free, we will continue the slow Valium taper Review of Systems Review of Systems: Yes all other systems are reviewed and are negative Physical Exam Exam: Exam: General: AOx 3, eating breakfast, not in distress Resp: Mild respiratory crackles bilaterally right greater than left CVS: Tachycardia,regularly irregular Neuro: No acute gross motor deficits Vital Signs: Vital Signs: Last Vital Signs Temp 98 F 02/11/25 07:35 Pulse 99 02/11/25 07:35 Resp 18 02/11/25 07:35 BP 159/70 H 02/11/25 07:35 Pulse Ox 94 02/11/25 07:35 O2 Del Method Nasal Cannula 02/11/25 07:35 O2 Flow Rate 3 02/11/25 07:35 FiO2 60 02/07/25 12:00 Oxygen Flow Rate 4 02/08/25 21:55 BMI result Body Mass Index 34.4 Objective Data Active Medications Clonidine HCl (Clonidine Hcl 0.2 Mg Tablet) 0.2 mg PO BEDTIME PRN; Protocol PRN Reason: Anxiety Diazepam (Diazepam 10 Mg/2 Ml Cartridge) 10 mg IVPUSH Q4H PRN PRN Reason: WITHDRAWAL Last Admin: 02/10/25 12:17 Dose: 10 mg Documented By: SUDHA Diazepam (Diazepam 10 Mg/2 Ml Cartridge) 10 mg IVPUSH Q6H [facility] Last Admin: 02/11/25 08:03 Dose: 10 mg Documented By: SHAYLA Enoxaparin Sodium (Enoxaparin Sodium 40 Mg/0.4 Ml Syringe) 40 mg SUBCUT Q24H [facility] Last Admin: 02/10/25 17:42 Dose: 40 mg Documented By: SUDHA Furosemide (Furosemide 20 Mg/2 Ml Vial) 20 mg IVPUSH BID@0900,1800 [facility]; Protocol Last Admin: 02/10/25 17:42 Dose: 20 mg Hydromorphone HCl (Hydromorphone Hcl 2 Mg/Ml Vial) 2 mg IVPUSH Q2H PRN; Protocol PRN Reason: Pain, Severe (Pain Scale 7-10) Acetaminophen (Ofirmev) 1,000 mg in 100 mls @ 400 mls/hr IV Q6H PRN PRN Reason: Fever Last Infusion: 02/06/25 12:40 Dose: Infused Documented By: CANDIDA Levofloxacin (Levaquin) 750 mg in 150 mls @ 100 mls/hr IV Q24H [facility] Last Admin: 02/11/25 08:03 Dose: 100 mls/hr Documented By: SHAYLA Vancomycin HCl 1,000 mg/ (Sodium Chloride) 270 mls @ 270 mls/hr IV Q8H [facility] Last Infusion: 02/11/25 05:48 Dose: Infused Documented By: COREY Levetiracetam (Levetiracetam 500 Mg Tablet) 500 mg PO BID [facility] Last Admin: 02/11/25 08:04 Dose: 500 mg Documented By: SHAYLA Methadone HCl (Methadone Hcl 20 Mg/2 Ml Oral.Conc) 98 mg PO DAILY@0800 [facility] Last Admin: 02/11/25 08:00 Dose: 98 mg Documented By: SHAYLA Co-signed By: JUHI Metoprolol Tartrate (Metoprolol Tartrate 5 Mg/5 Ml Vial) 2.5 mg IVPUSH Q6H PRN; Protocol PRN Reason: tachycardia Ondansetron HCl (Ondansetron Hcl 4 Mg/2 Ml Vial) 4 mg IVPUSH Q6H PRN PRN Reason: Nausea and Vomiting Last Admin: 02/08/25 05:10 Dose: 4 mg Documented By: BETY Pharmacy Consult (Consult Rx Vancomycin Dosing) 1 each MISCELLANE DAILY PRN PRN Reason: Consult order Sodium Chloride (0.9 % Sodium Chloride Flush 3 Ml Syringe) 3 ml IVFLUSH QSHIFT [facility] Last Admin: 02/10/25 20:06 Dose: 3 ml Documented By: COREY Labs 02/10/25 06:13 02/11/25 06:50 Labs: Laboratory Results - last 24 hr 02/10/25 02/11/25 11:07 06:50 Anion Gap 17 Estim Creat Clear Calc 190.8 Estimated GFR > 60 Random Glucose 109 Calcium 9.5 Vancomycin Trough 18.3 Assessment and Plan (1) Acute respiratory failure with hypoxia: Status: Acute Plan 40-year-old male, with a background history of tobacco use, polysubstance abuse on methadone, presents to the hospital with shortness of breath, admitted with acute hypoxic respiratory failure 2/2 left lower lobe pneumonia (MRSA+ve), c/b sepsis and septic shock and intubation (02/02-02/07) in medical ICU developing moderate ARDS with superimposed polysubstance withdrawal off cocaine/heroin/benzos, transferred to medical floor 02/08/2025, c/b benzo withdrawal seizures X2 requiring IV Valium prolonged taper soon after being transferred to the floors BENZO WITHDRAWAL SEIZURES U tox +ve for cocaine, opioids, methadone, benzodiazepines in the emergency room While in MICU, required high doses of propofol, fentanyl, midazolam, dexmedetomidine - without achieving complete sedation. Patient had benzo withdrawal seizures after being transferred from ICU and was initiated on Valium slow prolonged taper with good effect. Intracranial imaging EEG unremarkable, Neurology, addiction Medicine consulted. Initiated on Keppra b.i.d., maintain seizure aspiration and fall precautions. Paroxysmal A flutter - Likely reactive post ictal phase, with good response to IV Lopressor. For now continue rate control medication New onset hallucinations - likely withdrawal from heroin vs etoh vs underlying psych undiagnosis - Psych consult placed AHRF requiring pressors and intubation from 02/02/2025 to 02/07/2025, Course complicated by moderate ARDS 2/2 LLL MRSA pneumonia--not hypoxic on room air currently Patient likely developed acute hypoxic respiratory failure in the setting of aspiration pneumonia and MRSA in the setting of IVDU-history is mainly from his mother and brother, patient does not recall the exact events of ingestion however the tox screen was positive for cocaine, opiates, methadone, benzos during this admission. Patient was intubated and extubated, requiring pressor support and was transitioned to the floors on 02/08/2025. During the 2 manager meeting, patient likely had benzo withdrawal seizures given he was on for sedative drips in the ICU and he was not even sedated, not in distress. Given IVDU and high benzo tolerance, patient likely developed benzo withdrawal seizures. His venous lactate and witnessed seizures and likely etiology suggest it is likely benzo withdrawal. Plan Patient has been on vancomycin and levofloxacin since admission-we will likely deescalate in a day or 2 Continue fluids Venous lactate was likely in the setting of seizures-normalized on the 2nd lab draw Polysubstance abuse - Opiate withdrawal ,Cocaine withdrawal , Benzodiazepine withdrawal U tox +ve for cocaine, opioids, methadone, benzodiazepines in the emergency room While in MICU, required high doses of propofol, fentanyl, midazolam, dexmedetomidine - without achieving complete sedation. PLAN - addiction medicine consultation placed - methadone 98 mg p.o. daily - COWS monitoring - clonazepam 2 mg p.o. b.i.d. - midazolam 4 mg IV push q.1 hour hourly as needed - hydromorphone 2 mg IV push q.2h hourly p.r.n. Tobacco use Nicotine replacement therapy can be offered to patient Urinary retention Retention of 500 cc of urine identified on bladder scan. Patient was encouraged to urinate, with good result. Monitor closely, straight cath only if necessary. GERD Pantoprazole DVT prophylaxis with Lovenox This note is constructed using voice recognition software. While every effort has been made to ensure accuracy, director agency & strategic partnerships errors may have been included. Disposition: This patient requires ongoing hospitalization due to the acute and severe manifestations of benzodiazepine withdrawal, including multiple witnessed tonic-clonic seizures and new-onset atrial flutter, both of which necessitated rapid response team interventions. He remains at high risk for recurrent seizures and cardiac arrhythmias, requiring close neurological and cardiac monitoring, IV benzodiazepine titration, and multidisciplinary management involving Neurology, Cardiology, and Addiction Medicine. Additionally, he has a history of intravenous drug use with difficult IV access, is being treated for possible MRSA pneumonia, and requires ongoing assessment for aspiration and fall risk. His clinical course is further complicated by high benzodiazepine tolerance, necessitating a slow and prolonged IV diazepam taper, and ongoing evaluation for other potential causes of seizures. Given the complexity of his withdrawal management, need for continuous monitoring, and risk of further life-threatening events, inpatient care remains medically necessary at this time. Total time managing care of this patient today: 103 minutes. Quality Stroke Does the patient have a stroke diagnosis?: No VTE Prior VTE?: No VTE Risk Level:: Medical - moderate - high VTE Device Contraindication: N/A - Device Ordered VTE Drug Contraindication: N/A - Med Ordered
[2025-02-11] MEDS: Furosemide 20 MG/2 ML VIAL IVPUSH (09:07)
[2025-02-11 09:08] LABS: Hematocrit 39.9 % (42.0-52.0); Hemoglobin 12.8 g/dl (14.0-18.0); Imm Gran Abs Auto 0.10 X10*3/uL (0.00-0.03); Imm Gran Pct Auto 1.0 % (0.0-0.4); Lymphocytes Absolute Auto 1.6 X10*3/uL (1.2-4.9); Mean Corpuscular HGB Conc 32.1 g/dl (31.0-36.0); Mean Corpuscular Hemoglobin 26.0 pg (27.0-33.0); Mean Corpuscular Volume 81.1 fL (80.0-98.0); NRBC Abs Auto 0.000 X10*3/uL (0.0-0.012); NRBC Pct Auto 0.0 /100WBC (0.0-0.2); Platelet Count 594 X10*3/uL (160-400); Red Blood Count 4.92 X10*6/uL (4.60-5.80); White Blood Count 10.3 X10*3/uL (4.8-10.8)
[2025-02-11] MEDS: 0.9 % Sodium Chloride Flush 3 ML SYRINGE IVFLUSH ×3 (09:08→20:01)
[2025-02-11 09:31] LABS: MANUAL DIFF FLAG NO
--- NOTE | 2025-02-11 11:44 | HE.PHANOTE ---
RE: VANCO DOSING Trough came back as 15.1 mg/L, renal function is stable. Continue with 1000 mg q8h, next trough is scheduled for 02/12/25 @1100.
--- NOTE | 2025-02-11 11:58 | MHC.SL.SWA ---
Speech Pathologist Impression: Oropharyngeal swallowing deemed WFL Risk of Aspiration Due to: s/p seizures, dentition status Dysphasia Diet Status: Recommend UPGRADE to Regular solids, Thin liquids with encouragement to choose softer meal items to assist with mastication efforts. Liquid Consistency and Strategies for Safe Swallow: Liquid Intake Recommendation: Thin Liquid Intake Strategies: Solid Food Consistency: Dietary Recommendations: Regular Additional Modifications to Solid Foods: Oral Medication Intake: Whole with Liquid Please contact the pharmacy regarding appropriate crushable or liquid drug formulations that are available whenever modified delivery is recommended. Compensatory Strategies and Precautions to be Taken for Safe Swallow: Sitting Upright (90 deg) Small Bites and Sips Alternate Liquids/Solids Rate of Ingestion Change Supervision While Eating and Drinking for Safe Swallow: Intermittent Supervision Foods to Avoid: Difficult to chew/harder meats and solids Swallowing Recommended Treatments: Compens. Strategy Educat. Recommendation for Speech: NA:Typical Evaluation Comment:Patient met in room for dysphagia tx. Patient with +MRSA in nares. ST donning appropriate PPE prior to entering room and doffing after completion of session. Patient given christen cracker for trial of regular solids for possible upgrade. Patient more awake and alert than previous sessions. Patient's responses more timely this date. Patient with increase in time for mastication, adequate cohesion and clearance of regular solids. Patient with no overt s/sx of penetration/aspiration. Patient denies any discomfort or pain with mastication. Recommend UPGRADE to Regular solids, Thin liquids and encourage patient to choose softer meal items to assist with mastication efforts. Patient also re-educated on use of compensatory strategies during PO intake: small sips/bites, alternate solids/liquids. GRAPPLE YARDER OPERATOR to follow-up x1 for diet tolerance. Frequency/Duration: Follow up x1 Date Range for Service Req: Timeline to reassess: Water Trainer Clinican/Clinical Fellow: No Supervisory Statement: I have reviewed and agree with the student/clinical fellow's documentation: N/A Speech Language Pathologist: Juliet Terry M.A., CCC-GRAPPLE YARDER OPERATOR
--- NOTE | 2025-02-11 12:02 | P.PNADD_ITS ---
Subjective Subjective Date of Service: 02/11/25 Reason For Visit: Atrial flutter Interim History: Patient seen in follow up. He is awake, alert, engaged in interview. Chart review shows report of visual hallucinations yesterday (02/10) When asked about this today, patient denies hallucinations, but stated, they were short staffed yesterday and patients and guards were vacuuming and it was getting in my room -dust and a couple mosquitos Denies seeing any dust or mosquitos today, states it was just yesterday He reports feeling okay, just anxious , states he has been thinking a lot about what had occurred and still being in the hospital. States that he always feel like my heart is racing and my chest is tight - reporting this is why he do Malcolm Assured patient that medications are on board to address any withdrawal sx and anxiety. Review of Systems Acute medical concerns: Yes Review of Systems Constitutional: Reports as per HPI Mental Status Exam Mental Status Exam Level of Consciousness: Awake and Alert Patient Behavior: Appropriate and Talkative Affect Description: Calm Speech Pattern: Clear Thought Content: positive for [place] [facility] Vital Signs (24Hr): Vital Signs - 24 hr 02/10/25 15:21 02/10/25 17:42 02/10/25 19:47 Temperature 97.8 F 97.8 F Pulse Rate 99 84 Respiratory Rate 18 18 Blood Pressure 140/86 H 133/84 131/81 Pulse Oximetry 98 95 Oxygen Delivery Method Nasal Cannula Room Air Oxygen Flow Rate 4 02/11/25 00:00 02/11/25 04:00 02/11/25 07:35 Temperature 98.4 F 98.2 F 98 F Pulse Rate 77 70 99 Respiratory Rate 20 20 18 Blood Pressure 141/66 H 133/64 159/70 H Pulse Oximetry 96 95 94 Oxygen Delivery Method Nasal Cannula Nasal Cannula Nasal Cannula Oxygen Flow Rate 3 3 3 BMI result Body Mass Index 34.4 Labs 02/11/25 08:28 02/11/25 06:50 Labs: Laboratory Results - last 48 hr 02/08/25 02/10/25 02/10/25 23:24 06:13 11:07 WBC 9.3 RBC 4.55 L Hgb 11.8 L Hct 37.4 L MCV 82.2 MCH 25.9 L MCHC 31.6 RDW 14.3 Plt Count 483 H MPV 8.7 L Immature Gran % (Auto) 1.5 H Neut % (Auto) 71.9 Lymph % (Auto) 16.4 L [place] % (Auto) 7.3 Eos % (Auto) 1.8 Baso % (Auto) 1.1 Lymph # (Auto) 1.5 [place] # (Auto) 0.7 Eos # (Auto) 0.2 Baso # (Auto) 0.1 Abs Immat Gran (auto) 0.14 H Absolute Neuts (auto) 6.7 Absolute Nucleated RBC 0.000 Nucleated RBC % (auto) 0.0 Sodium 140 Potassium 3.4 D Chloride 102 Carbon Dioxide 26 Anion Gap 15 BUN 25 H Creatinine 0.69 Estim Creat Clear Calc 192.2 Estimated GFR > 60 Random Glucose 111 Calcium 9.0 Prolactin 1.8 L Vancomycin Trough 18.3 Random Vancomycin 02/11/25 02/11/25 02/11/25 06:50 08:28 11:12 WBC 10.3 RBC 4.92 Hgb 12.8 L Hct 39.9 L MCV 81.1 MCH 26.0 L MCHC 32.1 RDW 13.9 Plt Count 594 H MPV 8.8 L Immature Gran % (Auto) 1.0 H Neut % (Auto) 74.6 H Lymph % (Auto) 15.9 L [place] % (Auto) 6.0 Eos % (Auto) 1.7 Baso % (Auto) 0.8 Lymph # (Auto) 1.6 [place] # (Auto) 0.6 Eos # (Auto) 0.2 Baso # (Auto) 0.1 Abs Immat Gran (auto) 0.10 H Absolute Neuts (auto) 7.7 Absolute Nucleated RBC 0.000 Nucleated RBC % (auto) 0.0 Sodium 143 Potassium 4.2 D Chloride 105 Carbon Dioxide 25 Anion Gap 17 BUN 25 H Creatinine 0.70 Estim Creat Clear Calc 190.8 Estimated GFR > 60 Random Glucose 109 Calcium 9.5 Prolactin Vancomycin Trough Random Vancomycin 15.1 Imaging Radiology Impressions: ITS Impressions Chest X-Ray 02/09/25 08:10 IMPRESSION: Patchy opacities in both lungs without change. Electronically signed by: Rei Bello MD 02/09/2025 08:35 AM [facility] Brain MRI 02/09/25 14:03 IMPRESSION: 1. No evidence of intracranial hemorrhage, acute infarction, mass effect, or edema. 2. No evidence of hippocampal atrophy or signal abnormality. No heterotopic hernadez matter or cortical dysplasia identified. Electronically signed by: Roland Sampson MD 02/09/2025 03:10 PM [facility] Medications Medications Current Medications Clonidine HCl (Clonidine Hcl 0.2 Mg Tablet) 0.2 mg PO BEDTIME PRN; Protocol PRN Reason: Anxiety Diazepam (Diazepam 10 Mg/2 Ml Cartridge) 10 mg IVPUSH Q4H PRN PRN Reason: WITHDRAWAL Last Admin: 02/10/25 12:17 Dose: 10 mg Diazepam (Diazepam 10 Mg/2 Ml Cartridge) 10 mg IVPUSH Q6H [facility] Last Admin: 02/11/25 08:03 Dose: 10 mg Enoxaparin Sodium (Enoxaparin Sodium 40 Mg/0.4 Ml Syringe) 40 mg SUBCUT Q24H [facility] Last Admin: 02/10/25 17:42 Dose: 40 mg Furosemide (Furosemide 20 Mg/2 Ml Vial) 20 mg IVPUSH BID@0900,1800 [facility]; Protocol Last Admin: 02/11/25 09:07 Dose: 20 mg Hydromorphone HCl (Hydromorphone Hcl 2 Mg/Ml Vial) 2 mg IVPUSH Q2H PRN; Protocol PRN Reason: Pain, Severe (Pain Scale 7-10) Vancomycin HCl 1,000 mg/ (Sodium Chloride) 270 mls @ 270 mls/hr IV Q8H [facility] Last Infusion: 02/11/25 05:48 Dose: Infused Levetiracetam (Levetiracetam 500 Mg Tablet) 500 mg PO BID [facility] Last Admin: 02/11/25 08:04 Dose: 500 mg Levofloxacin (Levofloxacin 750 Mg Tablet) 750 mg PO Q24H [facility] Methadone HCl (Methadone Hcl 20 Mg/2 Ml Oral.Conc) 98 mg PO DAILY@0800 [facility] Last Admin: 02/11/25 08:00 Dose: 98 mg Metoprolol Tartrate (Metoprolol Tartrate 5 Mg/5 Ml Vial) 2.5 mg IVPUSH Q6H PRN; Protocol PRN Reason: tachycardia Last Admin: 02/11/25 09:23 Dose: 2.5 mg Ondansetron HCl (Ondansetron Hcl 4 Mg/2 Ml Vial) 4 mg IVPUSH Q6H PRN PRN Reason: Nausea and Vomiting Last Admin: 02/08/25 05:10 Dose: 4 mg Pharmacy Consult (Consult Rx Vancomycin Dosing) 1 each MISCELLANE DAILY PRN PRN Reason: Consult order Sodium Chloride (0.9 % Sodium Chloride Flush 3 Ml Syringe) [facility] Last Admin: 02/11/25 09:08 Dose: 3 ml Allergies Allergies Allergy/AdvReac Type Severity Reaction Status Date / Time No Known Allergies Allergy Verified 02/02/25 16:51 Assessment & Plan Assessment & Plan (1) Benzodiazepine dependence: Status: Acute Code(s): F13.20 - Sedative, hypnotic or anxiolytic dependence, uncomplicated Assessment and Plan: * ?delirium -withdrawal/medication induced * t/w to collaborate with psychiatric provider around management ---including disposition * no changes to current diazepam order * home meds reviewed--on several psychiatric medications that have not been restarted-will defer to psych Total time managing care of this patient today _40___ minutes.
--- NOTE | 2025-02-11 13:47 | MHC.CLN ---
F/U PO INTAKE 25-50% DIET RX: REGULAR-APPROPRIATE MONITOR PO INTAKE CLOSELY RD TO FOLLOW WEEKLY
--- NOTE | 2025-02-11 14:06 | PC.NURSE ---
Pt alert and oriented x 4, speaking slowly. Denies pain today. Eating normally. Pt is on room air while up to chair at this time, 93%. Lung sounds clear. Will consider O2 per NC while in bed. Pt has been tachycardic, up to 140's. PRN metoprolol given, New order for PO metoprolol started. Heartrate still 120's at this time. Pt is standby assist, mildly insteady. Walked to toilet x1.
--- NOTE | 2025-02-11 14:09 | MHC.CM.PN ---
Pt. not ready to DC, he is withdrawing from mult. drugs, not eating, will have Care team eval when medically cleared.
--- NOTE | 2025-02-11 15:49 | PM.PSYCN ---
History of Present Illness Date of Service: 02/11/25 Chief Complaint: Atrial flutter Reason for Consult: active hallucinations Requesting physician: Anju Rao Discussed with referring provider: Yes Sources of Information: patient interviewed and chart reviewed HPI Narrative: Patient is a 40-year-old male, with history of tobacco use, polysubstance abuse on methadone, presents to the hospital with shortness of breath, admitted with acute hypoxic respiratory failure 2/2 left lower lobe pneumonia (MRSA+ve), c/b sepsis and septic shock and intubation (02/02-02/07) in medical ICU developing moderate ARDS with superimposed polysubstance withdrawal off cocaine/heroin/benzos, transferred to medical floor 02/08/2025, c/b benzo withdrawal seizures X2 requiring IV Valium prolonged taper soon after being transferred to the floors. Psychiatric consult placed for: Active hallucinations. During psychiatric assessment, patient presents alert and oriented x3. calm and cooperative. Patient reports feeling okay today; he was able to discuss what brought him into the hospital. When T/W brought up him mentioning to nursing of seeing spiders and staff, and security vacuuming in the hallway ; pt stated, I saw security guards and some of the patients vacuuming. Some of the stuff in the air got into my room. They were helping because they were short staffed . Patient reports he was not asked to help because I was complaining about it . Patient also mentioned there was a helicopter on the roof last night who was giving people rides and gave my kids and my mom a little ride . He denies SI/HI/VH/AH. Patient stated, I swear I'm not hallucinating. It really did happen . Patient reports he has been taking his psychiatric medications for awhile but can not recall time frame. He reports taking 7 1/2mg of benzodiazepines daily for the past 6-8 months . Past Psychiatric History: denies hx of inpatient psychiatric hospitalization. denies hx of SA/SIB. Reports having outpatient providers through [facility]. Medical Evaluation Reviewed: Yes [facility] Medical History (Updated 02/11/25 @ 17:28 by Lydia Ryan NP) halfway use of drug Chronic lower back pain Surgical History No pertinent past surgical history Family History: Mother: anxiety Father: substance use Social History: Lives with ex-. . 2 kids (2 and 1 y/o). 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 Some college. Substance History: pt reports taking 7 1/2mg of benzodiazepines for the past 6-8 months. Trauma History: yes Diagnostics Vital Signs (24Hr): Vital Signs - 24 hr 02/10/25 17:42 02/10/25 19:47 02/11/25 00:00 Temperature 97.8 F 98.4 F Pulse Rate 84 77 Respiratory Rate 18 20 Blood Pressure 133/84 131/81 141/66 H Pulse Oximetry 95 96 Oxygen Delivery Method Room Air Nasal Cannula Oxygen Flow Rate 3 02/11/25 04:00 02/11/25 07:35 02/11/25 09:15 Temperature 98.2 F 98 F Pulse Rate 70 99 132 H Respiratory Rate 20 18 Blood Pressure 133/64 159/70 H Pulse Oximetry 95 94 Oxygen Delivery Method Nasal Cannula Nasal Cannula Oxygen Flow Rate 3 3 02/11/25 12:00 02/11/25 13:23 Temperature 97.2 F Pulse Rate 95 126 H Respiratory Rate 18 Blood Pressure 131/78 Pulse Oximetry 92 Oxygen Delivery Method Nasal Cannula Oxygen Flow Rate 2 BMI result Body Mass Index 34.4 Labs 02/11/25 08:28 02/11/25 06:50 Labs: Laboratory Results - last 48 hr 02/08/25 02/10/25 02/10/25 23:24 06:13 11:07 WBC 9.3 RBC 4.55 L Hgb 11.8 L Hct 37.4 L MCV 82.2 MCH 25.9 L MCHC 31.6 RDW 14.3 Plt Count 483 H MPV 8.7 L Immature Gran % (Auto) 1.5 H Neut % (Auto) 71.9 Lymph % (Auto) 16.4 L [place] % (Auto) 7.3 Eos % (Auto) 1.8 Baso % (Auto) 1.1 Lymph # (Auto) 1.5 [place] # (Auto) 0.7 Eos # (Auto) 0.2 Baso # (Auto) 0.1 Abs Immat Gran (auto) 0.14 H Absolute Neuts (auto) 6.7 Absolute Nucleated RBC 0.000 Nucleated RBC % (auto) 0.0 Sodium 140 Potassium 3.4 D Chloride 102 Carbon Dioxide 26 Anion Gap 15 BUN 25 H Creatinine 0.69 Estim Creat Clear Calc 192.2 Estimated GFR > 60 Random Glucose 111 Calcium 9.0 Prolactin 1.8 L Vancomycin Trough 18.3 Random Vancomycin 02/11/25 02/11/25 02/11/25 06:50 08:28 11:12 WBC 10.3 RBC 4.92 Hgb 12.8 L Hct 39.9 L MCV 81.1 MCH 26.0 L MCHC 32.1 RDW 13.9 Plt Count 594 H MPV 8.8 L Immature Gran % (Auto) 1.0 H Neut % (Auto) 74.6 H Lymph % (Auto) 15.9 L [place] % (Auto) 6.0 Eos % (Auto) 1.7 Baso % (Auto) 0.8 Lymph # (Auto) 1.6 [place] # (Auto) 0.6 Eos # (Auto) 0.2 Baso # (Auto) 0.1 Abs Immat Gran (auto) 0.10 H Absolute Neuts (auto) 7.7 Absolute Nucleated RBC 0.000 Nucleated RBC % (auto) 0.0 Sodium 143 Potassium 4.2 D Chloride 105 Carbon Dioxide 25 Anion Gap 17 BUN 25 H Creatinine 0.70 Estim Creat Clear Calc 190.8 Estimated GFR > 60 Random Glucose 109 Calcium 9.5 Prolactin Vancomycin Trough Random Vancomycin 15.1 Imaging Radiology Impressions: ITS Impressions Chest X-Ray 02/09/25 08:10 IMPRESSION: Patchy opacities in both lungs without change. Electronically signed by: Rei Bello MD 02/09/2025 08:35 AM EST RP Brain MRI 02/09/25 14:03 IMPRESSION: 1. No evidence of intracranial hemorrhage, acute infarction, mass effect, or edema. 2. No evidence of hippocampal atrophy or signal abnormality. No heterotopic hernadez matter or cortical dysplasia identified. Electronically signed by: Roland Sampson MD 02/09/2025 03:10 PM EST RP Mental Status Exam Mental Status Exam Patient Appearance: Appropriate Patient Orientation: Person, Place, Time and Situation Level of Consciousness: Awake and Alert Patient Behavior: Appropriate, Cooperative and Good Eye Contact Mood Description: Calm Affect Description: Calm Ability to Follow Directions: Good Speech Pattern: Clear Hallucinations: None Delusions: Bizarre Thought Process: Intact Thought Content: positive for Intact Medications Medications Current Medications Clonidine HCl (Clonidine Hcl 0.2 Mg Tablet) 0.2 mg PO BEDTIME PRN; Protocol PRN Reason: Anxiety Diazepam (Diazepam 10 Mg/2 Ml Cartridge) 10 mg IVPUSH Q4H PRN PRN Reason: WITHDRAWAL Last Admin: 02/10/25 12:17 Dose: 10 mg Diazepam (Diazepam 10 Mg/2 Ml Cartridge) 10 mg IVPUSH Q6H [facility] Last Admin: 02/11/25 13:24 Dose: 10 mg Enoxaparin Sodium (Enoxaparin Sodium 40 Mg/0.4 Ml Syringe) 40 mg SUBCUT Q24H [facility] Last Admin: 02/10/25 17:42 Dose: 40 mg Hydromorphone HCl (Hydromorphone Hcl 2 Mg/Ml Vial) 2 mg IVPUSH Q2H PRN; Protocol PRN Reason: Pain, Severe (Pain Scale 7-10) Levetiracetam (Levetiracetam 500 Mg Tablet) 500 mg PO BID [facility] Last Admin: 02/11/25 08:04 Dose: 500 mg Methadone HCl (Methadone Hcl 20 Mg/2 Ml Oral.Conc) 98 mg PO DAILY@0800 [facility] Last Admin: 02/11/25 08:00 Dose: 98 mg Metoprolol Tartrate (Metoprolol Tartrate 25 Mg Tablet) 25 mg PO BID [facility]; Protocol Last Admin: 02/11/25 13:23 Dose: 25 mg Ondansetron HCl (Ondansetron Hcl 4 Mg/2 Ml Vial) 4 mg IVPUSH Q6H PRN PRN Reason: Nausea and Vomiting Last Admin: 02/08/25 05:10 Dose: 4 mg Pharmacy Consult (Consult Rx Vancomycin Dosing) 1 each MISCELLANE DAILY PRN PRN Reason: Consult order Sodium Chloride (0.9 % Sodium Chloride Flush 3 Ml Syringe) 3 ml IVFLUSH QSHIFT [facility] Last Admin: 02/11/25 09:08 Dose: 3 ml Allergies Allergies Allergy/AdvReac Type Severity Reaction Status Date / Time No Known Allergies Allergy Verified 02/02/25 16:51 Assessment & Plan Assessment & Plan (1) Delusional disorder: Status: Acute Code(s): F22 - Delusional disorders Plan Recommendation: -Restart home medications of Abilify 20mg PO bedtime and Sertraline 200mg PO daily. -continue to taper off benzodiazepines -continue to monitor for altered mental status -reconsult psychiatry if needed. Total time managing care of this patient today _30___ minutes. Patient educated on: diagnosis and medication risk/benefits
--- NOTE | 2025-02-11 17:44 | P.CDIM_ITS ---
PROVIDER RESPONSE TEXT: To clarify, the appropriate diagnosis supported by the clinical indicators: Acute lactic acidosis QUERY TEXT: PHYSICIAN'S DOCUMENTATION REQUEST Date of Query: 02/10/2025 09:06 AM EST Patient Name: Kumar Adair Admit Date: 02/02/2025 Dear Anju Rao MD, A review of the medical record indicates additional documentation may be needed. Please review below and update the documentation accordingly. Clinical Indicators: LABS: Lactic acidosis 6.2 H* 4.9 H* Based on the above, is there a diagnosis that correlates with these findings? Acute lactic acidosis Labs indicate a diagnosis of (please specify) Other (explain) Clinically unable to determine (explain) Thank you, Vickie Mueller, CCS, CDIS Use of terms such as suspected, likely, concern for, or probable (associated with a specific diagnosis that is being evaluated, monitored, or treated as if it exists) are acceptable and can be coded in the inpatient setting, when documented at the time of discharge. Please use your independent medical judgment in providing your response. THIS QUERY IS PART OF THE PERMANENT MEDICAL RECORD
[2025-02-12] MEDS: diazePAM 10 MG/2 ML CARTRIDGE IVPUSH ×4 (02:03→21:05)
[2025-02-12 03:04] VITALS: BP 128/77; PULSE 84; RESP 19; TEMP 36.7; O2SAT 92
[2025-02-12 06:00] VITALS: BMI 34.7
[2025-02-12] MEDS: 0.9 % Sodium Chloride Flush 3 ML SYRINGE IVFLUSH ×3 (07:51→21:06)
[2025-02-12] MEDS: methADONE HCl 20 MG/2 ML ORAL.CONC 98 MG PO (07:54)
[2025-02-12 08:00] VITALS: BP 129/82; PULSE 94; RESP 18; TEMP 36.7; O2SAT 93
--- NOTE | 2025-02-12 11:06 | HO.ADDICTPRO ---
Subjective Subjective Date of Service: 02/12/25 Reason For Visit: Atrial flutter Interim History: Patient seen in follow up Awake, alert, pleasant no withdrawal sx noted or reported has not required any PRN IV diazepam currently receiving diazepam 10mg Q6H IV no seizures since Wednesday 02/07 seen by psych on 02/11 d/t hallucinations --noted that home meds had not been restarted (abilify, sertraline and gabapentin) Review of Systems Acute medical concerns: Yes Review of Systems Constitutional: Reports as per HPI and Reports no additional constitutional complaints Mental Status Exam Mental Status Exam Patient Appearance: Well Grooomed Level of Consciousness: Awake and Alert Patient Behavior: Appropriate and Cooperative Affect Description: Calm Speech Pattern: Clear Thought Content: positive for [place] Judgement: Fair Diagnostics Vital Signs (24Hr): Vital Signs - 24 hr 02/11/25 12:00 02/11/25 13:23 02/11/25 15:53 Temperature 97.2 F 97.3 F Pulse Rate 95 126 H 93 Respiratory Rate 18 18 Blood Pressure 131/78 136/79 Pulse Oximetry 92 92 Oxygen Delivery Method Nasal Cannula Room Air Oxygen Flow Rate 2 02/11/25 19:29 02/11/25 23:23 02/12/25 03:04 Temperature 98.6 F 97.7 F 98.1 F Pulse Rate 84 81 84 Respiratory Rate 19 18 19 Blood Pressure 128/80 127/78 128/77 Pulse Oximetry 93 93 92 Oxygen Delivery Method Room Air Room Air Room Air Oxygen Flow Rate 02/12/25 08:00 Temperature 98.0 F Pulse Rate 94 Respiratory Rate 18 Blood Pressure 129/82 Pulse Oximetry 93 Oxygen Delivery Method Nasal Cannula Oxygen Flow Rate 3 BMI result Body Mass Index 34.7 Labs 02/12/25 11:44 02/12/25 11:44 Labs: Laboratory Results - last 48 hr 02/10/25 02/11/25 02/11/25 11:07 06:50 08:28 WBC 10.3 RBC 4.92 Hgb 12.8 L Hct 39.9 L MCV 81.1 MCH 26.0 L MCHC 32.1 RDW 13.9 Plt Count 594 H MPV 8.8 L Immature Gran % (Auto) 1.0 H Neut % (Auto) 74.6 H Lymph % (Auto) 15.9 L [place] % (Auto) 6.0 Eos % (Auto) 1.7 Baso % (Auto) 0.8 Lymph # (Auto) 1.6 [place] # (Auto) 0.6 Eos # (Auto) 0.2 Baso # (Auto) 0.1 Abs Immat Gran (auto) 0.10 H Absolute Neuts (auto) 7.7 Absolute Nucleated RBC 0.000 Nucleated RBC % (auto) 0.0 Sodium 143 Potassium 4.2 D Chloride 105 Carbon Dioxide 25 Anion Gap 17 BUN 25 H Creatinine 0.70 Estim Creat Clear Calc 190.8 Estimated GFR > 60 Random Glucose 109 Calcium 9.5 Vancomycin Trough 18.3 Random Vancomycin 02/11/25 11:12 WBC RBC Hgb Hct MCV MCH MCHC RDW Plt Count MPV Immature Gran % (Auto) Neut % (Auto) Lymph % (Auto) [place] % (Auto) Eos % (Auto) Baso % (Auto) Lymph # (Auto) [place] # (Auto) Eos # (Auto) Baso # (Auto) Abs Immat Gran (auto) Absolute Neuts (auto) Absolute Nucleated RBC Nucleated RBC % (auto) Sodium Potassium Chloride Carbon Dioxide Anion Gap BUN Creatinine Estim Creat Clear Calc Estimated GFR Random Glucose Calcium Vancomycin Trough Random Vancomycin 15.1 Imaging Radiology Impressions: ITS Impressions Chest X-Ray 02/09/25 08:10 IMPRESSION: Patchy opacities in both lungs without change. Electronically signed by: Rei Bello MD 02/09/2025 08:35 AM EST RP Brain MRI 02/09/25 14:03 IMPRESSION: 1. No evidence of intracranial hemorrhage, acute infarction, mass effect, or edema. 2. No evidence of hippocampal atrophy or signal abnormality. No heterotopic hernadez matter or cortical dysplasia identified. Electronically signed by: Roland Sampson MD 02/09/2025 03:10 PM EST RP Medications Medications Current Medications Albuterol Sulfate (Albuterol Sulfate 90 Mcg 8 Gm Inhaler) 2 puff INHALE QID PRN PRN Reason: shortness of breath or wheezing Aripiprazole (Aripiprazole 20 Mg Tablet) 20 mg PO BEDTIME [facility] Last Admin: 02/11/25 19:50 Dose: 20 mg Clonazepam (Clonazepam 0.5 Mg Tablet) 0.5 mg PO BID [facility] Last Admin: 02/11/25 19:51 Dose: 0.5 mg Clonidine HCl (Clonidine Hcl 0.2 Mg Tablet) 0.2 mg PO BEDTIME PRN; Protocol PRN Reason: Anxiety Diazepam (Diazepam 10 Mg/2 Ml Cartridge) 10 mg IVPUSH Q4H PRN PRN Reason: WITHDRAWAL Last Admin: 02/10/25 12:17 Dose: 10 mg Diazepam (Diazepam 10 Mg/2 Ml Cartridge) 10 mg IVPUSH Q6H [facility] Stop: 02/13/25 02:00 Last Admin: 02/12/25 07:51 Dose: 10 mg Diazepam (Diazepam 5 Mg Tablet) 10 mg PO Q8H [facility] Enoxaparin Sodium (Enoxaparin Sodium 40 Mg/0.4 Ml Syringe) 40 mg SUBCUT Q24H [facility] Last Admin: 02/11/25 18:07 Dose: 40 mg Gabapentin (Gabapentin 400 Mg Capsule) 800 mg PO TID [facility] Last Admin: 02/12/25 08:01 Dose: 800 mg Hydromorphone HCl (Hydromorphone Hcl 2 Mg/Ml Vial) 2 mg IVPUSH Q2H PRN; Protocol PRN Reason: Pain, Severe (Pain Scale 7-10) Levetiracetam (Levetiracetam 500 Mg Tablet) 500 mg PO BID [facility] Last Admin: 02/12/25 08:00 Dose: 500 mg Methadone HCl (Methadone Hcl 20 Mg/2 Ml Oral.Conc) 98 mg PO DAILY@0800 [facility] Last Admin: 02/12/25 07:54 Dose: 98 mg Metoprolol Tartrate (Metoprolol Tartrate 25 Mg Tablet) 25 mg PO BID [facility]; Protocol Last Admin: 02/12/25 08:00 Dose: 25 mg Ondansetron HCl (Ondansetron Hcl 4 Mg/2 Ml Vial) 4 mg IVPUSH Q6H PRN PRN Reason: Nausea and Vomiting Last Admin: 02/08/25 05:10 Dose: 4 mg Sertraline HCl (Sertraline Hcl 100 Mg Tablet) 200 mg PO DAILY [facility] Last Admin: 02/12/25 08:01 Dose: 200 mg Sodium Chloride (0.9 % Sodium Chloride Flush 3 Ml Syringe) 3 ml IVFLUSH QSHIFT [facility] Last Admin: 02/12/25 07:51 Dose: 3 ml Allergies Allergies Allergy/AdvReac Type Severity Reaction Status Date / Time No Known Allergies Allergy Verified 02/02/25 16:51 Assessment & Plan Assessment & Plan (1) Benzodiazepine dependence: Status: Acute Code(s): F13.20 - Sedative, hypnotic or anxiolytic dependence, uncomplicated Assessment and Plan: case discussed with attending provider -including looking at dispo will continue IV Diazepam 10mg Q6 today. In AM will transition to PO Diazepam 10mg q8H no additional changes at this time Total time managing care of this patient today ___35_ minutes.
[2025-02-12 11:53] LABS: MANUAL DIFF FLAG NO
[2025-02-12 11:59] LABS: Hematocrit 40.5 % (42.0-52.0); Hemoglobin 13.2 g/dl (14.0-18.0); Imm Gran Abs Auto 0.09 X10*3/uL (0.00-0.03); Imm Gran Pct Auto 0.7 % (0.0-0.4); Lymphocytes Absolute Auto 3.3 X10*3/uL (1.2-4.9); Mean Corpuscular HGB Conc 32.6 g/dl (31.0-36.0); Mean Corpuscular Hemoglobin 26.5 pg (27.0-33.0); Mean Corpuscular Volume 81.2 fL (80.0-98.0); NRBC Abs Auto 0.000 X10*3/uL (0.0-0.012); NRBC Pct Auto 0.0 /100WBC (0.0-0.2); Platelet Count 638 X10*3/uL (160-400); Red Blood Count 4.99 X10*6/uL (4.60-5.80); White Blood Count 12.9 X10*3/uL (4.8-10.8)
[2025-02-12 12:00] VITALS: BP 134/75; PULSE 85; RESP 18; TEMP 36.6; O2SAT 94
[2025-02-12 12:27] LABS: Anion Gap 14 (12-20); Blood Urea Nitrogen 21 mg/dL (9-16); Calcium 9.6 mg/dL (8.4-10.2); Carbon Dioxide 27 mmol/L (22-29); Chloride 105 mmol/L (96-108); Creatinine Clr Calc Pharmacy 178.9; Estimated Glomerular Filt Rate > 60; Potassium 3.7 mmol/L (3.3-5.1); Sodium 142 mmol/L (135-145)
--- NOTE | 2025-02-12 13:51 | MHC.SL.SWA ---
Speech Pathologist Impression: Oropharyngeal swallow function deemed WFL Risk of Aspiration Due to: Dysphasia Diet Status: Recommend CONTINUE Regular solids, Thin liquids; D/C from ST Liquid Consistency and Strategies for Safe Swallow: Liquid Intake Recommendation: Thin Liquid Intake Strategies: Solid Food Consistency: Dietary Recommendations: Regular Additional Modifications to Solid Foods: Oral Medication Intake: Whole with Liquid Please contact the pharmacy regarding appropriate crushable or liquid drug formulations that are available whenever modified delivery is recommended. Compensatory Strategies and Precautions to be Taken for Safe Swallow: Sitting Upright (90 deg) Small Bites and Sips Alternate Liquids/Solids Rate of Ingestion Change Supervision While Eating and Drinking for Safe Swallow: Intermittent Supervision Foods to Avoid: Difficult to chew/harder meats and solids Swallowing Recommended Treatments: Compens. Strategy Educat. Recommendation for Speech: NA:Typical Evaluation Comment: Patient met in room for dysphagia tx/follow-up x1. Patient observed during lunch; lunch of softer regular solids. Patient with timely mastication, adequate cohesion and clearance. Patient with no s/sx of penetration/aspiration. Patient tolerating diet of regular solids, thin liquids. Patient at baseline. Patient discharged from speech therapy this date. Recommend CONTINUE Regular solids, Thin liquids and encourage patient to select softer items for ease of mastication efforts. Patient in agreement with discharge. RN notified of discharge in-person. Please re-consult if any concerns/difficulties arise. Date Range for Service Req: Timeline to reassess: Special Weapons And Tactics Officer Clinican/Clinical Fellow: No Supervisory Statement: I have reviewed and agree with the student/clinical fellow's documentation: N/A Speech Language Pathologist: Juliet Terry M.A., CCC-[employer]
[2025-02-12 16:00] VITALS: BP 124/71; PULSE 82; RESP 20; TEMP 36.5; O2SAT 93
--- NOTE | 2025-02-12 18:14 | HO.PM.IMPN ---
Subjective Subjective Date of Service: 02/12/25 Interval History: Pt feeling well overall No acute events overnight Denies auditory or visual hallucinations No acute medical complaints Continues on benzo taper Review of Systems Review of Systems: Yes all other systems are reviewed and are negative Physical Exam Exam: Exam: General: AOx3, no acute distress Resp: CTA bilaterally CVS: S1, S2, RRR GI: +BS, NT, no distention Skin: Warm, dry Neuro: Cranial nerves II-XII grossly intact bilaterally. Motor grossly intact bilaterally Extremities: No edema Psych: Calm, cooperative Vital Signs: Vital Signs: Last Vital Signs Temp 97.7 F 02/12/25 16:00 Pulse 82 02/12/25 16:00 Resp 20 02/12/25 16:00 BP 124/71 02/12/25 16:00 Pulse Ox 93 02/12/25 16:00 O2 Del Method Room Air 02/12/25 16:00 O2 Flow Rate 3 02/12/25 08:00 FiO2 60 02/07/25 12:00 Oxygen Flow Rate 4 02/08/25 21:55 BMI result Body Mass Index 34.7 Objective Data Active Medications Albuterol Sulfate (Albuterol Sulfate 90 Mcg 8 Gm Inhaler) 2 puff INHALE QID PRN PRN Reason: shortness of breath or wheezing Aripiprazole (Aripiprazole 20 Mg Tablet) 20 mg PO BEDTIME [facility] Last Admin: 02/11/25 19:50 Dose: 20 mg Documented By: HAY Clonazepam (Clonazepam 0.5 Mg Tablet) 0.5 mg PO BID [facility] Last Admin: 02/12/25 11:57 Dose: 0.5 mg Documented By: SHAUN Clonidine HCl (Clonidine Hcl 0.2 Mg Tablet) 0.2 mg PO BEDTIME PRN; Protocol PRN Reason: Anxiety Diazepam (Diazepam 10 Mg/2 Ml Cartridge) 10 mg IVPUSH Q4H PRN PRN Reason: WITHDRAWAL Last Admin: 02/10/25 12:17 Dose: 10 mg Documented By: SUDHA Diazepam (Diazepam 10 Mg/2 Ml Cartridge) 10 mg IVPUSH Q6H [facility] Stop: 02/13/25 02:00 Last Admin: 02/12/25 15:20 Dose: 10 mg Documented By: SHAUN Diazepam (Diazepam 5 Mg Tablet) 10 mg PO Q8H [facility] Enoxaparin Sodium (Enoxaparin Sodium 40 Mg/0.4 Ml Syringe) 40 mg SUBCUT Q24H [facility] Last Admin: 02/11/25 18:07 Dose: 40 mg Documented By: SHAYLA Gabapentin (Gabapentin 400 Mg Capsule) 800 mg PO TID [facility] Last Admin: 02/12/25 15:20 Dose: 800 mg Documented By: SHAUN Levetiracetam (Levetiracetam 500 Mg Tablet) 500 mg PO BID [facility] Last Admin: 02/12/25 08:00 Dose: 500 mg Documented By: SHAUN Methadone HCl (Methadone Hcl 20 Mg/2 Ml Oral.Conc) 98 mg PO DAILY@0800 [facility] Last Admin: 02/12/25 07:54 Dose: 98 mg Documented By: SHAUN Co-signed By: JUHI Metoprolol Tartrate (Metoprolol Tartrate 25 Mg Tablet) 25 mg PO BID [facility]; Protocol Last Admin: 02/12/25 08:00 Dose: 25 mg Documented By: SHAUN Ondansetron HCl (Ondansetron Hcl 4 Mg/2 Ml Vial) 4 mg IVPUSH Q6H PRN PRN Reason: Nausea and Vomiting Last Admin: 02/08/25 05:10 Dose: 4 mg Documented By: BETY Sertraline HCl (Sertraline Hcl 100 Mg Tablet) 200 mg PO DAILY [facility] Last Admin: 02/12/25 08:01 Dose: 200 mg Documented By: SHAUN Sodium Chloride (0.9 % Sodium Chloride Flush 3 Ml Syringe) 3 ml IVFLUSH QSHIFT [facility] Last Admin: 02/12/25 15:20 Dose: 3 ml Documented By: SHAUN Labs 02/12/25 11:44 02/12/25 11:44 Labs: Laboratory Results - last 24 hr 02/12/25 11:44 MCV 81.2 MCH 26.5 L MCHC 32.6 RDW 13.9 Plt Count 638 H MPV 8.8 L Immature Gran % (Auto) 0.7 H Neut % (Auto) 66.0 Lymph % (Auto) 25.2 Stokes % (Auto) 5.5 Eos % (Auto) 1.7 Baso % (Auto) 0.9 Lymph # (Auto) 3.3 Stokes # (Auto) 0.7 Eos # (Auto) 0.2 Baso # (Auto) 0.1 Abs Immat Gran (auto) 0.09 H Absolute Neuts (auto) 8.5 H Absolute Nucleated RBC 0.000 Nucleated RBC % (auto) 0.0 Anion Gap 14 Estim Creat Clear Calc 178.9 Estimated GFR > 60 Random Glucose 125 H Calcium 9.6 Random Vancomycin 2.4 L Assessment and Plan (1) Benzodiazepine withdrawal with complication: Status: Acute Plan 40-year-old male, with a background history of tobacco use, polysubstance abuse on methadone, presents to the hospital with shortness of breath, admitted with acute hypoxic respiratory failure 2/2 left lower lobe pneumonia (MRSA+ve), c/b sepsis and septic shock and intubation (02/02-02/07) in medical ICU developing moderate ARDS with superimposed polysubstance withdrawal off cocaine/heroin/benzos, transferred to medical floor 02/08/2025, c/b benzo withdrawal seizures X2 on 02/09 requiring IV Valium prolonged taper soon after being transferred to the floors BENZO WITHDRAWAL SEIZURES U tox +ve for cocaine, opioids, methadone, benzodiazepines in the emergency room While in MICU, required high doses of propofol, fentanyl, midazolam, dexmedetomidine - without achieving complete sedation. Patient had benzo withdrawal seizures after being transferred from ICU and was initiated on Valium slow prolonged taper with good effect. Intracranial imaging EEG unremarkable, Neurology, addiction Medicine consulted. Initiated on Keppra b.i.d., maintain seizure aspiration and fall precautions. Will continue slow benzo taper: continue IV Diazepam 10mg Q6 today and in AM will transition to PO Diazepam 10mg q8H. Paroxysmal A flutter - Likely reactive post ictal phase, with good response to IV Lopressor. For now continue rate control medication New onset hallucinations - likely withdrawal from heroin vs etoh vs underlying psych undiagnosis - Psych consult placed, recommend restarting Abilify 20mg PO bedtime and Sertraline 200mg PO daily. AHRF requiring pressors and intubation from 02/02/2025 to 02/07/2025, Course complicated by moderate ARDS 2/2 LLL MRSA pneumonia--not hypoxic on room air currently Patient likely developed acute hypoxic respiratory failure in the setting of aspiration pneumonia and MRSA in the setting of IVDU-history is mainly from his mother and brother, patient does not recall the exact events of ingestion however the tox screen was positive for cocaine, opiates, methadone, benzos during this admission. Patient was intubated and extubated, requiring pressor support and was transitioned to the floors on 02/08/2025. 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 Given IVDU and high benzo tolerance, patient likely developed benzo withdrawal seizures. His venous lactate and witnessed seizures and likely etiology suggest it is likely benzo withdrawal. Plan Patient has been on vancomycin and levofloxacin since admission-we will likely deescalate in a day or 2 Continue fluids Venous lactate was likely in the setting of seizures-normalized on the 2nd lab draw Polysubstance abuse - Opiate withdrawal ,Cocaine withdrawal , Benzodiazepine withdrawal U tox +ve for cocaine, opioids, methadone, benzodiazepines in the emergency room While in MICU, required high doses of propofol, fentanyl, midazolam, dexmedetomidine - without achieving complete sedation. PLAN - addiction medicine consultation placed - methadone 98 mg p.o. daily - COWS monitoring - clonazepam 2 mg p.o. b.i.d. - midazolam 4 mg IV push q.1 hour hourly as needed - hydromorphone 2 mg IV push q.2h hourly p.r.n. Tobacco use Nicotine replacement therapy can be offered to patient Urinary retention Retention of 500 cc of urine identified on bladder scan. Patient was encouraged to urinate, with good result. Monitor closely, straight cath only if necessary. GERD Pantoprazole DVT prophylaxis with Lovenox Disposition: This patient requires ongoing hospitalization due to the acute and severe manifestations of benzodiazepine withdrawal, including multiple witnessed tonic-clonic seizures and new-onset atrial flutter, both of which necessitated rapid response team interventions. He remains at high risk for recurrent seizures and cardiac arrhythmias, requiring close neurological and cardiac monitoring, IV benzodiazepine titration, and multidisciplinary management involving Neurology, Cardiology, and Addiction Medicine. Additionally, he has a history of intravenous drug use with difficult IV access, is being treated for possible MRSA pneumonia, and requires ongoing assessment for aspiration and fall risk. His clinical course is further complicated by high benzodiazepine tolerance, necessitating a slow and prolonged IV diazepam taper, and ongoing evaluation for other potential causes of seizures. Given the complexity of his withdrawal management, need for continuous monitoring, and risk of further life-threatening events, inpatient care remains medically necessary at this time. Quality Stroke Does the patient have a stroke diagnosis?: No VTE Prior VTE?: No VTE Risk Level:: Medical - moderate - high VTE Device Contraindication: N/A - Device Ordered VTE Drug Contraindication: N/A - Med Ordered
[2025-02-12 19:49] VITALS: BP 140/78; PULSE 92; RESP 18; TEMP 36.7; O2SAT 92
[2025-02-13] VITALS (7 sets, daily range): BP systolic 116–124; BP diastolic 68–80; PULSE 78–103; RESP 16–20; TEMP 36–36.7; O2SAT 92–94; BMI 34.9
[2025-02-13] MEDS: diazePAM 10 MG/2 ML CARTRIDGE IVPUSH (02:16)
[2025-02-13 07:12] LABS: MANUAL DIFF FLAG NO
[2025-02-13 07:17] LABS: Hematocrit 39.9 % (42.0-52.0); Hemoglobin 12.8 g/dl (14.0-18.0); Imm Gran Abs Auto 0.08 X10*3/uL (0.00-0.03); Imm Gran Pct Auto 0.7 % (0.0-0.4); Lymphocytes Absolute Auto 3.0 X10*3/uL (1.2-4.9); Mean Corpuscular HGB Conc 32.1 g/dl (31.0-36.0); Mean Corpuscular Hemoglobin 26.6 pg (27.0-33.0); Mean Corpuscular Volume 83.0 fL (80.0-98.0); NRBC Abs Auto 0.000 X10*3/uL (0.0-0.012); NRBC Pct Auto 0.0 /100WBC (0.0-0.2); Platelet Count 614 X10*3/uL (160-400); Red Blood Count 4.81 X10*6/uL (4.60-5.80); White Blood Count 11.3 X10*3/uL (4.8-10.8)
[2025-02-13 07:29] LABS: Anion Gap 13 (12-20); Blood Urea Nitrogen 18 mg/dL (9-16); Calcium 9.1 mg/dL (8.4-10.2); Carbon Dioxide 26 mmol/L (22-29); Chloride 104 mmol/L (96-108); Creatinine Clr Calc Pharmacy 174.7; Estimated Glomerular Filt Rate > 60; Potassium 3.1 mmol/L (3.3-5.1); Sodium 140 mmol/L (135-145)
[2025-02-13 08:18] LABS: HIV Num 1 0.07 S/CO (0.00-0.99); ~HepC Num1 2.67 S/CO (0.00-0.79); ~Hepatitis C Antibody Reactive (Nonreactive)
[2025-02-13] MEDS: methADONE HCl 20 MG/2 ML ORAL.CONC 98 MG PO (09:19)
[2025-02-13] MEDS: 0.9 % Sodium Chloride Flush 3 ML SYRINGE IVFLUSH ×3 (09:20→20:47)
--- NOTE | 2025-02-13 11:44 | MHC.RECOVRN ---
Tw met with pt in 485 to discuss discharge planning Pt reports reluctance to go to detox for benzodiazepine tapr due to missing his children spoke at length about importance of medical management for benzo taper pt verbalized his understanding Pt agrees to attend detox however states I don't want to go far ATS bed search in progress and paperwork being [facility] at this time for review ACS team to continue to follow
--- NOTE | 2025-02-13 12:17 | HO.PM.IMPN ---
Subjective Subjective Date of Service: 02/13/25 Interval History: Pt feeling well today without any acute medical complaints No acute events overnight No auditory or visual hallucinations He has had no seizure activity since Sunday Benzo taper transitioned to p.o. this morning Seen and evaluated by PT who did not recommend any services Considering being discharged to detox facility Pt appears medically cleared discharge Review of Systems Review of Systems: Yes all other systems are reviewed and are negative Physical Exam Exam: Exam: General: AOx3, no acute distress Resp: CTA bilaterally CVS: S1, S2, regular rate, tachycardic GI: +BS, NT, no distention Skin: Warm, dry Neuro: Cranial nerves II-XII grossly intact bilaterally. Motor grossly intact bilaterally. No focal deficits noted Extremities: No edema Psych: Calm, cooperative Vital Signs: Vital Signs: Last Vital Signs Temp 98.0 F 02/13/25 12:00 Pulse 97 02/13/25 12:00 Resp 18 02/13/25 12:00 BP 116/73 02/13/25 12:00 Pulse Ox 92 02/13/25 12:00 O2 Del Method Room Air 02/13/25 12:00 O2 Flow Rate 3 02/12/25 08:00 FiO2 60 02/07/25 12:00 Oxygen Flow Rate 4 02/08/25 21:55 BMI result Body Mass Index 34.9 Objective Data Active Medications Albuterol Sulfate (Albuterol Sulfate 90 Mcg 8 Gm Inhaler) 2 puff INHALE QID PRN PRN Reason: shortness of breath or wheezing Aripiprazole (Aripiprazole 20 Mg Tablet) 20 mg PO BEDTIME [facility] Last Admin: 02/12/25 21:06 Dose: 20 mg Documented By: ISABEL Clonazepam (Clonazepam 0.5 Mg Tablet) 0.5 mg PO BID [facility] Last Admin: 02/13/25 10:58 Dose: 0.5 mg Documented By: SHAUN Clonidine HCl (Clonidine Hcl 0.2 Mg Tablet) 0.2 mg PO BEDTIME PRN; Protocol PRN Reason: Anxiety Diazepam (Diazepam 10 Mg/2 Ml Cartridge) 10 mg IVPUSH Q4H PRN PRN Reason: WITHDRAWAL Last Admin: 02/10/25 12:17 Dose: 10 mg Documented By: SUDHA Diazepam (Diazepam 5 Mg Tablet) 10 mg PO Q8H [facility] Last Admin: 02/13/25 09:19 Dose: 10 mg Documented By: SHAUN Enoxaparin Sodium (Enoxaparin Sodium 40 Mg/0.4 Ml Syringe) 40 mg SUBCUT Q24H [facility] Last Admin: 02/12/25 19:21 Dose: 40 mg Documented By: SHAUN Gabapentin (Gabapentin 400 Mg Capsule) 800 mg PO TID [facility] Last Admin: 02/13/25 09:19 Dose: 800 mg Documented By: SHAUN Levetiracetam (Levetiracetam 500 Mg Tablet) 500 mg PO BID [facility] Last Admin: 02/13/25 09:19 Dose: 500 mg Documented By: SHAUN Methadone HCl (Methadone Hcl 20 Mg/2 Ml Oral.Conc) 98 mg PO DAILY@0800 [facility] Last Admin: 02/13/25 09:19 Dose: 98 mg Documented By: SHAUN Co-signed By: JUHI Metoprolol Tartrate (Metoprolol Tartrate 25 Mg Tablet) 25 mg PO BID [facility]; Protocol Last Admin: 02/13/25 09:19 Dose: 25 mg Documented By: SHAUN Ondansetron HCl (Ondansetron Hcl 4 Mg/2 Ml Vial) 4 mg IVPUSH Q6H PRN PRN Reason: Nausea and Vomiting Last Admin: 02/08/25 05:10 Dose: 4 mg Documented By: BETY Sertraline HCl (Sertraline Hcl 100 Mg Tablet) 200 mg PO DAILY [facility] Last Admin: 02/13/25 09:19 Dose: 200 mg Documented By: SHAUN Sodium Chloride (0.9 % Sodium Chloride Flush 3 Ml Syringe) 3 ml IVFLUSH QSHIFT [facility] Last Admin: 02/13/25 09:20 Dose: 3 ml Documented By: SHAUN Labs 02/13/25 06:57 02/13/25 06:57 Labs: Laboratory Results - last 24 hr 02/12/25 02/13/25 11:44 06:57 MCV 83.0 MCH 26.6 L MCHC 32.1 RDW 13.6 Plt Count 614 H MPV 8.9 L Immature Gran % (Auto) 0.7 H Neut % (Auto) 62.1 Lymph % (Auto) 26.2 Snyder % (Auto) 7.1 Eos % (Auto) 3.0 Baso % (Auto) 0.9 Lymph # (Auto) 3.0 Snyder # (Auto) 0.8 Eos # (Auto) 0.3 Baso # (Auto) 0.1 Abs Immat Gran (auto) 0.08 H Absolute Neuts (auto) 7.0 Absolute Nucleated RBC 0.000 Nucleated RBC % (auto) 0.0 Anion Gap 14 13 Estim Creat Clear Calc 178.9 174.7 Estimated GFR > 60 > 60 Random Glucose 125 H 140 H Calcium 9.6 9.1 Random Vancomycin 2.4 L Hepatitis C Ab (EIA) Reactive H HIV 1&2 Ab/P24 Ag 4thGn Nonreactive Assessment and Plan (1) Benzodiazepine withdrawal with complication: Status: Acute Plan Plan 40-year-old male, with a background history of tobacco use, polysubstance abuse on methadone, presents to the hospital with shortness of breath, admitted with acute hypoxic respiratory failure 2/2 left lower lobe pneumonia (MRSA+ve), c/b sepsis and septic shock and intubation (02/02-02/07) in medical ICU developing moderate ARDS with superimposed polysubstance withdrawal off cocaine/heroin/benzos, transferred to medical floor 02/08/2025 and shortly thereafter had benzo withdrawal seizures X2 on 02/09 requiring IV Valium and prolonged taper BENZO WITHDRAWAL SEIZURES U tox +ve for cocaine, opioids, methadone, benzodiazepines in the emergency room While in MICU, required high doses of propofol, fentanyl, midazolam, dexmedetomidine - without achieving complete sedation. Patient had benzo withdrawal seizures after being transferred from ICU and was initiated on Valium slow prolonged taper with good effect. Intracranial imaging and EEG unremarkable, Neurology, addiction Medicine consulted. Initiated on Keppra 500mg b.i.d., maintain seizure aspiration and fall precautions. Will continue slow benzo taper: pt transitioned to PO Diazepam 10mg q8H today. Paroxysmal A flutter - Likely reactive post ictal phase, with good response to IV Lopressor. For now continue rate control medication New onset hallucinations on 02/09-02/10, none since -likely withdrawal from heroin vs etoh vs underlying psych undiagnosis - Psych consult placed, recommend restarting Abilify 20mg PO bedtime and Sertraline 200mg PO daily. AHRF requiring pressors and intubation from 02/02/2025 to 02/07/2025, Course complicated by moderate ARDS 2/2 LLL MRSA pneumonia--not hypoxic on room air currently Patient likely developed acute hypoxic respiratory failure in the setting of aspiration pneumonia and MRSA in the setting of IVDU-history is mainly from his mother and brother, patient does not recall the exact events of ingestion however the tox screen was positive for cocaine, opiates, methadone, benzos during this admission. Patient was intubated and extubated, requiring pressor support and was transitioned to the floors on 02/08/2025. 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 Given IVDU and high benzo tolerance, patient likely developed benzo withdrawal seizures. His venous lactate and witnessed seizures and likely etiology suggest it is likely benzo withdrawal. Plan Patient completed course of vancomycin and levofloxacin Venous lactate was likely in the setting of seizures-normalized on the 2nd lab draw Polysubstance abuse - Opiate withdrawal ,Cocaine withdrawal , Benzodiazepine withdrawal U tox +ve for cocaine, opioids, methadone, benzodiazepines in the emergency room While in MICU, required high doses of propofol, fentanyl, midazolam, dexmedetomidine - without achieving complete sedation. PLAN - addiction medicine consultation placed - methadone 98 mg p.o. daily - COWS monitoring - clonazepam 0.5mg p.o. b.i.d. - on slow p.o. Valium taper Tobacco use Nicotine replacement therapy can be offered to patient Urinary retention Retention of 500 cc of urine identified on bladder scan. Patient was encouraged to urinate, with good result. Monitor closely, straight cath only if necessary. GERD Pantoprazole DVT prophylaxis with Lovenox Disposition: Pt is now clinically stable and has had neither hallucinations seizures for over 48 hours. Pt is unsafe to go home on benzo taper given his past recent hx of polysubstance use disorder and benzo abuse; currently awaiting safe disposition to detox facility. Quality Stroke Does the patient have a stroke diagnosis?: No VTE Prior VTE?: No VTE Risk Level:: Medical - moderate - high VTE Device Contraindication: N/A - Device Ordered VTE Drug Contraindication: N/A - Med Ordered
--- NOTE | 2025-02-13 14:26 | MHC.CM.PN ---
Addendum entered by Kinsey Jefferson 02/13/25 16:10: [facility] HAS ACCEPTED PATIENT FOR A START OF CARE FOR EARLY NEXT WEEK, THEY CAN SUPPORT A MEDICATION LOCK BOX FOR PATIENTS BENZO TAPER, HOSPITALIST UPDATED. Addendum entered by Kinsey Jefferson 02/13/25 15:58: PER SPORTS NUTRITIONIST, SHE HAS BEEN UNABLE TO FIND AN ACCEPTING DETOX CENTER AT THIS TIME, SHE SUGGESTED A [facility] WHO CAN HELP SUPPORT A MEDICATION LOCK BOX FOR PATIENTS BENZO TAPER. [facility] AWAITING AN ACCEPTING [facility] AGENCY. Original Note: EMR REVIEWED AND PER MD ROUNDS, PATIENT IS NOT MEDICALLY CLEARED FOR DISCHARGE DUE TO MANAGEMENT OF BENZO TAPER/MONITORING FOR SEIZURES. RECOVERY NURSE IS WORKING ON PLACING PATIENT IN A DETOX CENTER.
--- NOTE | 2025-02-13 15:09 | MHC.RECOVRN ---
Todd called to report pt does not meet LOC for detox placement. ATS bed search to continue
--- NOTE | 2025-02-13 15:18 | MHC.RECOVRN ---
Spoke to Liliane Davalos, and Jadon to inquire about detox placement for benzo taper. All facilites state they do not admit for benzo taper. [facility] reports benzo taper should be conducted by the pt's PCP despite explanation for placement need. Information relayed to WINTER and JACKIE
[2025-02-13] MEDS: Potassium Chloride Packet 20 MEQ PACKET PO (20:47)
[2025-02-14] VITALS (8 sets, daily range): BP systolic 101–131; BP diastolic 58–78; PULSE 93–104; RESP 12–20; TEMP 36.2–37; O2SAT 92–95; BMI 35.5
[2025-02-14 07:23] LABS: MANUAL DIFF FLAG NO
[2025-02-14 07:33] LABS: Hematocrit 39.6 % (42.0-52.0); Hemoglobin 12.5 g/dl (14.0-18.0); Imm Gran Abs Auto 0.07 X10*3/uL (0.00-0.03); Imm Gran Pct Auto 0.7 % (0.0-0.4); Lymphocytes Absolute Auto 3.1 X10*3/uL (1.2-4.9); Mean Corpuscular HGB Conc 31.6 g/dl (31.0-36.0); Mean Corpuscular Hemoglobin 26.2 pg (27.0-33.0); Mean Corpuscular Volume 82.8 fL (80.0-98.0); NRBC Abs Auto 0.000 X10*3/uL (0.0-0.012); NRBC Pct Auto 0.0 /100WBC (0.0-0.2); Platelet Count 491 X10*3/uL (160-400); Red Blood Count 4.78 X10*6/uL (4.60-5.80); White Blood Count 10.4 X10*3/uL (4.8-10.8)
[2025-02-14 08:10] LABS: Anion Gap 18 (12-20); Blood Urea Nitrogen 14 mg/dL (9-16); Calcium 9.2 mg/dL (8.4-10.2); Carbon Dioxide 23 mmol/L (22-29); Chloride 105 mmol/L (96-108); Creatinine Clr Calc Pharmacy 167.5; Estimated Glomerular Filt Rate > 60; Potassium 3.8 mmol/L (3.3-5.1); Sodium 142 mmol/L (135-145)
[2025-02-14] MEDS: methADONE HCl 20 MG/2 ML ORAL.CONC 98 MG PO (09:06)
--- NOTE | 2025-02-14 13:30 | HO.PM.IMPN ---
Subjective Subjective Date of Service: 02/14/25 Interval History: Resting comfortably in bed No acute complaints Denies hallucinations No seizures Continues to be tachycardic Unable to get a detox bed; will instead go home with VNA services and lockbox Review of Systems Review of Systems: Yes all other systems are reviewed and are negative Physical Exam Exam: Exam: General: AOx3, no acute distress Resp: CTA bilaterally CVS: S1, S2, RRR GI: +BS, NT, no distention Skin: Warm, dry Neuro: Cranial nerves II-XII grossly intact bilaterally. Motor grossly intact bilaterally Extremities: No edema Psych: Appropriate affect. Calm and cooperative Vital Signs: Vital Signs: Last Vital Signs Temp 98.2 F 02/14/25 11:40 Pulse 93 02/14/25 11:40 Resp 12 02/14/25 11:40 BP 114/67 02/14/25 11:40 Pulse Ox 92 02/14/25 11:40 O2 Del Method Room Air 02/14/25 11:40 O2 Flow Rate 3 02/12/25 08:00 FiO2 60 02/07/25 12:00 Oxygen Flow Rate 4 02/08/25 21:55 BMI result Body Mass Index 35.5 Objective Data Active Medications Albuterol Sulfate (Albuterol Sulfate 90 Mcg 8 Gm Inhaler) 2 puff INHALE QID PRN PRN Reason: shortness of breath or wheezing Aripiprazole (Aripiprazole 20 Mg Tablet) 20 mg PO BEDTIME [facility] Last Admin: 02/13/25 20:47 Dose: 20 mg Documented By: TRAVIS Clonazepam (Clonazepam 0.5 Mg Tablet) 0.5 mg PO BID [facility] Last Admin: 02/14/25 09:04 Dose: 0.5 mg Documented By: AWILDA Clonidine HCl (Clonidine Hcl 0.2 Mg Tablet) 0.2 mg PO BEDTIME PRN; Protocol PRN Reason: Anxiety Diazepam (Diazepam 10 Mg/2 Ml Cartridge) 10 mg IVPUSH Q4H PRN PRN Reason: WITHDRAWAL Last Admin: 02/10/25 12:17 Dose: 10 mg Documented By: SUDHA Diazepam (Diazepam 5 Mg Tablet) 10 mg PO Q8H [facility] Last Admin: 02/14/25 09:05 Dose: 10 mg Documented By: AWILDA Enoxaparin Sodium (Enoxaparin Sodium 40 Mg/0.4 Ml Syringe) 40 mg SUBCUT Q24H [facility] Last Admin: 02/13/25 17:47 Dose: 40 mg Documented By: SHAUN Gabapentin (Gabapentin 400 Mg Capsule) 800 mg PO TID [facility] Last Admin: 02/14/25 09:03 Dose: 800 mg Documented By: AWILDA Levetiracetam (Levetiracetam 500 Mg Tablet) 500 mg PO BID [facility] Last Admin: 02/14/25 09:02 Dose: 500 mg Documented By: AWILDA Methadone HCl (Methadone Hcl 20 Mg/2 Ml Oral.Conc) 98 mg PO DAILY@0800 [facility] Last Admin: 02/14/25 09:06 Dose: 98 mg Documented By: AWILDA Co-signed By: SUDHA Metoprolol Tartrate (Metoprolol Tartrate 50 Mg Tablet) 50 mg PO BID [facility]; Protocol Last Admin: 02/14/25 09:09 Dose: 50 mg Documented By: AWILDA Ondansetron HCl (Ondansetron Hcl 4 Mg/2 Ml Vial) 4 mg IVPUSH Q6H PRN PRN Reason: Nausea and Vomiting Last Admin: 02/08/25 05:10 Dose: 4 mg Documented By: BETY Sertraline HCl (Sertraline Hcl 100 Mg Tablet) 200 mg PO DAILY [facility] Last Admin: 02/14/25 09:03 Dose: 200 mg Documented By: AWILDA Sodium Chloride (0.9 % Sodium Chloride Flush 3 Ml Syringe) 3 ml IVFLUSH QSHIFT [facility] Last Admin: 02/14/25 09:10 Dose: Not Given Documented By: AWILDA Non-Admin Reason: Previously Administered Labs 02/14/25 07:03 02/14/25 07:03 Labs: Laboratory Results - last 24 hr 02/14/25 07:03 MCV 82.8 MCH 26.2 L MCHC 31.6 RDW 13.8 Plt Count 491 H MPV 10.4 Immature Gran % (Auto) 0.7 H Neut % (Auto) 56.0 Lymph % (Auto) 30.1 [place] % (Auto) 8.9 Eos % (Auto) 2.8 Baso % (Auto) 1.5 Lymph # (Auto) 3.1 [place] # (Auto) 0.9 Eos # (Auto) 0.3 Baso # (Auto) 0.2 Abs Immat Gran (auto) 0.07 H Absolute Neuts (auto) 5.8 Absolute Nucleated RBC 0.000 Nucleated RBC % (auto) 0.0 Anion Gap 18 Estim Creat Clear Calc 167.5 Estimated GFR > 60 Random Glucose 91 Calcium 9.2 Assessment and Plan (1) Benzodiazepine withdrawal with complication: Status: Acute Plan 40-year-old male, with a background history of tobacco use, polysubstance abuse on methadone, presents to the hospital with shortness of breath, admitted with acute hypoxic respiratory failure 2/2 left lower lobe pneumonia (MRSA+ve), c/b sepsis and septic shock and intubation (02/02-02/07) in medical ICU developing moderate ARDS with superimposed polysubstance withdrawal off cocaine/heroin/benzos, transferred to medical floor 02/08/2025 and shortly thereafter had benzo withdrawal seizures X2 on 02/09 requiring IV Valium and prolonged taper BENZO WITHDRAWAL SEIZURES U tox +ve for cocaine, opioids, methadone, benzodiazepines in ED While in MICU, required high doses of propofol, fentanyl, midazolam, dexmedetomidine - without achieving complete sedation Had benzo withdrawal seizures on 02/09 after transferred to med floor Initiated on Valium and slow prolonged taper with good effect; currently on there has been [address] Q [address] of head, EEG unremarkable Neurology consulted and addiction medicine consulted Continue Keppra 500mg bid; pt will need PCP/neurology follow up to consider long-term continuation Paroxysmal A flutter/persistent tachycardia Atrial flutter noted on EKG on 02/09 Likely reactive post ictal phase Given IV Lopressor to good effect Has been in sinus tach since Metoprolol increased to 50mg bid New onset hallucinations on 02/09-02/10, none since Likely withdrawal from heroin vs etoh vs underlying psych undiagnosis Psych consult placed, recommend restarting Abilify 20mg PO bedtime and Sertraline 200mg PO daily. AHRF requiring pressors and intubation from 02/02/2025 to 02/07/2025 Course complicated by moderate ARDS 2/2 LLL MRSA pneumonia Secondary to aspiration pneumonia and MRSA in the setting IVDU Resolved, currently on room air; abx course of vancomycin and levofloxacin completed Polysubstance abuse - Opiate withdrawal ,Cocaine withdrawal , Benzodiazepine withdrawal U tox +ve for cocaine, opioids, methadone, benzodiazepines in the emergency room While in MICU, required high doses of propofol, fentanyl, midazolam, dexmedetomidine - without achieving complete sedation. PLAN - addiction medicine consultation placed - methadone 98 mg p.o. daily - COWS monitoring - clonazepam 0.5mg p.o. b.i.d. - on slow p.o. Valium taper Tobacco use Nicotine replacement therapy can be offered to patient Urinary retention Retention of 500 cc of urine identified on bladder scan. Patient was encouraged to urinate, with good result. Monitor closely, straight cath only if necessary. GERD Pantoprazole DVT prophylaxis with Lovenox Disposition: Pt is now clinically stable and has had neither hallucinations seizures for over 48 hours. Pt is unsafe to go home on benzo taper given his past recent hx of polysubstance use disorder and benzo abuse; currently awaiting safe disposition to detox facility. Quality Stroke Does the patient have a stroke diagnosis?: No VTE Prior VTE?: No VTE Risk Level:: Medical - moderate - high VTE Device Contraindication: N/A - Device Ordered VTE Drug Contraindication: N/A - Med Ordered
[2025-02-15] VITALS (8 sets, daily range): BP systolic 102–110; BP diastolic 54–72; PULSE 87–103; RESP 16–20; TEMP 36.4–37.1; O2SAT 86–98; BMI 35.5
[2025-02-15] MEDS: methADONE HCl 20 MG/2 ML ORAL.CONC 98 MG PO (07:54)
--- NOTE | 2025-02-15 22:17 | P.PNIM_ITS ---
Subjective Subjective Date of Service: 02/15/25 Interval History: Noted to be desatting to upper 80s while sleeping Pt himself without any acute complaints Feeling well, ready to go home Plan to discharge home with VNA tomorrow or Sunday Review of Systems Review of Systems: Yes all other systems are reviewed and are negative Physical Exam 2 Exam: Exam: General: AOx3, no acute distress Resp: CTA bilaterally though diminished throughout CVS: S1, S2, regular rate, tachy GI: +BS, NT, no distention Skin: Warm, dry Neuro: Cranial nerves II-XII grossly intact bilaterally. Motor grossly intact bilaterally Extremities: No edema Psych: Appropriate affect. Calm and cooperative Vital Signs: Vital Signs: Last Vital Signs Temp 97.8 F 02/15/25 20:00 Pulse 100 02/15/25 20:00 Resp 20 02/15/25 20:00 BP 102/61 02/15/25 20:00 Pulse Ox 94 02/15/25 20:00 O2 Del Method Nasal Cannula 02/15/25 20:00 O2 Flow Rate 2 02/15/25 20:00 FiO2 60 02/07/25 12:00 Oxygen Flow Rate 4 02/08/25 21:55 BMI result Body Mass Index 35.5 Objective Data Active Medications Albuterol Sulfate (Albuterol Sulfate 90 Mcg 8 Gm Inhaler) 2 puff INHALE QID PRN PRN Reason: shortness of breath or wheezing Aripiprazole (Aripiprazole 20 Mg Tablet) 20 mg PO BEDTIME [facility] Last Admin: 02/15/25 21:34 Dose: 20 mg Documented By: ISABEL Clonazepam (Clonazepam 0.5 Mg Tablet) 0.5 mg PO BID [facility] Last Admin: 02/15/25 21:33 Dose: 0.5 mg Documented By: ISABEL Clonidine HCl (Clonidine Hcl 0.2 Mg Tablet) 0.2 mg PO BEDTIME PRN; Protocol PRN Reason: Anxiety Diazepam (Diazepam 10 Mg/2 Ml Cartridge) 10 mg IVPUSH Q4H PRN PRN Reason: WITHDRAWAL Last Admin: 02/10/25 12:17 Dose: 10 mg Documented By: SUDHA Diazepam (Diazepam 5 Mg Tablet) 10 mg PO Q8H [facility] Last Admin: 02/15/25 15:04 Dose: 10 mg Documented By: AWILDA Docusate Sodium (Docusate Sodium 100 Mg Capsule) 100 mg PO BID PRN PRN Reason: Constipation Last Admin: 02/15/25 07:55 Dose: 100 mg Documented By: AWILDA Enoxaparin Sodium (Enoxaparin Sodium 40 Mg/0.4 Ml Syringe) 40 mg SUBCUT Q24H [facility] Last Admin: 02/15/25 18:03 Dose: 40 mg Documented By: AWILDA Gabapentin (Gabapentin 400 Mg Capsule) 800 mg PO TID [facility] Last Admin: 02/15/25 21:33 Dose: 800 mg Documented By: ISABEL Levetiracetam (Levetiracetam 500 Mg Tablet) 500 mg PO BID [facility] Last Admin: 02/15/25 21:34 Dose: 500 mg Documented By: ISABEL Methadone HCl (Methadone Hcl 20 Mg/2 Ml Oral.Conc) 98 mg PO DAILY@0800 [facility] Last Admin: 02/15/25 07:54 Dose: 98 mg Documented By: AWILDA Co-signed By: SUDHA Metoprolol Tartrate (Metoprolol Tartrate 50 Mg Tablet) 50 mg PO BID [facility]; Protocol Last Admin: 02/15/25 21:34 Dose: 50 mg Documented By: ISABEL Ondansetron HCl (Ondansetron Hcl 4 Mg/2 Ml Vial) 4 mg IVPUSH Q6H PRN PRN Reason: Nausea and Vomiting Last Admin: 02/08/25 05:10 Dose: 4 mg Documented By: BETY Polyethylene Glycol (Polyethylene Glycol 3350 17 Gm Powd.Pack) 17 gm PO DAILY PRN PRN Reason: Constipation Sertraline HCl (Sertraline Hcl 100 Mg Tablet) 200 mg PO DAILY [facility] Last Admin: 02/15/25 07:56 Dose: 200 mg Documented By: AWILDA Simethicone (Simethicone 80 Mg Tab.Chew) 80 mg PO QIDWMHS PRN PRN Reason: Gas Last Admin: 02/15/25 07:57 Dose: 80 mg Documented By: AWILDA Sodium Chloride (0.9 % Sodium Chloride Flush 3 Ml Syringe) 3 ml IVFLUSH QSHIFT [facility] Last Admin: 02/15/25 15:05 Dose: Not Given Documented By: AWILDA Non-Admin Reason: Previously Administered Labs 02/14/25 07:03 02/14/25 07:03 Assessment and Plan (1) Benzodiazepine withdrawal with complication: Status: Acute Plan 40-year-old male, with a background history of tobacco use, polysubstance abuse on methadone, presents to the hospital with shortness of breath, admitted with acute hypoxic respiratory failure 2/2 left lower lobe pneumonia (MRSA+ve), c/b sepsis and septic shock and intubation (02/02-02/07) in medical ICU developing moderate ARDS with superimposed polysubstance withdrawal off cocaine/heroin/benzos, transferred to medical floor 02/08/2025 and shortly thereafter had benzo withdrawal seizures X2 on 02/09 requiring IV Valium and prolonged taper BENZO WITHDRAWAL SEIZURES U tox +ve for cocaine, opioids, methadone, benzodiazepines in ED While in MICU, required high doses of propofol, fentanyl, midazolam, dexmedetomidine - without achieving complete sedation Had benzo withdrawal seizures on 02/09 after transferred to med floor Initiated on Valium and slow prolonged taper with good effect; currently on there has been 10 mg p[address]o. Q 8h CT of head, EEG unremarkable Neurology consulted and addiction medicine consulted Continue Keppra 500mg bid; pt will need PCP/neurology follow up to consider long-term continuation or discontinuation Paroxysmal A flutter/persistent tachycardia Atrial flutter noted on EKG on 02/09 Likely reactive during post-ictal state Given IV Lopressor to good effect Has been in sinus tach since Metoprolol increased to 50mg bid New onset hallucinations on 02/09-02/10, none since Likely withdrawal from heroin vs etoh vs underlying psych undiagnosis Psych consult placed, recommend restarting Abilify 20mg PO bedtime and Sertraline 200mg PO daily. AHRF requiring pressors and intubation from 02/02/2025 to 02/07/2025 Course complicated by moderate ARDS 2/2 LLL MRSA pneumonia Secondary to aspiration pneumonia and MRSA in the setting IVDU Resolved, currently on room air; abx course of vancomycin and levofloxacin completed Incentive spiromentry, encourage OOB Polysubstance abuse - Opiate withdrawal ,Cocaine withdrawal , Benzodiazepine withdrawal U tox +ve for cocaine, opioids, methadone, benzodiazepines in the emergency room While in MICU, required high doses of propofol, fentanyl, midazolam, dexmedetomidine - without achieving complete sedation. PLAN - addiction medicine consultation placed - methadone 98 mg p.o. daily - COWS monitoring - clonazepam 0.5mg p.o. b.i.d. - on slow p.o. Valium taper Tobacco use Nicotine replacement therapy can be offered to patient Urinary retention Retention of 500 cc of urine identified on bladder scan. Patient was encouraged to urinate, with good result. Monitor closely, straight cath only if necessary. GERD Pantoprazole DVT prophylaxis with Lovenox Disposition: Pt is now clinically stable and has had neither hallucinations seizures for over 48 hours. Pt is unsafe to go home on benzo taper given his past recent hx of polysubstance use disorder and benzo abuse; has been denied by detox facilities. Currently awaiting safe disposition home with VNA and safebox for benzo taper. Quality Stroke Does the patient have a stroke diagnosis?: No VTE Prior VTE?: No VTE Risk Level:: Medical - moderate - high VTE Device Contraindication: N/A - Device Ordered VTE Drug Contraindication: N/A - Med Ordered
[2025-02-16] VITALS (7 sets, daily range): BP systolic 104–117; BP diastolic 58–62; PULSE 89–117; RESP 16–18; TEMP 36.3–37.1; O2SAT 91–94; BMI 35.9
--- NOTE | 2025-02-16 07:33 | P.PNIM_ITS ---
Subjective Subjective Date of Service: 02/16/25 Interval History: Pt is now clinically stable and has had neither hallucinations seizures for over 48 hours. Pt is unsafe to go home on benzo taper given his past recent hx of polysubstance use disorder and benzo abuse; has been denied by detox facilities. Currently awaiting safe disposition home with VNA and safebox for benzo taper. Addiction Medicine cleared the patient Home O2 eval done-it does not need oxygen Patient can be downgraded to [facility] surge floor, tele discontinued Physical Exam 2 Exam: Exam: General: AOx3, no acute distress Resp: CTA bilaterally though diminished throughout CVS: S1, S2, regular rate, tachy GI: +BS, NT, no distention Skin: Warm, dry Psych: Appropriate affect. Calm and cooperative Vital Signs: Vital Signs: Last Vital Signs Temp 98.3 F 02/16/25 07:26 Pulse 93 02/16/25 07:26 Resp 16 02/16/25 07:26 BP 117/62 02/16/25 07:26 Pulse Ox 93 02/16/25 07:26 O2 Del Method Room Air 02/16/25 07:26 O2 Flow Rate 1 02/16/25 04:00 FiO2 60 02/07/25 12:00 Oxygen Flow Rate 4 02/08/25 21:55 BMI result Body Mass Index 35.9 Objective Data Active Medications Albuterol Sulfate (Albuterol Sulfate 90 Mcg 8 Gm Inhaler) 2 puff INHALE QID PRN PRN Reason: shortness of breath or wheezing Aripiprazole (Aripiprazole 20 Mg Tablet) 20 mg PO BEDTIME [facility] Last Admin: 02/15/25 21:34 Dose: 20 mg Documented By: ISABEL Clonazepam (Clonazepam 0.5 Mg Tablet) 0.5 mg PO BID [facility] Last Admin: 02/15/25 21:33 Dose: 0.5 mg Documented By: ISABEL Clonidine HCl (Clonidine Hcl 0.2 Mg Tablet) 0.2 mg PO BEDTIME PRN; Protocol PRN Reason: Anxiety Diazepam (Diazepam 10 Mg/2 Ml Cartridge) 10 mg IVPUSH Q4H PRN PRN Reason: WITHDRAWAL Last Admin: 02/10/25 12:17 Dose: 10 mg Documented By: SUDHA Diazepam (Diazepam 5 Mg Tablet) 10 mg PO Q8H [facility] Last Admin: 02/15/25 23:59 Dose: 10 mg Documented By: ISABEL Docusate Sodium (Docusate Sodium 100 Mg Capsule) 100 mg PO BID PRN PRN Reason: Constipation Last Admin: 02/15/25 07:55 Dose: 100 mg Documented By: AWILDA Enoxaparin Sodium (Enoxaparin Sodium 40 Mg/0.4 Ml Syringe) 40 mg SUBCUT Q24H [facility] Last Admin: 02/15/25 18:03 Dose: 40 mg Documented By: AWILDA Gabapentin (Gabapentin 400 Mg Capsule) 800 mg PO TID [facility] Last Admin: 02/15/25 21:33 Dose: 800 mg Documented By: ISABEL Levetiracetam (Levetiracetam 500 Mg Tablet) 500 mg PO BID [facility] Last Admin: 02/15/25 21:34 Dose: 500 mg Documented By: ISABEL Methadone HCl (Methadone Hcl 20 Mg/2 Ml Oral.Conc) 98 mg PO DAILY@0800 [facility] Last Admin: 02/15/25 07:54 Dose: 98 mg Documented By: AWILDA Co-signed By: SUDHA Metoprolol Tartrate (Metoprolol Tartrate 50 Mg Tablet) 50 mg PO BID [facility]; Protocol Last Admin: 02/15/25 21:34 Dose: 50 mg Documented By: ISABEL Ondansetron HCl (Ondansetron Hcl 4 Mg/2 Ml Vial) 4 mg IVPUSH Q6H PRN PRN Reason: Nausea and Vomiting Last Admin: 02/08/25 05:10 Dose: 4 mg Documented By: BETY Polyethylene Glycol (Polyethylene Glycol 3350 17 Gm Powd.Pack) 17 gm PO DAILY PRN PRN Reason: Constipation Sertraline HCl (Sertraline Hcl 100 Mg Tablet) 200 mg PO DAILY [facility] Last Admin: 02/15/25 07:56 Dose: 200 mg Documented By: AWILDA Simethicone (Simethicone 80 Mg Tab.Chew) 80 mg PO QIDWMHS PRN PRN Reason: Gas Last Admin: 02/15/25 07:57 Dose: 80 mg Documented By: AWILDA Sodium Chloride (0.9 % Sodium Chloride Flush 3 Ml Syringe) 3 ml IVFLUSH QSHIFT [facility] Last Admin: 02/16/25 02:33 Dose: Not Given Documented By: ISABEL Non-Admin Reason: Unable to Scan Barcode Labs 02/14/25 07:03 02/14/25 07:03 Assessment and Plan (1) Benzodiazepine withdrawal with complication: Status: Acute Plan 40-year-old male, with a background history of tobacco use, polysubstance abuse on methadone, presents to the hospital with shortness of breath, admitted with acute hypoxic respiratory failure 2/2 left lower lobe pneumonia (MRSA+ve), c/b sepsis and septic shock and intubation (02/02-02/07) in medical ICU developing moderate ARDS with superimposed polysubstance withdrawal off cocaine/heroin/benzos, transferred to medical floor 02/08/2025 and shortly thereafter had benzo withdrawal seizures X2 on 02/09 requiring IV Valium and prolonged taper BENZO WITHDRAWAL SEIZURES Polysubstance abuse - Opiate withdrawal ,Cocaine withdrawal , Benzodiazepine withdrawal U tox +ve for cocaine, opioids, methadone, benzodiazepines in the emergency room While in MICU, required high doses of propofol, fentanyl, midazolam, dexmedetomidine - without achieving complete sedation. U tox +ve for cocaine, opioids, methadone, benzodiazepines in ED While in MICU, required high doses of propofol, fentanyl, midazolam, dexmedetomidine - without achieving complete sedation Had benzo withdrawal seizures on 02/09 after transferred to med floor, CT of head, EEG unremarkable, Neurology consulted and addiction medicine consulted Initiated on Valium and slow prolonged taper with good effect; currently on there has been 10 mg p.o. Q 8h PLAN - addiction medicine consultation cleared the patient for discharge - * continue taper outpatient currently at 10mg TID day 4. --VNA to provider medication management * decrease diazepam doses by 5mg every 7-10 days until done * ensure follow up with provider to monitor for any potential withdrawal sx that may not present for several days following d/c due to long half life of diazepam * provide education to family regarding withdrawal sx - Cont methadone 98 mg p.o. daily - COWS monitoring - clonazepam 0.5mg p.o. b.i.d. - on slow p.o. Valium taper - Continue Keppra 500mg bid; pt will need PCP/neurology follow up to consider long-term continuation or discontinuation Paroxysmal A flutter/persistent tachycardia likely secondary to postictal state, seizures Atrial flutter noted on EKG on 02/09 Likely reactive during post-ictal state Given IV Lopressor to good effect Has been in sinus tach since Metoprolol increased to 50mg bid New onset hallucinations on 02/09-02/10, none since- Likely withdrawal from heroin vs etoh vs underlying psych undiagnosis Psych consult placed, recommend restarting Abilify 20mg PO bedtime and Sertraline 200mg PO daily. AHRF requiring pressors and intubation from 02/02/2025 to 02/07/2025 Course complicated by moderate ARDS 2/2 LLL MRSA pneumonia Likely Secondary to aspiration pneumonia and MRSA in the setting IVDU Resolved, currently on room air; abx course of vancomycin and levofloxacin completed Incentive spiromentry, encourage OOB Tobacco use- Nicotine replacement therapy Urinary retention - resolved, likely secondary to deconditioning Retention of 500 cc of urine identified on bladder scan. Patient was encouraged to urinate, with good result. Monitor closely, straight cath only if necessary. GERD- Pantoprazole DVT prophylaxis with Lovenox Disposition: Pt is now clinically stable and has had neither hallucinations seizures for over 48 hours. Pt is unsafe to go home on benzo taper given his past recent hx of polysubstance use disorder and benzo abuse; has been denied by detox facilities. Currently awaiting safe disposition home with VNA and safebox for benzo taper- likely to go home tomorrow pending authorization. Total time managing care of this patient today: 45 minutes. Quality Stroke Does the patient have a stroke diagnosis?: No VTE Prior VTE?: No VTE Risk Level:: Medical - moderate - high VTE Device Contraindication: N/A - Device Ordered VTE Drug Contraindication: N/A - Med Ordered
[2025-02-16] MEDS: methADONE HCl 20 MG/2 ML ORAL.CONC 98 MG PO (08:51)
[2025-02-16] MEDS: 0.9 % Sodium Chloride Flush 3 ML SYRINGE IVFLUSH ×3 (08:51→21:23)
--- NOTE | 2025-02-16 13:49 | HO.ADDICTPRO ---
Subjective Subjective Date of Service: 02/16/25 Reason For Visit: Atrial flutter Interim History: Patient seen in follow up for benzodiazepine dependence/withdrawal Patient now medically cleared and ready for discharge pending outpatient care coordination Current diazepam dose 10mg q8H since 01/13. Tolerating this dose without issue Today he is awake, alert, engaged in interview. Speech somewhat slowed, but appropriate Discussed taper plan and plan for VNA to assist with dosing--patient aware and agreeable Reinforced risk of taking medications that are not prescribed-patient verbalized understaning Review of Systems Constitutional: Reports as per HPI and Reports no additional constitutional complaints Mental Status Exam Mental Status Exam Level of Consciousness: Awake, Appropriate and Alert Patient Behavior: Appropriate and Talkative Affect Description: Blunted Speech Pattern: Clear Thought Process: Intact Thought Content: positive for Intact and positive for [place] Judgement: Fair Diagnostics Vital Signs (24Hr): Vital Signs - 24 hr 02/15/25 16:00 02/15/25 17:24 02/15/25 20:00 Temperature 98.4 F 97.8 F Pulse Rate 103 H 100 Respiratory Rate 20 20 Blood Pressure 109/72 102/61 Pulse Oximetry 93 90 L 94 Oxygen Delivery Method Room Air Nasal Cannula Oxygen Flow Rate 2 02/16/25 00:00 02/16/25 04:00 02/16/25 07:26 Temperature 98.0 F 97.3 F 98.3 F Pulse Rate 94 93 93 Respiratory Rate 16 18 16 Blood Pressure 104/62 114/62 117/62 Pulse Oximetry 92 94 93 Oxygen Delivery Method Nasal Cannula Nasal Cannula Room Air Oxygen Flow Rate 2 1 02/16/25 11:44 Temperature 97.8 F Pulse Rate 89 Respiratory Rate 18 Blood Pressure 117/59 L Pulse Oximetry 92 Oxygen Delivery Method Room Air Oxygen Flow Rate BMI result Body Mass Index 35.9 Labs 02/14/25 07:03 02/14/25 07:03 Imaging Radiology Impressions: ITS Impressions Chest X-Ray 02/09/25 08:10 IMPRESSION: Patchy opacities in both lungs without change. Electronically signed by: Rei Bello MD 02/09/2025 08:35 AM [facility] Brain MRI 02/09/25 14:03 IMPRESSION: 1. No evidence of intracranial hemorrhage, acute infarction, mass effect, or edema. 2. No evidence of hippocampal atrophy or signal abnormality. No heterotopic hernadez matter or cortical dysplasia identified. Electronically signed by: Roland Sampson MD 02/09/2025 03:10 PM [facility] Medications Medications Current Medications Albuterol Sulfate (Albuterol Sulfate 90 Mcg 8 Gm Inhaler) 2 puff INHALE QID PRN PRN Reason: shortness of breath or wheezing Aripiprazole (Aripiprazole 20 Mg Tablet) 20 mg PO BEDTIME [facility] Last Admin: 02/15/25 21:34 Dose: 20 mg Clonazepam (Clonazepam 0.5 Mg Tablet) 0.5 mg PO BID [facility] Last Admin: 02/16/25 08:50 Dose: 0.5 mg Clonidine HCl (Clonidine Hcl 0.2 Mg Tablet) 0.2 mg PO BEDTIME PRN; Protocol PRN Reason: Anxiety Diazepam (Diazepam 10 Mg/2 Ml Cartridge) 10 mg IVPUSH Q4H PRN PRN Reason: WITHDRAWAL Last Admin: 02/10/25 12:17 Dose: 10 mg Diazepam (Diazepam 5 Mg Tablet) 10 mg PO Q8H [facility] Last Admin: 02/16/25 08:50 Dose: 10 mg Docusate Sodium (Docusate Sodium 100 Mg Capsule) 100 mg PO BID PRN PRN Reason: Constipation Last Admin: 02/15/25 07:55 Dose: 100 mg Enoxaparin Sodium (Enoxaparin Sodium 40 Mg/0.4 Ml Syringe) 40 mg SUBCUT Q24H [facility] Last Admin: 02/15/25 18:03 Dose: 40 mg Gabapentin (Gabapentin 400 Mg Capsule) 800 mg PO TID [facility] Last Admin: 02/16/25 08:50 Dose: 800 mg Levetiracetam (Levetiracetam 500 Mg Tablet) 500 mg PO BID [facility] Last Admin: 02/16/25 08:51 Dose: 500 mg Methadone HCl (Methadone Hcl 20 Mg/2 Ml Oral.Conc) 98 mg PO DAILY@0800 [facility] Last Admin: 02/16/25 08:51 Dose: 98 mg Metoprolol Tartrate (Metoprolol Tartrate 50 Mg Tablet) 50 mg PO BID [facility]; Protocol Last Admin: 02/16/25 08:50 Dose: 50 mg Ondansetron HCl (Ondansetron Hcl 4 Mg/2 Ml Vial) 4 mg IVPUSH Q6H PRN PRN Reason: Nausea and Vomiting Last Admin: 02/08/25 05:10 Dose: 4 mg Polyethylene Glycol (Polyethylene Glycol 3350 17 Gm Powd.Pack) 17 gm PO DAILY PRN PRN Reason: Constipation Sertraline HCl (Sertraline Hcl 100 Mg Tablet) 200 mg PO DAILY [facility] Last Admin: 02/16/25 08:50 Dose: 200 mg Simethicone (Simethicone 80 Mg Tab.Chew) 80 mg PO QIDWMHS PRN PRN Reason: Gas Last Admin: 02/15/25 07:57 Dose: 80 mg Sodium Chloride (0.9 % Sodium Chloride Flush 3 Ml Syringe) 3 ml IVFLUSH QSHIFT [facility] Last Admin: 02/16/25 08:51 Dose: 3 ml Allergies Allergies Allergy/AdvReac Type Severity Reaction Status Date / Time No Known Allergies Allergy Verified 02/02/25 16:51 Assessment & Plan Assessment & Plan (1) Benzodiazepine dependence: Status: Acute Code(s): F13.20 - Sedative, hypnotic or anxiolytic dependence, uncomplicated Assessment and Plan: continue taper outpatient currently at 10mg TID day 4. --VNA to provider medication management decrease diazepam doses by 5mg every 7-10 days until done ensure follow up with provider to monitor for any potential withdrawal sx that may not present for several days following d/c due to long half life of diazepam provide education to family regarding withdrawal sx Total time managing care of this patient today _25___ minutes.
--- NOTE | 2025-02-16 16:34 | W.MHC.F2F ---
Service Date Service Date: 02/16/25 Encounter Date of encounter: 02/16/25 Reasons for Services Signs and symptoms assessed: as noted below Reason for long term: medication management and medication treatment Homebound: Leaving the home is medically contraindicated at this time without the asist of a device and/or another person due th the listed conditions above and below. Reason homebound: unsteady gait / fall risk Certification: Based on the above findings, I certify that this patient is confined to the home and needs intermittent long term care, physical therapy and/or speech therapy, or continues to need occupational therapy. The patient is under my care, and I have initiated the establishment of the plan of care. The patient will be followed by a physician who will periodically review the plan of care. Time Spent With Patient Time: Total time managing care of this patient today ____ minutes.
[2025-02-16 20:53] LABS: HCV Log PCR <1.18 NOT DETECTED Log IU/mL (NOT DETECTED); HepC Viral Load <15 NOT DETECTED IU/mL (NOT DETECTED)
[2025-02-17] VITALS: BP 105/60; PULSE 101; RESP 18; TEMP 37.6; O2SAT 90
[2025-02-17 03:36] VITALS: BP 102/60; PULSE 101; RESP 18; TEMP 37; O2SAT 90
[2025-02-17 06:00] VITALS: BMI 35.9
--- NOTE | 2025-02-17 07:16 | P.PNIM_ITS ---
Subjective Subjective Date of Service: 02/17/25 Physical Exam 2 Vital Signs: Vital Signs: Last Vital Signs Temp 98.6 F 02/17/25 03:36 Pulse 101 H 02/17/25 03:36 Resp 18 02/17/25 03:36 BP 102/60 02/17/25 03:36 Pulse Ox 90 L 02/17/25 03:36 O2 Del Method Nasal Cannula 02/17/25 03:36 O2 Flow Rate 1 02/17/25 03:36 FiO2 60 02/07/25 12:00 Oxygen Flow Rate 4 02/08/25 21:55 BMI result Body Mass Index 35.9 Objective Data Active Medications Albuterol Sulfate (Albuterol Sulfate 90 Mcg 8 Gm Inhaler) 2 puff INHALE QID PRN PRN Reason: shortness of breath or wheezing Aripiprazole (Aripiprazole 20 Mg Tablet) 20 mg PO BEDTIME [facility] Last Admin: 02/16/25 21:21 Dose: 20 mg Documented By: LOCO Clonidine HCl (Clonidine Hcl 0.2 Mg Tablet) 0.2 mg PO BEDTIME PRN; Protocol PRN Reason: Anxiety Diazepam (Diazepam 10 Mg/2 Ml Cartridge) 10 mg IVPUSH Q4H PRN PRN Reason: WITHDRAWAL Last Admin: 02/10/25 12:17 Dose: 10 mg Documented By: SUDHA Diazepam (Diazepam 5 Mg Tablet) 10 mg PO Q8H [facility] Last Admin: 02/16/25 23:49 Dose: 10 mg Documented By: LOCO Docusate Sodium (Docusate Sodium 100 Mg Capsule) 100 mg PO BID PRN PRN Reason: Constipation Last Admin: 02/15/25 07:55 Dose: 100 mg Documented By: AWILDA Enoxaparin Sodium (Enoxaparin Sodium 40 Mg/0.4 Ml Syringe) 40 mg SUBCUT Q24H [facility] Last Admin: 02/16/25 18:53 Dose: 40 mg Documented By: RAVIN Gabapentin (Gabapentin 400 Mg Capsule) 800 mg PO TID [facility] Last Admin: 02/16/25 21:21 Dose: 800 mg Documented By: LOCO Levetiracetam (Levetiracetam 500 Mg Tablet) 500 mg PO BID [facility] Last Admin: 02/16/25 21:21 Dose: 500 mg Documented By: LOCO Methadone HCl (Methadone Hcl 20 Mg/2 Ml Oral.Conc) 98 mg PO DAILY@0800 [facility] Last Admin: 02/16/25 08:51 Dose: 98 mg Documented By: RAVIN Co-signed By: SOTO Metoprolol Tartrate (Metoprolol Tartrate 50 Mg Tablet) 50 mg PO BID [facility]; Protocol Last Admin: 02/16/25 21:21 Dose: 50 mg Documented By: LOCO Ondansetron HCl (Ondansetron Hcl 4 Mg/2 Ml Vial) 4 mg IVPUSH Q6H PRN PRN Reason: Nausea and Vomiting Last Admin: 02/08/25 05:10 Dose: 4 mg Documented By: BETY Polyethylene Glycol (Polyethylene Glycol 3350 17 Gm Powd.Pack) 17 gm PO DAILY PRN PRN Reason: Constipation Sertraline HCl (Sertraline Hcl 100 Mg Tablet) 200 mg PO DAILY [facility] Last Admin: 02/16/25 08:50 Dose: 200 mg Documented By: RAVIN Simethicone (Simethicone 80 Mg Tab.Chew) 80 mg PO QIDWMHS PRN PRN Reason: Gas Last Admin: 02/15/25 07:57 Dose: 80 mg Documented By: AWILDA Sodium Chloride (0.9 % Sodium Chloride Flush 3 Ml Syringe) 3 ml IVFLUSH QSHIFT [facility] Last Admin: 02/16/25 21:23 Dose: 3 ml Documented By: LOCO Labs 02/14/25 07:03 02/14/25 07:03 Labs: Laboratory Results - last 24 hr 02/13/25 06:57 Hep C Viral Load <15 NOT DETECTED Hep C Viral Load Log <1.18 NOT DETECTED Quality Stroke Does the patient have a stroke diagnosis?: No VTE Prior VTE?: No VTE Risk Level:: Medical - moderate - high VTE Device Contraindication: N/A - Device Ordered VTE Drug Contraindication: N/A - Med Ordered
--- NOTE | 2025-02-17 07:24 | P.DS_ITS ---
DS: Providers Provider Date of Service: 02/17/25 Date of admission: 02/02/25 18:21 Date of discharge: 02/17/25 Primary care physician: Aiden Robins MD Consults: 02/03/25 11:37 Consult to Wound Care [place]ine [place] [facility] [place] [facility] Reason for consultation: Left for arm abrasion 02/08/25 07:38 Addiction Medicine Provider Routine Consulting Provider: [facility] Reason for consultation: PSU - severe - challenges sedation in MICU 02/09/25 07:58 Consult to Neurology Routine Consulting Provider: [facility] Reason for consultation: Witnessed seizures 02/09/25 08:14 Consult to Cardiology Routine Consulting [place] [facility] [place] [facility] Reason for consultation: A flutter 02/10/25 15:44 Consult to Psychiatry Routine Consulting Provider[place] [facility] [place] [facility] Reason for consultation: Active hallucinations DS: Diagnosis Discharge Diagnosis (1) Benzodiazepine withdrawal with complication: Status: Acute DS: Summary Hospital Course Hospital Course: #Benzodiazepine withdrawal seizure with complication: 40-year-old male, with a background history of tobacco use, polysubstance abuse on methadone, presents to the hospital with shortness of breath, admitted with acute hypoxic respiratory failure 2/2 left lower lobe pneumonia (MRSA+ve), c/b sepsis and septic shock and intubation (02/02-02/07) in medical ICU developing moderate ARDS with superimposed polysubstance withdrawal off cocaine/heroin/benzos, transferred to medical floor 02/08/2025 and shortly thereafter had benzo withdrawal seizures X2 on 02/09 requiring IV Valium and prolonged taper. Polysubstance abuse - Opiate withdrawal ,Cocaine withdrawal , Benzodiazepine withdrawal U tox +ve for cocaine, opioids, methadone, benzodiazepines in the emergency room While in MICU, required high doses of propofol, fentanyl, midazolam, dexmedetomidine - without achieving complete sedation. Had benzo withdrawal seizures on 02/09 after transferred to med floor, CT of head, EEG unremarkable, Neurology consulted and addiction medicine consulted Initiated on Valium and slow prolonged taper with good effect; currently on there has been 10 mg p.o. Q 8h - addiction medicine consultation cleared the patient for discharge - continue taper outpatient currently at 10mg TID day 5. --VNA to provider medication management decrease diazepam doses by 5mg every 7-10 days until done (VNA to coordinate) ensure follow up with provider to monitor for any potential withdrawal sx that may not present for several days following d/c due to long half life of diazepam provide education to family regarding withdrawal sx - Cont methadone 98 mg p.o. daily - Continue Keppra 500mg bid; pt will need PCP/neurology follow up to consider long-term continuation or discontinuation #Paroxysmal A flutter/persistent tachycardia likely secondary to postictal state, seizures Atrial flutter noted on EKG on 02/09 Likely reactive during post-ictal state Given IV Lopressor to good effect Has been in sinus tach since Metoprolol increased to 50mg bid #New onset hallucinations on 02/09-02/10, none since- Likely withdrawal from heroin vs etoh vs underlying psych undiagnosis Psych consulted, recommend restarting Abilify 20mg PO bedtime and Sertraline 200mg PO daily. #AHRF requiring pressors and intubation from 02/02/2025 to 02/07/2025 Course complicated by moderate ARDS 2/2 LLL MRSA pneumonia Likely Secondary to aspiration pneumonia and MRSA in the setting IVDU Resolved, currently on room air; abx course of vancomycin and levofloxacin completed Incentive spiromentry, encourage OOB #Tobacco use- Nicotine replacement therapy #Urinary retention - resolved, likely secondary to deconditioning #GERD- Pantoprazole #DVT prophylaxis with Lovenox Disposition: Pt is now clinically stable and has had neither hallucinations seizures for over 48 hours. Pt is unsafe to go home on benzo taper given his past recent hx of polysubstance use disorder and benzo abuse; has been denied by detox facilities. Currently awaiting safe disposition home with VNA and safebox for benzo tape Time spent discussing smoking cessation with patient: more than 10 minutes Status at Discharge Functional status at discharge: independent ambulation Overall status at discharge: patient is back to baseline Time Attestation Discharge Coordination Time (in mins): 45 Quality: Safe Use of Opioids Does Pt have an Active Cancer Diagnosis on the Problem List?: No Quality: Stroke Does the patient have a stroke diagnosis?: No Physical Exam Exam: Exam: General: AOx3, no acute distress Resp: CTA bilaterally though diminished throughout CVS: S1, S2, regular rate, tachy GI: +BS, NT, no distention Skin: Warm, dry Psych: Appropriate affect. Calm and cooperative Vital Signs: Vital Signs: Last Vital Signs Temp 98.6 F 02/17/25 03:36 Pulse 101 H 11/11/25 03:36 Resp 18 02/17/25 03:36 BP 102/60 02/17/25 03:36 Pulse Ox 90 L 02/17/25 03:36 O2 Del Method Nasal Cannula 02/17/25 03:36 O2 Flow Rate 1 02/17/25 03:36 FiO2 60 02/07/25 12:00 Oxygen Flow Rate 4 02/08/25 21:55 BMI result Body Mass Index 35.9 DS: Data Data Completed and Pending Labs on day of discharge: Laboratory Results - last 24 hr 02/13/25 06:57 Hep C Viral Load <15 NOT DETECTED Hep C Viral Load Log <1.18 NOT DETECTED Discharge Plan Discharge Anticipated Discharge Date/Time: 02/17/25 09:59 Patient Disposition: Home Health Service Discharge Diagnosis: AHRF 2 Referrals: [facility] [Outside] - 1 Week Aiden Robins MD [Primary Care Provider, Internal Medicine] - 1 Week Discharge Medications: New diazepam [Valium] 5 mg tablet 5 mg PO TID PRN (Reason: benzo withdrawal taper ) 39 Days Qty: 129 0RF levetiracetam 500 mg Tablet 500 mg PO BID 30 Days Qty: 60 3RF diazepam 2 mg Tablet 10 mg PO Q8H 5 Days Qty: 75 0RF metoprolol tartrate 50 mg Tablet 50 mg PO BID 30 Days Qty: 60 0RF Protocol: Hold for SBP/HR < HOLD for SBP < : 90 HOLD for HR < : 60 Continued clonazepam 0.5 mg tablet 0.5 mg PO BID gabapentin 800 mg tablet 800 mg PO TID aripiprazole 20 mg tablet 20 mg PO BEDTIME sertraline 100 mg tablet 200 mg PO DAILY clonidine HCl 0.2 mg tablet 0.2 mg PO BEDTIME PRN (Reason: Anxiety) methadone [Methadone Intensol] 10 mg/mL Concentrate 98 mg PO DAILY albuterol sulfate [Ventolin HFA] 90 mcg/actuation HFA aerosol inhaler 2 puff inhalation QID PRN (Reason: shortness of breath or wheezing) Qty: 6.7 1RF Discharge Orders: Discharge Order (Routine); Ordered 02/17/25 Ordered By: Anju Rao Diet: Low salt diet Activity on Discharge: As tolerated Stand Alone Forms: Patient Portal Discharge page Print Language: Spanish Care Plan Goals: Example Taper Schedule: Patient already completed 3 days of 10 mg t.i.d. day 4 of the prolonged Valium taper Days 4?7: 10 mg TID (30 mg/day) Days 8?14: 10 mg AM, 10 mg noon, 5 mg PM (25 mg/day) Days 15?21: 10 mg AM, 5 mg noon, 5 mg PM (20 mg/day) Days 22?28: 5 mg TID (15 mg/day) Days 29?35: 5 mg AM, 5 mg noon (10 mg/day) Days 36?42: 5 mg AM (5 mg/day) Then discontinue VNA to provide medication management Has instructions regarding withdrawal symptoms given long half-life of diazepam Patient is aware of how to use naloxone Health Concerns: See above Plan of Treatment: See above Assessment: See above Patient Instructions: Diazepam (By mouth)
[2025-02-17 07:39] VITALS: BP 120/63; PULSE 96; RESP 20; TEMP 36.8; O2SAT 94
[2025-02-17] MEDS: methADONE HCl 20 MG/2 ML ORAL.CONC 98 MG PO (07:57)
[2025-02-17] MEDS: 0.9 % Sodium Chloride Flush 3 ML SYRINGE IVFLUSH (07:57)
--- NOTE | 2025-02-17 11:16 | MHC.CM.PN ---
Pt. has been medically cleared to NH, he will go home via private transport [facility]
== END 2025-02-17 12:08 | disposition home health service (06) | DRG 720 ==
LOC: HO.ED 17:11 → HO.EDOVER 18:25 → HO.ICU 18:30 → HO.IMC 02-08 08:05
PROVIDERS: Hospitalist; Internal Medicine; Nurse Practitioner Family; Nurse Practitioner Psychiatric/Mental Health; Student in an Organized Health Care Education/Training Program; Admitting Provider Internal Medicine Critical Care Medicine; Emergency Provider Student in an Organized Health Care Education/Training Program; PCP Internal Medicine; Visit Provider Student in an Organized Health Care Education/Training Program
DX: A41.9 Sepsis, unspecified organism (principal); J80 Acute respiratory distress syndrome; R65.21 Severe sepsis with septic shock; J69.0 Pneumonitis due to inhalation of food and vomit; J15.212 Pneumonia due to Methicillin resistant Staphylococcus aureus; R56.9 Unspecified convulsions; E88.09 Other disorders of plasma-protein metabolism, not elsewhere classified; I48.92 Unspecified atrial flutter; R33.9 Retention of urine, unspecified; K21.9 Gastro-esophageal reflux disease without esophagitis; F17.210 Nicotine dependence, cigarettes, uncomplicated; E78.1 Pure hyperglyceridemia; F13.251 Sedative, hypnotic or anxiolytic dependence with sedative, hypnotic or anxiolytic-induced psychotic disorder with hallucinations; F11.23 Opioid dependence with withdrawal; F14.13 Cocaine abuse, unspecified with withdrawal; Z71.6 Tobacco abuse counseling; F19.10 Other psychoactive substance abuse, uncomplicated; Z87.01 Personal history of pneumonia (recurrent); Z71.51 Drug abuse counseling and surveillance of drug abuser; Z20.822 Contact with and (suspected) exposure to COVID-19; Z79.899 Other long term (current) drug therapy
CPT/HCPCS: 36415; 36600; 70450; 70551; 71045; 74018; 80048; 80053; 80202; 80307; 82040; 82803; 82947; 83605; 83735; 84100; 84146; 84478; 84484; 85007; 85025; 85027; 86803; 87040; 87070; 87077; 87147; 87186; 87205; 87389; 87502; 87522; 87633; 87635; 87640; 87641; 92526; 92610; 93005; 93306; 94002; 94003; 94640; 94799; 95816; 97162; 99285; J0131; J0613; J0616; J0696; J1450; J1650; J1938; J1953; J1956; J2250; J2251; J2405; J2470; J2543; J2704; J2919; J3010; J3360; J3373; J3374; J7120; P9047; Q9957; S9485

== ENCOUNTER → 2025-02-02 16:49 | Outpatient (BNV) | payer OTHER, SELFPAY | PROVIDERS: Admitting Provider Internal Medicine Critical Care Medicine; Emergency Provider Student in an Organized Health Care Education/Training Program; PCP Internal Medicine; Visit Provider Student in an Organized Health Care Education/Training Program | DX: J98.4 Other disorders of lung (principal) | CPT/HCPCS: 71045 ==

== ENCOUNTER → 2025-02-02 16:50 | Outpatient (BNV) | payer OTHER, SELFPAY | PROVIDERS: Admitting Provider Internal Medicine Critical Care Medicine; Emergency Provider Student in an Organized Health Care Education/Training Program; PCP Internal Medicine; Visit Provider Internal Medicine | DX: R00.0 Tachycardia, unspecified (principal) | CPT/HCPCS: 93010 ==

== ENCOUNTER 2025-02-02 18:21 | Outpatient (BNV) | payer OTHER, SELFPAY | END 2025-02-08 10:46 | PROVIDERS: Admitting Provider Internal Medicine Critical Care Medicine; Emergency Provider Student in an Organized Health Care Education/Training Program; PCP Internal Medicine; Visit Provider Radiology Vascular & Interventional Radiology | DX: R56.9 Unspecified convulsions (principal) | CPT/HCPCS: 70450 ==

== ENCOUNTER 2025-02-02 18:21 | Outpatient (BNV) | payer OTHER, SELFPAY | END 2025-02-10 07:00 | PROVIDERS: Admitting Provider Internal Medicine Critical Care Medicine; Emergency Provider Student in an Organized Health Care Education/Training Program; PCP Internal Medicine; Visit Provider Internal Medicine Cardiovascular Disease | DX: I48.92 Unspecified atrial flutter (principal); R94.31 Abnormal electrocardiogram [ECG] [EKG] | CPT/HCPCS: 93306 ==

== ENCOUNTER 2025-02-02 18:21 | Outpatient (BNV) | payer OTHER, SELFPAY | END 2025-02-09 15:00 | PROVIDERS: Admitting Provider Internal Medicine Critical Care Medicine; Emergency Provider Student in an Organized Health Care Education/Training Program; PCP Internal Medicine; Visit Provider Psychiatry & Neurology Neurology | DX: R56.9 Unspecified convulsions (principal) | CPT/HCPCS: 95816 ==

== ENCOUNTER 2025-02-02 18:21 | Outpatient (BNV) | payer OTHER, SELFPAY | END 2025-02-09 08:09 | PROVIDERS: Admitting Provider Internal Medicine Critical Care Medicine; Emergency Provider Student in an Organized Health Care Education/Training Program; PCP Internal Medicine; Visit Provider Internal Medicine Cardiovascular Disease | DX: I48.92 Unspecified atrial flutter (principal); I44.1 Atrioventricular block, second degree; I44.4 Left anterior fascicular block | CPT/HCPCS: 93010 ==

== ENCOUNTER 2025-02-02 18:21 | Outpatient (BNV) | payer OTHER, SELFPAY | END 2025-02-09 08:10 | PROVIDERS: Admitting Provider Internal Medicine Critical Care Medicine; Emergency Provider Student in an Organized Health Care Education/Training Program; PCP Internal Medicine; Visit Provider Radiology Diagnostic Radiology | DX: R56.9 Unspecified convulsions (principal) | CPT/HCPCS: 70551; 71045 ==

== ENCOUNTER → 2025-02-02 18:21 | Outpatient (BNV) | payer OTHER, SELFPAY | PROVIDERS: Admitting Provider Internal Medicine Critical Care Medicine; Emergency Provider Student in an Organized Health Care Education/Training Program; PCP Internal Medicine; Visit Provider Internal Medicine Cardiovascular Disease | DX: F19.10 Other psychoactive substance abuse, uncomplicated (principal); I48.92 Unspecified atrial flutter | CPT/HCPCS: 99222 ==

== ENCOUNTER → 2025-02-02 18:21 | Outpatient (BNV) | payer OTHER, SELFPAY | PROVIDERS: Admitting Provider Internal Medicine Critical Care Medicine; Emergency Provider Student in an Organized Health Care Education/Training Program; PCP Internal Medicine; Visit Provider Nurse Practitioner Family | DX: J80 Acute respiratory distress syndrome (principal); J18.9 Pneumonia, unspecified organism | CPT/HCPCS: 99291 ==

== ENCOUNTER → 2025-02-02 18:21 | Outpatient (BNV) | payer OTHER, SELFPAY | PROVIDERS: Admitting Provider Internal Medicine Critical Care Medicine; Emergency Provider Student in an Organized Health Care Education/Training Program; PCP Internal Medicine; Visit Provider Nurse Practitioner Psychiatric/Mental Health | DX: F13.20 Sedative, hypnotic or anxiolytic dependence, uncomplicated (principal) | CPT/HCPCS: 99222 ==

== ENCOUNTER → 2025-02-02 18:21 | Outpatient (BNV) | payer OTHER, SELFPAY | PROVIDERS: Admitting Provider Internal Medicine Critical Care Medicine; Emergency Provider Student in an Organized Health Care Education/Training Program; PCP Internal Medicine; Visit Provider Hospitalist | DX: F13.939 Sedative, hypnotic or anxiolytic use, unspecified with withdrawal, unspecified (principal) | CPT/HCPCS: 99232; 99233; 99418; 99499; G0180 ==

== ENCOUNTER → 2025-02-02 18:21 | Outpatient (BNV) | payer OTHER, SELFPAY | PROVIDERS: Admitting Provider Internal Medicine Critical Care Medicine; Emergency Provider Student in an Organized Health Care Education/Training Program; PCP Internal Medicine; Visit Provider Psychiatry & Neurology Neurology | DX: G93.40 Encephalopathy, unspecified (principal); R56.9 Unspecified convulsions | CPT/HCPCS: 99223 ==